=== PATIENT | female | born 1965 | race Caucasian/White ===

== ENCOUNTER 2017-08-07 23:34 | Emergency (ER) | payer MEDICAID ==
[2017-08-08 00:05] LABS: BASOPHILS # (AUTO) 0.1 10^3/uL (0.0-0.1); BASOPHILS % (AUTO) 0.7 %; EOSINOPHILS # (AUTO) 0.2 10^3/uL (0.0-0.7); EOSINOPHILS % (AUTO) 1.8 %; HGB - HEMOGLOBIN 12.4 g/dL (12.0-16.0); LYMPHOCYTES # (AUTO) 2.6 10^3/uL (1.5-3.5); LYMPHOCYTES % (AUTO) 31.4 %; MEAN CORPUSCULAR HGB CONC 34.3 g/dL (32.0-36.0); MEAN CORPUSCULAR VOLUME 90.5 fL (81.0-99.0); MEAN PLATELET VOLUME 7.3 fL (7.9-10.8); MONOCYTES # (AUTO) 0.5 10^3/uL (0.0-1.0); MONOCYTES % (AUTO) 6.6 %; NEUTROPHILS # (AUTO) 4.9 10^3/uL (1.5-6.6); NEUTROPHILS % (AUTO) 59.5 %; PLT - PLATELET COUNT 223 10^3/uL (130-450); RED BLOOD COUNT 3.98 10^6/uL (4.20-5.40); RED CELL DISTRIBUTION WIDTH 13.7 % (12.0-15.0); WHITE BLOOD COUNT 8.2 x10^3/uL (4.8-10.8)
[2017-08-08 00:20] LABS: ALBUMIN 3.7 g/dL (3.2-5.5); ALBUMIN/GLOBULIN RATIO 1.3 (1.0-2.2); BILIRUBIN,TOTAL 0.5 mg/dL (0.2-1.0); CALCIUM 7.9 mg/dL (8.5-10.3); CREATININE 0.8 mg/dL (0.4-1.0); TOTAL PROTEIN 6.5 g/dL (6.7-8.2)
--- NOTE | 2017-08-08 00:48 | ED Physician Documentation ---
PD HPI CHEST PAIN - Stated complaint Stated Complaint: CHEST PX - Chief complaint Chief Complaint: Cardiac - History obtained from History obtained from: Patient - History of Present Illness Timing - onset: Enter time (18:00), Today Timing - onset during: Rest (while at home watching TV) Timing - duration: Hours (5) Timing - details: Constant Pain level now: 3 Quality: Pain, Other ("heavy", "squeezing" (per patient)) Location: Other (no radiation) Improved by: Nothing Worsened by: Other (no exacerbating factors) Associated symptoms: Nausea. No: Shortness of air, Diaphoresis, Vomiting Similar symptoms before: Has not had sx before Recently seen: Not recently seen Review of Systems Constitutional: reports: Reviewed and negative Cardiac: reports: Chest pain / pressure. denies: Palpitations Respiratory: reports: Reviewed and negative GI: reports: Nausea. denies: Abdominal Pain, Vomiting PD PAST MEDICAL HISTORY - Past Medical History Past Medical History: Yes Respiratory: Pneumonia Neuro: None - Past Surgical History Past Surgical History: Yes - Present Medications Home Medications: Ambulatory Orders Medication Instructions Recorded Confirmed LORazepam [Lorazepam] 0.5 - 1 mg PO Q6HR PRN #14 tablet 08/08/17 - Allergies Allergies/Adverse Reactions: Allergies Allergy/AdvReac Type Severity Reaction Status Date / Time Sulfa (Sulfonamide Allergy Unknown Verified 08/08/17 00:03 Antibiotics) - Social History Does the pt smoke?: No Smoking Status: Never smoker Does the pt drink ETOH?: No Does the pt have substance abuse?: No - Immunizations Immunizations are current?: Yes - POLST Patient has POLST: No PD ED PE NORMAL - Vitals Vital signs reviewed: Yes - General General: Alert and oriented X 3, No acute distress, Well developed/nourished - Neck Neck: Supple, no meningeal sign - Cardiac Cardiac: RRR, No murmur, No gallop, No rub - Respiratory Respiratory: No respiratory distress, Clear bilaterally - Abdomen Abdomen: Soft, Non tender - Extremities Extremities: No edema Results - Vitals Vitals: Vital Signs - 24 hr 08/07/17 08/08/17 08/08/17 23:40 00:06 00:31 Temperature 36.8 C Heart Rate 74 67 72 Respiratory 18 16 16 Rate Blood Pressure 135/57 H O2 Saturation 98 97 98 05/08/2108/08/17 08/08/17 00:45 01:13 03:28 Temperature Heart Rate 76 68 Respiratory 16 16 17 Rate Blood Pressure 115/75 110/78 O2 Saturation 94 98 08/08/17 03:50 Temperature Heart Rate 67 Respiratory 16 Rate Blood Pressure O2 Saturation 99 Oxygen O2 Source Room air - EKG (time done) No standard instances Rate: Rate (enter#) (78) Rhythm: NSR [place]: Normal Intervals: Normal [place] QRS: Normal Ischemia: Normal ST segments - Labs Labs: Laboratory Tests 08/07/17 08/07/17 08/07/17 23:50 23:50 23:50 WBC 8.2 RBC 3.98 L Hgb 12.4 Hct 36.0 L MCV 90.5 MCH 31.0 MCHC 34.3 RDW 13.7 Plt Count 223 MPV 7.3 L Neut # 4.9 Lymph # 2.6 [place] # 0.5 Eos # 0.2 Baso # 0.1 Absolute Nucleated RBC 0.00 Nucleated RBC % 0.0 Sodium 137 Potassium 3.9 Chloride 106 Carbon Dioxide 24 Anion Gap 7.0 BUN 14 Creatinine 0.8 Estimated GFR (MDRD) 76 L Glucose 106 H Calcium 7.9 L Total Bilirubin 0.5 AST 23 ALT 24 Alkaline Phosphatase 41 L Troponin I < 0.04 Total Protein 6.5 L Albumin 3.7 Globulin 2.8 Albumin/Globulin Ratio 1.3 Lipase 31 - Rads (name of study) chest xray Radiology: Prelim report reviewed, See rad report PD MEDICAL DECISION MAKING - ED course Complexity details: reviewed results, re-evaluated patient, considered differential, d/w patient Departure - Departure Disposition: 01 Home, Self Care Clinical Impression: Chest pain Qualifiers: Chest pain type: unspecified Qualified Code(s): R07.9 - Chest pain, unspecified Condition: Good Instructions: ED Chest Pain Atypical Unkn Cause Follow-Up: Jose Sanches MD [Primary Care Provider] - Within 1 week Prescriptions: LORazepam [Lorazepam] 0.5 - 1 mg PO Q6HR PRN #14 tablet PRN Reason: Anxiety Discharge Date/Time: 08/08/17 03:52
--- NOTE | 2017-08-08 02:02 | XRAY Report ---
EXAM: CHEST RADIOGRAPHY EXAM DATE: 08/08/2017 01:30 AM. CLINICAL HISTORY: Chest pain. COMPARISON: 08/12/2013. TECHNIQUE: 2 views. FINDINGS: Lungs/Pleura: No focal opacities evident. No pleural effusion. No pneumothorax. Normal volumes. Mediastinum: Heart and mediastinal contours are unremarkable. Other: None. IMPRESSION: Stable negative 2-view chest radiography. [facility] Referring Provider Line: [phone] SITE ID: [id number]
[2017-08-08 03:29] VITALS: BP 110/78
== END 2017-08-08 03:52 | disposition home or self-care (01) ==
LOC: ED 23:34
DX: R07.9 Chest pain, unspecified (principal)
CPT/HCPCS: 36415; 71046; 80053; 83690; 84484; 85025; 93005; 99283; 99284

== ENCOUNTER 2017-09-01 08:00 | Outpatient (CLI) | payer MEDICAID | END 2017-09-01 23:59 | disposition home or self-care (01) | LOC: LAB.R 08:00 | PROVIDERS: ATTEND Internal Medicine | DX: K59.00 Constipation, unspecified (principal); R11.0 Nausea | CPT/HCPCS: 81599; 87177; 87209; 87329 ==

== ENCOUNTER 2020-04-18 07:00 | Outpatient (CLI) | payer MEDICAID | END 2020-04-18 23:59 | disposition home or self-care (01) | LOC: COV 07:00 | PROVIDERS: ATTEND Family Medicine | DX: R05 Cough (principal); Z20.822 Contact with and (suspected) exposure to COVID-19; R53.83 Other fatigue; R68.83 Chills (without fever); R19.7 Diarrhea, unspecified; R11.0 Nausea ==

== ENCOUNTER 2021-12-29 14:21 | Emergency (ER) | payer MEDICAID ==
--- OUTSIDE RECORDS SUMMARY | 2021-12-29 14:28 | EXTERNAL MEDICAL SUMMARY RPT | Continuity of Care Document ---
:1965 Author Organization [facility] Address [address] [place] [address] Phone Allergies and Intolerances date description facility type (no date) [facility] (unknown) Encounters No information. Functional Status No information. Immunizations No information. Medications No information. Problems No information. Procedures date description facility [id number] [facility] Results/Labs test date author facility value unit interpret ation Result panel 1 (unknown) (no (unknown) (unknown) (no value) (units (unk nown) date) unknown) (unknown) (no (unknown) (unknown) [place], [place] (units ( unknown) date) [id number] unknown) (unknown) (no (unknown) (unknown) Draft (units (unkno wn) date) unknown) (unknown) (no (unknown) (unknown) [facility] (units (unknown[facility] date[facility] unknown) (unknown) (no (unknown) (unknown) HIVES (units (unkno wn) date) unknown) (unknown) (no (unknown) (unknown) Internal (units (unkno wn) date) Medicine Office unknown) Visit (unknown) (no (unknown) (unknown) NAUSEA (units (unkno wn) date) unknown) (unknown) (no (unknown) (unknown) (no value) (units (unk nown) date) unknown) (unknown) (no (unknown) (unknown) (Severe, (units (unkno wn) date) Verified 09/12/21 unknown) 10:51) (unknown) (no (unknown) (unknown) [id number] (units (unkno wn) date) unknown) (unknown) (no (unknown) (unknown) 09/25/21 (units (unkno wn) date) unknown) (unknown) (no (unknown) (unknown) Age/Sex: 56 / F (units (unknown) date) Date of Service: unknown) (unknown) (no (unknown) (unknown) Allergies (units (unkn own) date) unknown) (unknown) (no (unknown) (unknown) Arthritis (units (unkn own) date) unknown) (unknown) (no (unknown) (unknown) Asthma (units (unkno wn) date) unknown) (unknown) (no (unknown) (unknown) Attending Dr: (units ( unknown) date) Rocco Pyle MD unknown) (unknown) (no (unknown) (unknown) Bruises easily (units (unknown) date) unknown) (unknown) (no (unknown) (unknown) Constipation (units (u nknown) date) unknown) (unknown) (no (unknown) (unknown) : 1965 (units (unknown) date) Acct:[id number] unknown) (unknown) (no (unknown) (unknown) Dept at (units (unkno wn) date) . unknown) (unknown) (no (unknown) (unknown) Documented By: (units (unknown) date) Rocco Pyle MD unknown) 10/03/21 0727 (unknown) (no (unknown) (unknown) Family History (units (unknown) date) (Reviewed unknown) 09/12/21 @ 14:01 by Milka Viramontes PA-C) (unknown) (no (unknown) (unknown) Father Heart (units (u nknown) date) disease unknown) (unknown) (no (unknown) (unknown) Fibromyalgia (units (u nknown) date) unknown) (unknown) (no (unknown) (unknown) Former smoker (units ( unknown) date) unknown) (unknown) (no (unknown) (unknown) Gastroparesis (units ( unknown) date) unknown) (unknown) (no (unknown) (unknown) Grandfather (units (un known) date) Heart disease unknown) (unknown) (no (unknown) (unknown) Grandfather (units (un known) date) Stomach cancer unknown) (unknown) (no (unknown) (unknown) Grandmother (units (un known) date) Cancer unknown) (unknown) (no (unknown) (unknown) Greater (units (unkno wn) date) trochanteric unknown) bursitis of right hip (unknown) (no (unknown) (unknown) Heart murmur (units (u nknown) date) unknown) (unknown) (no (unknown) (unknown) History of foot (units (unknown) date) surgery (08/2015) unknown) (unknown) (no (unknown) (unknown) History of (units (unk nown) date) pneumonia unknown) (unknown) (no (unknown) (unknown) History of third (units (unknown) date) molar tooth unknown) extraction (1984) (unknown) (no (unknown) (unknown) History of (units (unk nown) date) thyroidectomy unknown) (07/11/14) (unknown) (no (unknown) (unknown) Intake (units (unkno wn) date) unknown) (unknown) (no (unknown) (unknown) Intake Note: (units (u nknown) date) unknown) (unknown) (no (unknown) (unknown) Last Menstural (units (unknown) date) Cycle + Details unknown) (unknown) (no (unknown) (unknown) Loc: [facility] (units (unkno wn) date) unknown) (unknown) (no (unknown) (unknown) Low blood sugar (units (unknown) date) unknown) (unknown) (no (unknown) (unknown) 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) () (unknown) (no (unknown) (unknown) Medical History (units (unknown) date) (Reviewed unknown) 09/12/21 @ 14:01 by Milka Viramontes PA-C) (unknown) (no (unknown) (unknown) Menstrual (units (unkn own) date) migraine, not unknown) intractable, without status migrainosus (unknown) (no (unknown) (unknown) Migraines (units (unkn own) date) unknown) (unknown) (no (unknown) (unknown) Mother Stroke (units ( unknown) date) unknown) (unknown) (no (unknown) (unknown) Osteoarthritis (units (unknown) date) unknown) (unknown) (no (unknown) (unknown) Other Menstrual (units (unknown) date) Period: unknown) Postmenopausal (unknown) (no (unknown) (unknown) PFSH (units (unkno wn) date) unknown) (unknown) (no (unknown) (unknown) Patient: (units (unkno wn) date) Britton,Yolanda A unknown) MR#: [id number] (unknown) (no (unknown) (unknown) Piriformis (units (unk nown) date) syndrome unknown) (unknown) (no (unknown) (unknown) Reason For Visit (units (unknown) date) unknown) (unknown) (no (unknown) (unknown) SENSITIVE TO (units (u nknown) date) NARCOTICS Allergy unknown) (Severe, Uncoded 09/12/21 10:51) (unknown) (no (unknown) (unknown) Sacral (units (unkno wn) date) dysfunction unknown) (unknown) (no (unknown) (unknown) Signed By: (units (unk nown) date) unknown) (unknown) (no (unknown) (unknown) Smoking Status: (units (unknown) date) Former smoker unknown) (unknown) (no (unknown) (unknown) Social History (units (unknown) date) unknown) (unknown) (no (unknown) (unknown) Status post (units (un known) date) endometrial unknown) ablation (07/11/14) (unknown) (no (unknown) (unknown) Status post (units (un known) date) laparoscopy unknown) (1982) (unknown) (no (unknown) (unknown) Status post (units (un known) date) laparoscopy unknown) (2001) (unknown) (no (unknown) (unknown) Sulfa (units (unkno wn) date) (Sulfonamide unknown) Antibiotics) [SULFA (SULFONAMIDE ANTIBIOTICS)] Allergy (unknown) (no (unknown) (unknown) Surgical History (units (unknown) date) (Reviewed unknown) 09/12/21 @ 14:01 by Mikla Viramontes PA-C) (unknown) (no (unknown) (unknown) Tear of (units (unkno wn) date) acetabular labrum unknown) (unknown) (no (unknown) (unknown) This note may (units ( unknown) date) have been all or unknown) partially generated using voice recognition (unknown) (no (unknown) (unknown) Tobacco + (units (unkn own) date) Substance Use unknown) (unknown) (no (unknown) (unknown) Tobacco Status (units (unknown) date) unknown) (unknown) (no (unknown) (unknown) Visit Reasons: (units (unknown) date) hand follow unknown) up/pre DM labs follow up (unknown) (no (unknown) (unknown) alcohol intake: (units (unknown) date) current unknown) (unknown) (no (unknown) (unknown) codeine (units (unkno wn) date) [CODEINE] Allergy unknown) (Mild, Verified 09/12/21 10:51) (unknown) (no (unknown) (unknown) covid (units (unkno wn) date) unknown) (unknown) (no (unknown) (unknown) cscope (units (unkno wn) date) unknown) (unknown) (no (unknown) (unknown) f/u hand (units (unkno wn) date) unknown) (unknown) (no (unknown) (unknown) have occurred. (units (unknown) date) If there are any unknown) questions, please contact the Medical Records (unknown) (no (unknown) (unknown) household (units (unkn own) date) members: none unknown) (unknown) (no (unknown) (unknown) mammo (units (unkno wn) date) unknown) (unknown) (no (unknown) (unknown) marital status: (units (unknown) date) unknown unknown) (unknown) (no (unknown) (unknown) may occur. (units (unk nown) date) Occasional unknown) wrong-word or 'sound-alike' substitutions may have (unknown) (no (unknown) (unknown) occupational (units (u nknown) date) status: employed unknown) (unknown) (no (unknown) (unknown) occurred due to (units (unknown) date) the inherent unknown) limitations of voice recognition software. Please (unknown) (no (unknown) (unknown) pre- DM labs (units (u nknown) date) unknown) (unknown) (no (unknown) (unknown) read the note (units ( unknown) date) carefully and unknown) recognize, using context, where these substitutions (unknown) (no (unknown) (unknown) software. (units (unkn own) date) Although every unknown) effort is made to edit content, wink cutter operator errors (unknown) (no (unknown) (unknown) substance use (units ( unknown) date) type: does not unknown) use (unknown) (no (unknown) (unknown) td (units (unkno wn) date) unknown) Result panel 2 (unknown) (no (unknown) (unknown) (no value) (units (unk nown) date) unknown) (unknown) (no (unknown) (unknown) [place], [place] (units ( unknown) date) [id number] unknown) (unknown) (no (unknown) (unknown) Draft (units (unkno wn) date) unknown) (unknown) (no (unknown) (unknown) [facility] ([facility] ([facility] date[facility] unknown) (unknown) (no (unknown) (unknown) HIVES (units (unkno wn) date) unknown) (unknown) (no (unknown) (unknown) Internal (units (unkno wn) date) Medicine Office unknown) Visit (unknown) (no (unknown) (unknown) NAUSEA (units (unkno wn) date) unknown) (unknown) (no (unknown) (unknown) (no value) (units (unk nown) date) unknown) (unknown) (no (unknown) (unknown) (Severe, (units (unkno wn) date) Verified 09/12/21 unknown) 10:51) (unknown) (no (unknown) (unknown) [id number] (units (unkno wn) date) unknown) (unknown) (no (unknown) (unknown) 10/03/21 (units (unkno wn) date) unknown) (unknown) (no (unknown) (unknown) Age/Sex: 56 / F (units (unknown) date) Date of Service: unknown) (unknown) (no (unknown) (unknown) Allergies (units (unkn own) date) unknown) (unknown) (no (unknown) (unknown) Arthritis (units (unkn own) date) unknown) (unknown) (no (unknown) (unknown) Asthma (units (unkno wn) date) unknown) (unknown) (no (unknown) (unknown) Attending Dr: (units ( unknown) date) Rocco Pyle MD unknown) (unknown) (no (unknown) (unknown) Bruises easily (units (unknown) date) unknown) (unknown) (no (unknown) (unknown) Constipation (units (u nknown) date) unknown) (unknown) (no (unknown) (unknown) : 1965 (units (unknown) date) Acct:[id number] unknown) (unknown) (no (unknown) (unknown) Dept at (units (unkno wn) date) . unknown) (unknown) (no (unknown) (unknown) Documented By: (units (unknown) date) Rocco Pyle MD unknown) 10/03/21 0727 (unknown) (no (unknown) (unknown) Family History (units (unknown) date) (Reviewed unknown) 09/12/21 @ 14:01 by Milka Viramontes PA-C) (unknown) (no (unknown) (unknown) Father Heart (units (u nknown) date) disease unknown) (unknown) (no (unknown) (unknown) Fibromyalgia (units (u nknown) date) unknown) (unknown) (no (unknown) (unknown) Former smoker (units ( unknown) date) unknown) (unknown) (no (unknown) (unknown) Gastroparesis (units ( unknown) date) unknown) (unknown) (no (unknown) (unknown) Grandfather (units (un known) date) Heart disease unknown) (unknown) (no (unknown) (unknown) Grandfather (units (un known) date) Stomach cancer unknown) (unknown) (no (unknown) (unknown) Grandmother (units (un known) date) Cancer unknown) (unknown) (no (unknown) (unknown) Greater (units (unkno wn) date) trochanteric unknown) bursitis of right hip (unknown) (no (unknown) (unknown) Heart murmur (units (u nknown) date) unknown) (unknown) (no (unknown) (unknown) History of foot (units (unknown) date) surgery (08/2015) unknown) (unknown) (no (unknown) (unknown) History of (units (unk nown) date) pneumonia unknown) (unknown) (no (unknown) (unknown) History of third (units (unknown) date) molar tooth unknown) extraction (1984) (unknown) (no (unknown) (unknown) History of (units (unk nown) date) thyroidectomy unknown) (07/11/14) (unknown) (no (unknown) (unknown) Intake (units (unkno wn) date) unknown) (unknown) (no (unknown) (unknown) Intake Note: (units (u nknown) date) unknown) (unknown) (no (unknown) (unknown) Last Menstural (units (unknown) date) Cycle + Details unknown) (unknown) (no (unknown) (unknown) Loc: [facility] (units (unkno wn) date) unknown) (unknown) (no (unknown) (unknown) Low blood sugar (units (unknown) date) unknown) (unknown) (no (unknown) (unknown) 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) (unknown) (no (unknown) (unknown) Medical History (units (unknown) date) (Reviewed unknown) 09/12/21 @ 14:01 by Milka Viramontes PA-C) (unknown) (no (unknown) (unknown) Menstrual (units (unkn own) date) migraine, not unknown) intractable, without status migrainosus (unknown) (no (unknown) (unknown) Migraines (units (unkn own) date) unknown) (unknown) (no (unknown) (unknown) Mother Stroke (units ( unknown) date) unknown) (unknown) (no (unknown) (unknown) Osteoarthritis (units (unknown) date) unknown) (unknown) (no (unknown) (unknown) Other Menstrual (units (unknown) date) Period: unknown) Postmenopausal (unknown) (no (unknown) (unknown) PFSH (units (unkno wn) date) unknown) (unknown) (no (unknown) (unknown) Patient: (units (unkno wn) date) Yolanda Britton unknown) MR#: [id number] (unknown) (no (unknown) (unknown) Piriformis (units (unk nown) date) syndrome unknown) (unknown) (no (unknown) (unknown) Reason For Visit (units (unknown) date) unknown) (unknown) (no (unknown) (unknown) SENSITIVE TO (units (u nknown) date) NARCOTICS Allergy unknown) (Severe, Uncoded 09/12/21 10:51) (unknown) (no (unknown) (unknown) Sacral (units (unkno wn) date) dysfunction unknown) (unknown) (no (unknown) (unknown) Signed By: (units (unk nown) date) unknown) (unknown) (no (unknown) (unknown) Smoking Status: (units (unknown) date) Former smoker unknown) (unknown) (no (unknown) (unknown) Social History (units (unknown) date) unknown) (unknown) (no (unknown) (unknown) Status post (units (un known) date) endometrial unknown) ablation (07/11/14) (unknown) (no (unknown) (unknown) Status post (units (un known) date) laparoscopy unknown) (1982) (unknown) (no (unknown) (unknown) Status post (units (un known) date) laparoscopy unknown) (2001) (unknown) (no (unknown) (unknown) Sulfa (units (unkno wn) date) (Sulfonamide unknown) Antibiotics) [SULFA (SULFONAMIDE ANTIBIOTICS)] Allergy (unknown) (no (unknown) (unknown) Surgical History (units (unknown) date) (Reviewed unknown) 09/12/21 @ 14:01 by Milka Viramontes PA-C) (unknown) (no (unknown) (unknown) Tear of (units (unkno wn) date) acetabular labrum unknown) (unknown) (no (unknown) (unknown) This note may (units ( unknown) date) have been all or unknown) partially generated using voice recognition (unknown) (no (unknown) (unknown) Tobacco + (units (unkn own) date) Substance Use unknown) (unknown) (no (unknown) (unknown) Tobacco Status (units (unknown) date) unknown) (unknown) (no (unknown) (unknown) Visit Reasons: (units (unknown) date) hand follow unknown) up/pre DM labs follow up (unknown) (no (unknown) (unknown) alcohol intake: (units (unknown) date) current unknown) (unknown) (no (unknown) (unknown) codeine (units (unkno wn) date) [CODEINE] Allergy unknown) (Mild, Verified 09/12/21 10:51) (unknown) (no (unknown) (unknown) covid (units (unkno wn) date) unknown) (unknown) (no (unknown) (unknown) cscope - she (units (u nknown) date) sees Gi unknown) (unknown) (no (unknown) (unknown) f/u hand- (units (unkn own) date) physical therapy unknown) did not help still having cramping (unknown) (no (unknown) (unknown) have occurred. (units (unknown) date) If there are any unknown) questions, please contact the Medical Records (unknown) (no (unknown) (unknown) household (units (unkn own) date) members: none unknown) (unknown) (no (unknown) (unknown) mammo - (units (unkno wn) date) unknown) (unknown) (no (unknown) (unknown) marital status: (units (unknown) date) unknown unknown) (unknown) (no (unknown) (unknown) may occur. (units (unk nown) date) Occasional unknown) wrong-word or 'sound-alike' substitutions may have (unknown) (no (unknown) (unknown) occupational (units (u nknown) date) status: employed unknown) (unknown) (no (unknown) (unknown) occurred due to (units (unknown) date) the inherent unknown) limitations of voice recognition software. Please (unknown) (no (unknown) (unknown) pre- DM labs (units (u nknown) date) unknown) (unknown) (no (unknown) (unknown) read the note (units ( unknown) date) carefully and unknown) recognize, using context, where these substitutions (unknown) (no (unknown) (unknown) rt foot on top (units (unknown) date) it hurts not sure unknown) if its broken but no known injury (unknown) (no (unknown) (unknown) software. (units (unkn own) date) Although every unknown) effort is made to edit content, wink cutter operator errors (unknown) (no (unknown) (unknown) substance use (units ( unknown) date) type: does not unknown) use (unknown) (no (unknown) (unknown) td (units (unkno wn) date) unknown) Result panel 3 (unknown) (no (unknown) (unknown) (no value) (units (unk nown) date) unknown) (unknown) (no (unknown) (unknown) (no value) (units (unk nown) date) unknown) (unknown) (no (unknown) (unknown) 10/03/21 (units (unkno wn) date) unknown) (unknown) (no (unknown) (unknown) 11:39 (units (unkno wn) date) unknown) (unknown) (no (unknown) (unknown) [employer] (units ( unknown) date) [id number] unknown) (unknown) (no (unknown) (unknown) Draft (units (unkno wn) date) unknown) (unknown) (no (unknown) (unknown) [facility] (units (unknown) date[facility] unknown) (unknown) (no (unknown) (unknown) HIVES (units (unkno wn) date) unknown) (unknown) (no (unknown) (unknown) Internal Medicine (units (unknown) date) Office Visit unknown) (unknown) (no (unknown) (unknown) NAUSEA (units (unkno wn) date) unknown) (unknown) (no (unknown) (unknown) (no value) (units (unk nown) date) unknown) (unknown) (no (unknown) (unknown) (Severe, Verified (units (unknown) date) 10/03/21 11:38) unknown) (unknown) (no (unknown) (unknown) [id number] (units (unkno wn) date) unknown) (unknown) (no (unknown) (unknown) 10/03/21 (units (unkno wn) date) unknown) (unknown) (no (unknown) (unknown) 10/03/21] (units (unkn own) date) unknown) (unknown) (no (unknown) (unknown) 11/17/17 [History (units (unknown) date) Confirmed unknown) 10/03/21] (unknown) (no (unknown) (unknown) 11/27/20 [History (units (unknown) date) Confirmed unknown) 10/03/21] (unknown) (no (unknown) (unknown) 12/06/20 [Rx (units (u nknown) date) Confirmed unknown) 10/03/21] (unknown) (no (unknown) (unknown) Age/Sex: 56 / F (units (unknown) date) Date of Service: unknown) (unknown) (no (unknown) (unknown) Allergies (units (unkn own) date) unknown) (unknown) (no (unknown) (unknown) Arthritis (units (unkn own) date) unknown) (unknown) (no (unknown) (unknown) Asthma (units (unkno wn) date) unknown) (unknown) (no (unknown) (unknown) Attending Dr: (units ( unknown) date) Rocco Pyle MD unknown) (unknown) (no (unknown) (unknown) BMI 35.6 (units (unkno wn) date) unknown) (unknown) (no (unknown) (unknown) BP 122/80 (units (unkn own) date) unknown) (unknown) (no (unknown) (unknown) Blood Pressure (units (unknown) date) Location Lt unknown) brachial (unknown) (no (unknown) (unknown) Bruises easily (units (unknown) date) unknown) (unknown) (no (unknown) (unknown) Confirmed (units (unkn own) date) 10/03/21] unknown) (unknown) (no (unknown) (unknown) Constipation (units (u nknown) date) unknown) (unknown) (no (unknown) (unknown) : 1965 (units (unknown) date) Acct:[id number] unknown) (unknown) (no (unknown) (unknown) Dept at (units (unkno wn) date) . unknown) (unknown) (no (unknown) (unknown) Documented By: (units (unknown) date) Rocco Pyle MD unknown) 10/03/21 0727 (unknown) (no (unknown) (unknown) Family History (units (unknown) date) (Reviewed 09/12/21 unknown) @ 14:01 by Milka Viramontes PA-C) (unknown) (no (unknown) (unknown) Father Heart (units (u nknown) date) disease unknown) (unknown) (no (unknown) (unknown) Fibromyalgia (units (u nknown) date) unknown) (unknown) (no (unknown) (unknown) Former smoker (units ( unknown) date) unknown) (unknown) (no (unknown) (unknown) Gastroparesis (units ( unknown) date) unknown) (unknown) (no (unknown) (unknown) Grandfather Heart (units (unknown) date) disease unknown) (unknown) (no (unknown) (unknown) Grandfather (units (un known) date) Stomach cancer unknown) (unknown) (no (unknown) (unknown) Grandmother (units (un known) date) Cancer unknown) (unknown) (no (unknown) (unknown) Greater (units (unkno wn) date) trochanteric unknown) bursitis of right hip (unknown) (no (unknown) (unknown) Health Management (units (unknown) date) unknown) (unknown) (no (unknown) (unknown) Health Management (units (unknown) date) reviewed with unknown) patient: Yes (unknown) (no (unknown) (unknown) Heart murmur (units (u nknown) date) unknown) (unknown) (no (unknown) (unknown) Height 5 ft 6.5 (units (unknown) date) in unknown) (unknown) (no (unknown) (unknown) History of foot (units (unknown) date) surgery (08/2015) unknown) (unknown) (no (unknown) (unknown) History of (units (unk nown) date) pneumonia unknown) (unknown) (no (unknown) (unknown) History of third (units (unknown) date) molar tooth unknown) extraction (1984) (unknown) (no (unknown) (unknown) History of (units (unk nown) date) thyroidectomy unknown) (07/11/14) (unknown) (no (unknown) (unknown) Intake (units (unkno wn) date) unknown) (unknown) (no (unknown) (unknown) Intake Note: (units (u nknown) date) unknown) (unknown) (no (unknown) (unknown) Last Menstural (units (unknown) date) Cycle + Details unknown) (unknown) (no (unknown) (unknown) Loc: [facility] (units (unkno wn) date) unknown) (unknown) (no (unknown) (unknown) Low blood sugar (units (unknown) date) unknown) (unknown) (no (unknown) (unknown) 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) () (unknown) (no (unknown) (unknown) Medical History (units (unknown) date) (Reviewed 09/12/21 unknown) @ 14:01 by Milka Viramontes PA-C) (unknown) (no (unknown) (unknown) Medications (units (un known) date) unknown) (unknown) (no (unknown) (unknown) Menstrual (units (unkn own) date) migraine, not unknown) intractable, without status migrainosus (unknown) (no (unknown) (unknown) Migraines (units (unkn own) date) unknown) (unknown) (no (unknown) (unknown) Mother Stroke (units ( unknown) date) unknown) (unknown) (no (unknown) (unknown) Osteoarthritis (units (unknown) date) unknown) (unknown) (no (unknown) (unknown) Other Menstrual (units (unknown) date) Period: unknown) Postmenopausal (unknown) (no (unknown) (unknown) Oxygen Delivery (units (unknown) date) Method room air unknown) (unknown) (no (unknown) (unknown) PFSH (units (unkno wn) date) unknown) (unknown) (no (unknown) (unknown) PRN 08/24/19 (units (u nknown) date) [History Confirmed unknown) 10/03/21] (unknown) (no (unknown) (unknown) Patient: (units (unkno wn) date) Yolanda Britton unknown) MR#: [id number] (unknown) (no (unknown) (unknown) Piriformis (units (unk nown) date) syndrome unknown) (unknown) (no (unknown) (unknown) Position Sitting (units (unknown) date) unknown) (unknown) (no (unknown) (unknown) Pulse 91 H (units (unk nown) date) unknown) (unknown) (no (unknown) (unknown) Pulse Oximetry (units (unknown) date) (%) 99 unknown) (unknown) (no (unknown) (unknown) Pulse Source (units (u nknown) date) Monitor unknown) (unknown) (no (unknown) (unknown) Reason For Visit (units (unknown) date) unknown) (unknown) (no (unknown) (unknown) SENSITIVE TO (units (u nknown) date) NARCOTICS Allergy unknown) (Severe, Uncoded 10/03/21 11:38) (unknown) (no (unknown) (unknown) SUBCUT QMONTH (units ( unknown) date) 06/13/21 [History unknown) Confirmed 10/03/21] (unknown) (no (unknown) (unknown) Sacral (units (unkno wn) date) dysfunction unknown) (unknown) (no (unknown) (unknown) Signed By: (units (unk nown) date) unknown) (unknown) (no (unknown) (unknown) Smoking Status: (units (unknown) date) Former smoker unknown) (unknown) (no (unknown) (unknown) Social History (units (unknown) date) unknown) (unknown) (no (unknown) (unknown) Status post (units (un known) date) endometrial unknown) ablation (07/11/14) (unknown) (no (unknown) (unknown) Status post (units (un known) date) laparoscopy (1982) unknown) (unknown) (no (unknown) (unknown) Status post (units (un known) date) laparoscopy (2001) unknown) (unknown) (no (unknown) (unknown) Sulfa (units (unkno wn) date) (Sulfonamide unknown) Antibiotics) [SULFA (SULFONAMIDE ANTIBIOTICS)] Allergy (unknown) (no (unknown) (unknown) Surgical History (units (unknown) date) (Reviewed 09/12/21 unknown) @ 14:01 by Milka Viramontes PA-C) (unknown) (no (unknown) (unknown) Tear of (units (unkno wn) date) acetabular labrum unknown) (unknown) (no (unknown) (unknown) This note may (units ( unknown) date) have been all or unknown) partially generated using voice recognition (unknown) (no (unknown) (unknown) Tobacco + (units (unkn own) date) Substance Use unknown) (unknown) (no (unknown) (unknown) Tobacco Status (units (unknown) date) unknown) (unknown) (no (unknown) (unknown) Visit Reasons: (units (unknown) date) hand follow up/pre unknown) DM labs follow up (unknown) (no (unknown) (unknown) Vitals (units (unkno wn) date) unknown) (unknown) (no (unknown) (unknown) Weight 224 lb 9 (units (unknown) date) oz unknown) (unknown) (no (unknown) (unknown) alcohol intake: (units (unknown) date) current unknown) (unknown) (no (unknown) (unknown) cholecalciferol (units (unknown) date) (vitamin D3) 25 unknown) mcg (1,000 unit) capsule 1,000 unit PO DAILY (unknown) (no (unknown) (unknown) codeine [CODEINE] (units (unknown) date) Allergy (Mild, unknown) Verified 10/03/21 11:38) (unknown) (no (unknown) (unknown) covid- done (units (un known) date) unknown) (unknown) (no (unknown) (unknown) cscope - she sees (units (unknown) date) [facility], was the first one (unknown) (no (unknown) (unknown) diphenhydramine (units (unknown) date) 25 unknown) mg-acetaminophen 500 mg tablet (Tylenol PM Extra Strength) 1 (unknown) (no (unknown) (unknown) diphenhydramine-a (units (unknown) date) cetaminophen unknown) [Tylenol PM] PO BEDTIME 03/09/19 [History (unknown) (no (unknown) (unknown) doxylamine (units (unk nown) date) succinate 25 mg unknown) tablet (Unisom (doxylamine)) 25 mg PO BEDTIME PRN (unknown) (no (unknown) (unknown) eye support PO (units (unknown) date) 11/27/20 [History unknown) Confirmed 10/03/21] (unknown) (no (unknown) (unknown) f/u hand- (units (unkn own) date) physical therapy unknown) did not help still having cramping (unknown) (no (unknown) (unknown) fluconazole 150 (units (unknown) date) mg tablet 150 mg unknown) PO Q3D 2 doses #2 tabs 09/18/21 [Rx Confirmed (unknown) (no (unknown) (unknown) galcanezumab-gnlm (units (unknown) date) 120 mg/mL unknown) subcutaneous pen injector (Emgality Pen) 120 mg (unknown) (no (unknown) (unknown) have occurred. If (units (unknown) date) there are any unknown) questions, please contact the Medical Records (unknown) (no (unknown) (unknown) household (units (unkn own) date) members: none unknown) (unknown) (no (unknown) (unknown) lactobacillus (units ( unknown) date) combination no.8 unknown) [Adult Probiotic] PO DAILY 05/10/19 [History (unknown) (no (unknown) (unknown) levonorgestrel-eth (units (unknown) date) inyl estradiol 0.1 unknown) mg-20 mcg tablet (Aviane) 1 tab PO DAILY #4 (unknown) (no (unknown) (unknown) levothyroxine 100 (units (unknown) date) mcg tablet 100 mcg unknown) PO DAILY 03/06/21 [History Confirmed (unknown) (no (unknown) (unknown) mammo -done in (units (unknown) date) fall unknown) (unknown) (no (unknown) (unknown) marital status: (units (unknown) date) unknown unknown) (unknown) (no (unknown) (unknown) may occur. (units (unk nown) date) Occasional unknown) wrong-word or 'sound-alike' substitutions may have (unknown) (no (unknown) (unknown) mecobalamin (units (un known) date) (vitamin B12) unknown) 1,000 mcg disintegrating tablet,sublingual 1,000 mcg (unknown) (no (unknown) (unknown) melatonin 10 mg (units (unknown) date) capsule 5 mg PO unknown) BEDTIME Sleep 08/24/19 [History Confirmed (unknown) (no (unknown) (unknown) occupational (units (u nknown) date) status: employed unknown) (unknown) (no (unknown) (unknown) occurred due to (units (unknown) date) the inherent unknown) limitations of voice recognition software. Please (unknown) (no (unknown) (unknown) packets 05/31/21 (units (unknown) date) [Rx Confirmed unknown) 10/03/21] (unknown) (no (unknown) (unknown) pantoprazole 20 (units (unknown) date) mg tablet,delayed unknown) release 20 mg PO DAILY 05/10/19 [History (unknown) (no (unknown) (unknown) polyethylene (units (u nknown) date) glycol 3350 17 unknown) gram oral powder packet (Miralax) 17 gram PO DAILY (unknown) (no (unknown) (unknown) pre- DM labs (units (u nknown) date) unknown) (unknown) (no (unknown) (unknown) prednisone 10 mg (units (unknown) date) tablet 5 mg PO unknown) DAILY 03/06/21 [History Confirmed 10/03/21] (unknown) (no (unknown) (unknown) read the note (units ( unknown) date) carefully and unknown) recognize, using context, where these substitutions (unknown) (no (unknown) (unknown) rizatriptan 10 mg (units (unknown) date) tablet (Maxalt) 10 unknown) mg PO Q2H PRN Migraine Headache #9 tabs (unknown) (no (unknown) (unknown) rt foot on top it (units (unknown) date) hurts not sure if unknown) its broken but no known injury (unknown) (no (unknown) (unknown) software. (units (unkn own) date) Although every unknown) effort is made to edit content, wink cutter operator errors (unknown) (no (unknown) (unknown) sublingual DAILY (units (unknown) date) 05/10/19 [History unknown) Confirmed 10/03/21] (unknown) (no (unknown) (unknown) substance use (units ( unknown) date) type: does not use unknown) (unknown) (no (unknown) (unknown) tab PO BEDTIME (units (unknown) date) PRN Sleep 11/17/17 unknown) [History Confirmed 10/03/21] (unknown) (no (unknown) (unknown) td- ? (units (unkno wn) date) unknown) Result panel 4 (unknown) (no (unknown) (unknown) (no value) (units (unk nown) date) unknown) (unknown) (no (unknown) (unknown) [address] [place] [address] (units (unknown) date) unknown) (unknown) (no (unknown) (unknown) [place], [place] (units ( unknown) date) [id number] unknown) (unknown) (no (unknown) (unknown) [facility] (units (unknown) date) unknown) (unknown) (no (unknown) (unknown) Signed (units (unkno wn) date) unknown) (unknown) (no (unknown) (unknown) XRay Report (units (un known) date) unknown) (unknown) (no (unknown) (unknown) (no value) (units (unk nown) date) unknown) (unknown) (no (unknown) (unknown) 10/03/21 (units (unkno wn) date) unknown) (unknown) (no (unknown) (unknown) Approved by: (units (u nknown) date) Barrie Reyes, spencer Varela on 10/03/2021 at 14:30 (unknown) (no (unknown) (unknown) Bones: No (units (unkn own) date) fractures or unknown) dislocations. No suspicious bony lesions. There is a (unknown) (no (unknown) (unknown) COMPARISON: (units (un known) date) [facility], unknown) CR, XR FOOT LT MIN 3V, 01/27/2020, 15:30. (unknown) (no (unknown) (unknown) Dictated by: (units (u nknown) date) spencer Tafoya M.D. on 10/03/2021 at 14:28 (unknown) (no (unknown) (unknown) FINDINGS: (units (unkn own) date) unknown) (unknown) (no (unknown) (unknown) IMPRESSION: No (units (unknown) date) acute abnormality unknown) of the left foot. (unknown) (no (unknown) (unknown) INDICATIONS: Left (units (unknown) date) foot pain unknown) (unknown) (no (unknown) (unknown) Soft tissues: No (units (unknown) date) tibiotalar joint unknown) effusion. Achilles tendon appears normal. (unknown) (no (unknown) (unknown) TECHNIQUE: 3 (units (u nknown) date) views of the foot unknown) were acquired. (unknown) (no (unknown) (unknown) calcaneal spur. (units (unknown) date) Minimal unknown) degenerative changes of the interphalangeal joints. (unknown) (no (unknown) (unknown) or evidence of (units (unknown) date) inflammatory unknown) arthropathy. (unknown) (no (unknown) (unknown) [id number] (units (unkn own) date) unknown) (unknown) (no (unknown) (unknown) Accession Number: (units (unknown) date) [id number] unknown) (unknown) (no (unknown) (unknown) Age/Sex: 56 / F (units (unknown) date) Date of Service: unknown) (unknown) (no (unknown) (unknown) : 1965 (units (unknown) date) Acct:[id number] unknown) (unknown) (no (unknown) (unknown) Loc: RAD (units (unkno wn) date) unknown) (unknown) (no (unknown) (unknown) No erosions (units (un known) date) unknown) (unknown) (no (unknown) (unknown) Ordering (units (unkno wn) date) Provider: unknown) Rocco Pyle MD (unknown) (no (unknown) (unknown) PROCEDURE: XR (units ( unknown) date) FOOT LT MIN 3V unknown) (unknown) (no (unknown) (unknown) Patient: (units (unkno wn) date) Yolanda Britton unknown) MR#: [id number] (unknown) (no (unknown) (unknown) Procedure: XR (units ( unknown) date) foot LT min 3V unknown) (unknown) (no (unknown) (unknown) dorsal (units (unkno wn) date) unknown) Result panel 5 (unknown) (no (unknown) (unknown) (no value) (units (unk nown) date) unknown) (unknown) (no (unknown) (unknown) Status: Acute (units ( unknown) date) unknown) (unknown) (no (unknown) (unknown) (no value) (units (unk nown) date) unknown) (unknown) (no (unknown) (unknown) ADDENDUM (units (u nknown) date) unknown) (unknown) (no (unknown) (unknown) 10/03/21 (units (unkno wn) date) unknown) (unknown) (no (unknown) (unknown) 10/06/21 0903 (units ( unknown) date) unknown) (unknown) (no (unknown) (unknown) 10/06/21 0904 (units ( unknown) date) unknown) (unknown) (no (unknown) (unknown) 11:39 (units (unkno wn) date) unknown) (unknown) (no (unknown) (unknown) [facility] (units ( unknown) date) [id number] unknown) (unknown) (no (unknown) (unknown) [facility] ([facility] unknown) (unknown) (no (unknown) (unknown) HIVES (units (unkno wn) date) unknown) (unknown) (no (unknown) (unknown) Internal Medicine (units (unknown) date) Office Visit unknown) (unknown) (no (unknown) (unknown) NAUSEA (units (unkno wn) date) unknown) (unknown) (no (unknown) (unknown) Signed with (units (un known) date) Addenda unknown) (unknown) (no (unknown) (unknown) (no value) (units (unk nown) date) unknown) (unknown) (no (unknown) (unknown) At the very (units (un known) date) least, I require unknown) rheumatology to say in writing that they have (unknown) (no (unknown) (unknown) (1) 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, multiple sites: (unknown) (no (unknown) (unknown) (2) Steroid (units (un known) date) dependent: unknown) (unknown) (no (unknown) (unknown) (3) Fibromyalgia: (units (unknown) date) unknown) (unknown) (no (unknown) (unknown) (4) Right foot (units (unknown) date) pain: unknown) (unknown) (no (unknown) (unknown) (5) Obesity (BMI (units (unknown) date) 35.0-39.9 without unknown) comorbidity): (unknown) (no (unknown) (unknown) (Severe, Verified (units (unknown) date) 10/03/21 11:38) unknown) (unknown) (no (unknown) (unknown) (rheumatoid (units (un known) date) arthritis without unknown) rheumatoid factor). Ongoing treatment with (unknown) (no (unknown) (unknown) [id number] (units (unkno wn) date) unknown) (unknown) (no (unknown) (unknown) 10/03/21 (units (unkno wn) date) unknown) (unknown) (no (unknown) (unknown) 10/03/21] (units (unkn own) date) unknown) (unknown) (no (unknown) (unknown) 11/17/17 [History (units (unknown) date) Confirmed unknown) 10/03/21] (unknown) (no (unknown) (unknown) 11/27/20 [History (units (unknown) date) Confirmed unknown) 10/03/21] (unknown) (no (unknown) (unknown) 12/06/20 [Rx (units (u nknown) date) Confirmed unknown) 10/03/21] (unknown) (no (unknown) (unknown) 2020 and last (units ( unknown) date) fasting glucose unknown) was 96 mg/dL earlier this month. Does not take (unknown) (no (unknown) (unknown) Addendum (units (unkno wn) date) Documented By: unknown) Rocco Pyle MD (unknown) (no (unknown) (unknown) Addendum Signed (units (unknown) date) By: unknown) <Electronically signed by Rocco Pyle MD> (unknown) (no (unknown) (unknown) Affect: normal (units (unknown) date) affect unknown) (unknown) (no (unknown) (unknown) Age/Sex: 56 / F (units (unknown) date) Date of Service: unknown) (unknown) (no (unknown) (unknown) All systems (units (un known) date) reviewed + are unknown) unremarkable except as noted in HPI and below (unknown) (no (unknown) (unknown) Allergies (units (unkn own) date) unknown) (unknown) (no (unknown) (unknown) Appearance: (units (un known) date) grossly normal unknown) (unknown) (no (unknown) (unknown) Arthritis (units (unkn own) date) unknown) (unknown) (no (unknown) (unknown) Assessment + Plan (units (unknown) date) unknown) (unknown) (no (unknown) (unknown) Asthma (units (unkno wn) date) unknown) (unknown) (no (unknown) (unknown) Attending Dr: (units ( unknown) date) Rocco Pyle MD unknown) (unknown) (no (unknown) (unknown) Attitude: (units (unkn own) date) cooperative unknown) (unknown) (no (unknown) (unknown) BMI 35.6 (units (unkno wn) date) unknown) (unknown) (no (unknown) (unknown) BP 122/80 (units (unkn own) date) unknown) (unknown) (no (unknown) (unknown) Blood Pressure (units (unknown) date) Location Lt unknown) brachial (unknown) (no (unknown) (unknown) Bruises easily (units (unknown) date) unknown) (unknown) (no (unknown) (unknown) Chief Complaint (units (unknown) date) unknown) (unknown) (no (unknown) (unknown) Chief Complaint: (units (unknown) date) Multiple concerns unknown) (unknown) (no (unknown) (unknown) Concern for DM: (units (unknown) date) Chronic steroid unknown) use, but no diagnosis. Last A1c was 5.6% in (unknown) (no (unknown) (unknown) Confirmed (units (unkn own) date) 10/03/21] unknown) (unknown) (no (unknown) (unknown) Const (units (unkno wn) date) unknown) (unknown) (no (unknown) (unknown) Constipation (units (u nknown) date) unknown) (unknown) (no (unknown) (unknown) DMARDs because of (units (unknown) date) gastroparesis. unknown) Occupational therapy was not helpful. (unknown) (no (unknown) (unknown) : 1965 (units (unknown) date) Acct:[id number] unknown) (unknown) (no (unknown) (unknown) Dept at (units (unkno wn) date) . unknown) (unknown) (no (unknown) (unknown) Details: (units (unkno wn) date) unknown) (unknown) (no (unknown) (unknown) Discussed (units (unkn own) date) conservative unknown) management of right foot pain including careful (unknown) (no (unknown) (unknown) Documented By: (units (unknown) date) Rocco Pyle MD unknown) 10/03/21 0727 (unknown) (no (unknown) (unknown) Effort + (units (unkno wn) date) Inspection: normal unknown) respiratory effort, able to speak in complete (unknown) (no (unknown) (unknown) Exam (units (unkno wn) date) unknown) (unknown) (no (unknown) (unknown) Family History (units (unknown) date) (Reviewed 09/12/21 unknown) @ 14:01 by Milka Viramontes PA-C) (unknown) (no (unknown) (unknown) Father Heart (units (u nknown) date) disease unknown) (unknown) (no (unknown) (unknown) Fibromyalgia (units (u nknown) date) unknown) (unknown) (no (unknown) (unknown) Former smoker (units ( unknown) date) unknown) (unknown) (no (unknown) (unknown) Gastroparesis (units ( unknown) date) unknown) (unknown) (no (unknown) (unknown) General: (units (unkno wn) date) cooperative, unknown) healthy appearing, comfortable and no acute distress (unknown) (no (unknown) (unknown) Grandfather Heart (units (unknown) date) disease unknown) (unknown) (no (unknown) (unknown) Grandfather (units (un known) date) Stomach cancer unknown) (unknown) (no (unknown) (unknown) Grandmother (units (un known) date) Cancer unknown) (unknown) (no (unknown) (unknown) Greater (units (unkno wn) date) trochanteric unknown) bursitis of right hip (unknown) (no (unknown) (unknown) HPI (units (unkno wn) date) unknown) (unknown) (no (unknown) (unknown) Hand cramping (units ( unknown) date) appears to be an unknown) unfortunate combination of seronegative (unknown) (no (unknown) (unknown) Hand cramping: (units (unknown) date) Ongoing problem of unknown) more than a year. Has seen physical therapy (unknown) (no (unknown) (unknown) Health Management (units (unknown) date) unknown) (unknown) (no (unknown) (unknown) Health Management (units (unknown) date) reviewed with unknown) patient: Yes (unknown) (no (unknown) (unknown) Healthcare (units (unk nown) date) maintenance topics unknown) reviewed and the chart updated as necessary. (unknown) (no (unknown) (unknown) Heart murmur (units (u nknown) date) unknown) (unknown) (no (unknown) (unknown) Height 5 ft 6.5 (units (unknown) date) in unknown) (unknown) (no (unknown) (unknown) History of foot (units (unknown) date) surgery (08/2015) unknown) (unknown) (no (unknown) (unknown) History of (units (unk nown) date) pneumonia unknown) (unknown) (no (unknown) (unknown) History of third (units (unknown) date) molar tooth unknown) extraction (1984) (unknown) (no (unknown) (unknown) History of (units (unk nown) date) thyroidectomy unknown) (07/11/14) (unknown) (no (unknown) (unknown) Intake (units (unkno wn) date) unknown) (unknown) (no (unknown) (unknown) Intake Note: (units (u nknown) date) unknown) (unknown) (no (unknown) (unknown) Judgment: (units (unkn own) date) judgment good unknown) (unknown) (no (unknown) (unknown) Last Menstural (units (unknown) date) Cycle + Details unknown) (unknown) (no (unknown) (unknown) Loc: [facility] (units (unkno wn) date) unknown) (unknown) (no (unknown) (unknown) Low blood sugar (units (unknown) date) unknown) (unknown) (no (unknown) (unknown) 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) () (unknown) (no (unknown) (unknown) Medical History (units (unknown) date) (Reviewed 09/12/21 unknown) @ 14:01 by Milka Viramontes PA-C) (unknown) (no (unknown) (unknown) Medications (units (un known) date) unknown) (unknown) (no (unknown) (unknown) Menstrual (units (unkn own) date) migraine, not unknown) intractable, without status migrainosus (unknown) (no (unknown) (unknown) Mental Status: (units (unknown) date) mental status unknown) grossly normal (unknown) (no (unknown) (unknown) Migraines (units (unkn own) date) unknown) (unknown) (no (unknown) (unknown) Mood: congruent (units (unknown) date) mood unknown) (unknown) (no (unknown) (unknown) Mother Stroke (units ( unknown) date) unknown) (unknown) (no (unknown) (unknown) Ms. Britton is here (units (unknown) date) to follow-up on unknown) several unrelated issues. We talked about the (unknown) (no (unknown) (unknown) No history of (units (u nknown) date) similar symptoms. unknown) No overlying skin changes. Denies paresthesia, (unknown) (no (unknown) (unknown) Nutritional (units (un known) date) Appearance: unknown) overweight (unknown) (no (unknown) (unknown) Orientation: (units (u nknown) date) oriented x3 unknown) (unknown) (no (unknown) (unknown) Osteoarthritis (units (unknown) date) unknown) (unknown) (no (unknown) (unknown) Other Menstrual (units (unknown) date) Period: unknown) Postmenopausal (unknown) (no (unknown) (unknown) Oxygen Delivery (units (unknown) date) Method room air unknown) (unknown) (no (unknown) (unknown) PFSH (units (unkno wn) date) unknown) (unknown) (no (unknown) (unknown) PRN 08/24/19 (units (u nknown) date) [History Confirmed unknown) 10/03/21] (unknown) (no (unknown) (unknown) Patient: (units (unkno wn) date) Yolanda Britton unknown) MR#: [id number] (unknown) (no (unknown) (unknown) Piriformis (units (unk nown) date) syndrome unknown) (unknown) (no (unknown) (unknown) Plan (units (unkno wn) date) unknown) (unknown) (no (unknown) (unknown) Position Sitting (units (unknown) date) unknown) (unknown) (no (unknown) (unknown) Psych (units (unkno wn) date) unknown) (unknown) (no (unknown) (unknown) Pulse 91 H (units (unk nown) date) unknown) (unknown) (no (unknown) (unknown) Pulse Oximetry (units (unknown) date) (%) 99 unknown) (unknown) (no (unknown) (unknown) Pulse Source (units (u nknown) date) Monitor unknown) (unknown) (no (unknown) (unknown) ROS (units (unkno wn) date) unknown) (unknown) (no (unknown) (unknown) Reason For Visit (units (unknown) date) unknown) (unknown) (no (unknown) (unknown) Resp (units (unkno wn) date) unknown) (unknown) (no (unknown) (unknown) Reviewed recent (units (unknown) date) labs with the unknown) patient. Fasting glucose values are reassuring (unknown) (no (unknown) (unknown) Right foot pain: (units (unknown) date) Ongoing for unknown) several months. No clear inciting event, injury, (unknown) (no (unknown) (unknown) SENSITIVE TO (units (u nknown) date) NARCOTICS Allergy unknown) (Severe, Uncoded 10/03/21 11:38) (unknown) (no (unknown) (unknown) SUBCUT QMONTH (units ( unknown) date) 06/13/21 [History unknown) Confirmed 10/03/21] (unknown) (no (unknown) (unknown) Sacral (units (unkno wn) date) dysfunction unknown) (unknown) (no (unknown) (unknown) Signed By: (units (unk nown) date) <Electronically unknown) signed by Rocco Pyle MD> (unknown) (no (unknown) (unknown) Smoking Status: (units (unknown) date) Former smoker unknown) (unknown) (no (unknown) (unknown) Social History (units (unknown) date) unknown) (unknown) (no (unknown) (unknown) Speech and (units (unk nown) date) Movement: speech unknown) and movement normal (unknown) (no (unknown) (unknown) Status post (units (un known) date) endometrial unknown) ablation (07/11/14) (unknown) (no (unknown) (unknown) Status post (units (un known) date) laparoscopy (1982) unknown) (unknown) (no (unknown) (unknown) Status post (units (un known) date) laparoscopy (2001) unknown) (unknown) (no (unknown) (unknown) Sulfa (units (unkno wn) date) (Sulfonamide unknown) Antibiotics) [SULFA (SULFONAMIDE ANTIBIOTICS)] Allergy (unknown) (no (unknown) (unknown) Surgical History (units (unknown) date) (Reviewed 09/12/21 unknown) @ 14:01 by Milka Viramontes PA-C) (unknown) (no (unknown) (unknown) Tear of (units (unkno wn) date) acetabular labrum unknown) (unknown) (no (unknown) (unknown) This note may (units ( unknown) date) have been all or unknown) partially generated using voice recognition (unknown) (no (unknown) (unknown) Thought Content: (units (unknown) date) normal unknown) (unknown) (no (unknown) (unknown) Thought Process: (units (unknown) date) normal unknown) (unknown) (no (unknown) (unknown) Tobacco + (units (unkn own) date) Substance Use unknown) (unknown) (no (unknown) (unknown) Tobacco Status (units (unknown) date) unknown) (unknown) (no (unknown) (unknown) Visit Reasons: (units (unknown) date) hand follow up/pre unknown) DM labs follow up (unknown) (no (unknown) (unknown) Vitals (units (unkno wn) date) unknown) (unknown) (no (unknown) (unknown) Weight 224 lb 9 (units (unknown) date) oz unknown) (unknown) (no (unknown) (unknown) alcohol intake: (units (unknown) date) current unknown) (unknown) (no (unknown) (unknown) and rheumatology (units (unknown) date) on this matter. unknown) Diagnosed with an inflammatory polyarthritis (unknown) (no (unknown) (unknown) appropriate. (units (u nknown) date) unknown) (unknown) (no (unknown) (unknown) cholecalciferol (units (unknown) date) (vitamin D3) 25 unknown) mcg (1,000 unit) capsule 1,000 unit PO DAILY (unknown) (no (unknown) (unknown) codeine [CODEINE] (units (unknown) date) Allergy (Mild, unknown) Verified 10/03/21 11:38) (unknown) (no (unknown) (unknown) covid- done (units (un known) date) unknown) (unknown) (no (unknown) (unknown) cscope - she sees (units (unknown) date) [facility] group, was the first one (unknown) (no (unknown) (unknown) diphenhydramine (units (unknown) date) 25 unknown) mg-acetaminophen 500 mg tablet (Tylenol PM Extra Strength) 1 (unknown) (no (unknown) (unknown) diphenhydramine-a (units (unknown) date) cetaminophen unknown) [Tylenol PM] PO BEDTIME 03/09/19 [History (unknown) (no (unknown) (unknown) doxylamine (units (unk nown) date) succinate 25 mg unknown) tablet (Unisom (doxylamine)) 25 mg PO BEDTIME PRN (unknown) (no (unknown) (unknown) evaluation of (units (u nknown) date) footwear. Consider unknown) referral to Podiatry for symptoms which do not (unknown) (no (unknown) (unknown) eye support PO (units (unknown) date) 11/27/20 [History unknown) Confirmed 10/03/21] (unknown) (no (unknown) (unknown) f/u hand- (units (unkn own) date) physical therapy unknown) did not help still having cramping (unknown) (no (unknown) (unknown) factors including (units (unknown) date) obesity and unknown) chronic steroid use. Routine monitoring is (unknown) (no (unknown) (unknown) fluconazole 150 (units (unknown) date) mg tablet 150 mg unknown) PO Q3D 2 doses #2 tabs 09/18/21 [Rx Confirmed (unknown) (no (unknown) (unknown) following topics: (units (unknown) date) unknown) (unknown) (no (unknown) (unknown) footdrop, (units (unkn own) date) peripheral unknown) cyanosis, and open wounds. (unknown) (no (unknown) (unknown) galcanezumab-gnlm (units (unknown) date) 120 mg/mL unknown) subcutaneous pen injector (Emgality Pen) 120 mg (unknown) (no (unknown) (unknown) have occurred. If (units (unknown) date) there are any unknown) questions, please contact the Medical Records (unknown) (no (unknown) (unknown) household (units (unkn own) date) members: none unknown) (unknown) (no (unknown) (unknown) lactobacillus (units ( unknown) date) combination no.8 unknown) [Adult Probiotic] PO DAILY 05/10/19 [History (unknown) (no (unknown) (unknown) levonorgestrel-eth (units (unknown) date) inyl estradiol 0.1 unknown) mg-20 mcg tablet (Aviane) 1 tab PO DAILY #4 (unknown) (no (unknown) (unknown) levothyroxine 100 (units (unknown) date) mcg tablet 100 mcg unknown) PO DAILY 03/06/21 [History Confirmed (unknown) (no (unknown) (unknown) mammo -done in (units (unknown) date) fall unknown) (unknown) (no (unknown) (unknown) marital status: (units (unknown) date) unknown unknown) (unknown) (no (unknown) (unknown) may occur. (units (unk nown) date) Occasional unknown) wrong-word or 'sound-alike' substitutions may have (unknown) (no (unknown) (unknown) mecobalamin (units (un known) date) (vitamin B12) unknown) 1,000 mcg disintegrating tablet,sublingual 1,000 mcg (unknown) (no (unknown) (unknown) melatonin 10 mg (units (unknown) date) capsule 5 mg PO unknown) BEDTIME Sleep 08/24/19 [History Confirmed (unknown) (no (unknown) (unknown) nothing further (units (unknown) date) to offer the unknown) patient before I refer her to Neurology. (unknown) (no (unknown) (unknown) occupational (units (u nknown) date) status: employed unknown) (unknown) (no (unknown) (unknown) occurred due to (units (unknown) date) the inherent unknown) limitations of voice recognition software. Please (unknown) (no (unknown) (unknown) or over exertion. (units (unknown) date) No change in unknown) footwear (wears open sandals all of the time). (unknown) (no (unknown) (unknown) packets 05/31/21 (units (unknown) date) [Rx Confirmed unknown) 10/03/21] (unknown) (no (unknown) (unknown) pantoprazole 20 (units (unknown) date) mg tablet,delayed unknown) release 20 mg PO DAILY 05/10/19 [History (unknown) (no (unknown) (unknown) polyethylene (units (u nknown) date) glycol 3350 17 unknown) gram oral powder packet (Miralax) 17 gram PO DAILY (unknown) (no (unknown) (unknown) pre- DM labs (units (u nknown) date) unknown) (unknown) (no (unknown) (unknown) prednisone 10 mg (units (unknown) date) tablet 5 mg PO unknown) DAILY 03/06/21 [History Confirmed 10/03/21] (unknown) (no (unknown) (unknown) read the note (units ( unknown) date) carefully and unknown) recognize, using context, where these substitutions (unknown) (no (unknown) (unknown) readings at home. (units (unknown) date) Weight is up about unknown) 30 lb from 2019. No polyuria, polydipsia, (unknown) (no (unknown) (unknown) resolve. (units (unkno wn) date) unknown) (unknown) (no (unknown) (unknown) rheumatoid (units (unkn own) date) arthritis and unknown) fibromyalgia. Recommended follow-up with Rheumatology. (unknown) (no (unknown) (unknown) rizatriptan 10 mg (units (unknown) date) tablet (Maxalt) 10 unknown) mg PO Q2H PRN Migraine Headache #9 tabs (unknown) (no (unknown) (unknown) rt foot on top it (units (unknown) date) hurts not sure if unknown) its broken but no known injury (unknown) (no (unknown) (unknown) sentences and no (units (unknown) date) audible wheezes unknown) (unknown) (no (unknown) (unknown) software. (units (unkn own) date) Although every unknown) effort is made to edit content, wink cutter operator errors (unknown) (no (unknown) (unknown) steroids and anti (units (unknown) date) inflammatories is unknown) only modestly helpful. Patient declines (unknown) (no (unknown) (unknown) sublingual DAILY (units (unknown) date) 05/10/19 [History unknown) Confirmed 10/03/21] (unknown) (no (unknown) (unknown) substance use (units ( unknown) date) type: does not use unknown) (unknown) (no (unknown) (unknown) tab PO BEDTIME (units (unknown) date) PRN Sleep 11/17/17 unknown) [History Confirmed 10/03/21] (unknown) (no (unknown) (unknown) td- ? (units (unkno wn) date) unknown) (unknown) (no (unknown) (unknown) that she does not (units (unknown) date) have ongoing unknown) diabetes. However, she does have multiple risk (unknown) (no (unknown) (unknown) vision changes, (units (unknown) date) foot wounds, unknown) dizziness, diaphoresis, palpitations, or ALOC. Result panel 6 (unknown) (no (unknown) (unknown) (no value) (units (unk nown) date) unknown) (unknown) (no (unknown) (unknown) (Severe, (units (unkno wn) date) Verified 10/03/21 unknown) 11:38) (unknown) (no (unknown) (unknown) [id number] (units (unkno wn) date) unknown) (unknown) (no (unknown) (unknown) 11/27/21 (units (unkno wn) date) unknown) (unknown) (no (unknown) (unknown) Age/Sex: 56 / F (units (unknown) date) Date of Service: unknown) (unknown) (no (unknown) (unknown) Allergies (units (unkn own) date) unknown) (unknown) (no (unknown) (unknown) [place], [place] (units ( unknown) date) [id number] unknown) (unknown) (no (unknown) (unknown) Arthritis (units (unkn own) date) unknown) (unknown) (no (unknown) (unknown) Asthma (units (unkno wn) date) unknown) (unknown) (no (unknown) (unknown) Attending Dr: (units ( unknown) date) Rocco Pyle MD unknown) (unknown) (no (unknown) (unknown) Bruises easily (units (unknown) date) unknown) (unknown) (no (unknown) (unknown) Constipation (units (u nknown) date) unknown) (unknown) (no (unknown) (unknown) : 1965 (units (unknown) date) Acct:[id number] unknown) (unknown) (no (unknown) (unknown) Dept at (units (unkno wn) date) . unknown) (unknown) (no (unknown) (unknown) Documented By: (units (unknown) date) Rocco Pyle MD unknown) 12/04/21 0747 (unknown) (no (unknown) (unknown) Draft (units (unkno wn) date) unknown) (unknown) (no (unknown) (unknown) Family History (units (unknown) date) (Reviewed unknown) 09/12/21 @ 14:01 by Milka Viramontes PA-C) (unknown) (no (unknown) (unknown) Father Heart (units (u nknown) date) disease unknown) (unknown) (no (unknown) (unknown) Fibromyalgia (units (u nknown) date) unknown) (unknown) (no (unknown) (unknown) [facility] ([facility] ([facility] unknown) (unknown) (no (unknown) (unknown) Former smoker (units ( unknown) date) unknown) (unknown) (no (unknown) (unknown) Gastroparesis (units ( unknown) date) unknown) (unknown) (no (unknown) (unknown) Grandfather (units (un known) date) Heart disease unknown) (unknown) (no (unknown) (unknown) Grandfather (units (un known) date) Stomach cancer unknown) (unknown) (no (unknown) (unknown) Grandmother (units (un known) date) Cancer unknown) (unknown) (no (unknown) (unknown) Greater (units (unkno wn) date) trochanteric unknown) bursitis of right hip (unknown) (no (unknown) (unknown) HIVES (units (unkno wn) date) unknown) (unknown) (no (unknown) (unknown) Heart murmur (units (u nknown) date) unknown) (unknown) (no (unknown) (unknown) History of foot (units (unknown) date) surgery (08/2015) unknown) (unknown) (no (unknown) (unknown) History of (units (unk nown) date) pneumonia unknown) (unknown) (no (unknown) (unknown) History of third (units (unknown) date) molar tooth unknown) extraction (1984) (unknown) (no (unknown) (unknown) History of (units (unk nown) date) thyroidectomy unknown) (07/11/14) (unknown) (no (unknown) (unknown) Intake Note: (units (u nknown) date) unknown) (unknown) (no (unknown) (unknown) Intake (units (unkno wn) date) unknown) (unknown) (no (unknown) (unknown) Internal (units (unkno wn) date) Medicine Office unknown) Visit (unknown) (no (unknown) (unknown) Last Menstural (units (unknown) date) Cycle + Details unknown) (unknown) (no (unknown) (unknown) Loc: [facility] (units (unkno wn) date) unknown) (unknown) (no (unknown) (unknown) Low blood sugar (units (unknown) date) unknown) (unknown) (no (unknown) (unknown) 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) () (unknown) (no (unknown) (unknown) Medical History (units (unknown) date) (Reviewed unknown) 09/12/21 @ 14:01 by Milka Viramontes PA-C) (unknown) (no (unknown) (unknown) Menstrual (units (unkn own) date) migraine, not unknown) intractable, without status migrainosus (unknown) (no (unknown) (unknown) Migraines (units (unkn own) date) unknown) (unknown) (no (unknown) (unknown) Mother Stroke (units ( unknown) date) unknown) (unknown) (no (unknown) (unknown) NAUSEA (units (unkno wn) date) unknown) (unknown) (no (unknown) (unknown) Osteoarthritis (units (unknown) date) unknown) (unknown) (no (unknown) (unknown) Other Menstrual (units (unknown) date) Period: unknown) Postmenopausal (unknown) (no (unknown) (unknown) PFSH (units (unkno wn) date) unknown) (unknown) (no (unknown) (unknown) Patient: (units (unkno wn) date) Cassia Brittonberly Ronnell unknown) MR#: [id number] (unknown) (no (unknown) (unknown) Piriformis (units (unk nown) date) syndrome unknown) (unknown) (no (unknown) (unknown) Reason For Visit (units (unknown) date) unknown) (unknown) (no (unknown) (unknown) SENSITIVE TO (units (u nknown) date) NARCOTICS Allergy unknown) (Severe, Uncoded 10/03/21 11:38) (unknown) (no (unknown) (unknown) Sacral (units (unkno wn) date) dysfunction unknown) (unknown) (no (unknown) (unknown) Signed By: (units (unk nown) date) unknown) (unknown) (no (unknown) (unknown) Smoking Status: (units (unknown) date) Former smoker unknown) (unknown) (no (unknown) (unknown) Social History (units (unknown) date) unknown) (unknown) (no (unknown) (unknown) Status post (units (un known) date) endometrial unknown) ablation (07/11/14) (unknown) (no (unknown) (unknown) Status post (units (un known) date) laparoscopy unknown) (1982) (unknown) (no (unknown) (unknown) Status post (units (un known) date) laparoscopy unknown) (2001) (unknown) (no (unknown) (unknown) Sulfa (units (unkno wn) date) (Sulfonamide unknown) Antibiotics) [SULFA (SULFONAMIDE ANTIBIOTICS)] Allergy (unknown) (no (unknown) (unknown) Surgical History (units (unknown) date) (Reviewed unknown) 09/12/21 @ 14:01 by Milka Viramontes PA-C) (unknown) (no (unknown) (unknown) Tear of (units (unkno wn) date) acetabular labrum unknown) (unknown) (no (unknown) (unknown) This note may (units ( unknown) date) have been all or unknown) partially generated using voice recognition (unknown) (no (unknown) (unknown) Tobacco + (units (unkn own) date) Substance Use unknown) (unknown) (no (unknown) (unknown) Tobacco Status (units (unknown) date) unknown) (unknown) (no (unknown) (unknown) Visit Reasons: (units (unknown) date) another blood unknown) shot eye, and over heating 08 (unknown) (no (unknown) (unknown) alcohol intake: (units (unknown) date) current unknown) (unknown) (no (unknown) (unknown) another blood (units ( unknown) date) shot eye unknown) (unknown) (no (unknown) (unknown) codeine (units (unkno wn) date) [CODEINE] Allergy unknown) (Mild, Verified 10/03/21 11:38) (unknown) (no (unknown) (unknown) cscope (units (unkno wn) date) unknown) (unknown) (no (unknown) (unknown) have occurred. (units (unknown) date) If there are any unknown) questions, please contact the Medical Records (unknown) (no (unknown) (unknown) household (units (unkn own) date) members: none unknown) (unknown) (no (unknown) (unknown) mammo (units (unkno wn) date) unknown) (unknown) (no (unknown) (unknown) marital status: (units (unknown) date) unknown unknown) (unknown) (no (unknown) (unknown) may occur. (units (unk nown) date) Occasional unknown) wrong-word or 'sound-alike' substitutions may have (unknown) (no (unknown) (unknown) occupational (units (u nknown) date) status: employed unknown) (unknown) (no (unknown) (unknown) occurred due to (units (unknown) date) the inherent unknown) limitations of voice recognition software. Please (unknown) (no (unknown) (unknown) over heating (units (u nknown) date) unknown) (unknown) (no (unknown) (unknown) read the note (units ( unknown) date) carefully and unknown) recognize, using context, where these substitutions (unknown) (no (unknown) (unknown) ref Podiatry (units (u nknown) date) unknown) (unknown) (no (unknown) (unknown) shingles (units (unkno wn) date) unknown) (unknown) (no (unknown) (unknown) software. (units (unkn own) date) Although every unknown) effort is made to edit content, wink cutter operator errors (unknown) (no (unknown) (unknown) substance use (units ( unknown) date) type: does not unknown) use (unknown) (no (unknown) (unknown) td (units (unkno wn) date) unknown) Result panel 7 (unknown) (no (unknown) (unknown) (no value) (units (unk nown) date) unknown) (unknown) (no (unknown) (unknown) (Severe, (units (unkno wn) date) Verified 10/03/21 unknown) 11:38) (unknown) (no (unknown) (unknown) [id number] (units (unkno wn) date) unknown) (unknown) (no (unknown) (unknown) 12/04/21 (units (unkno wn) date) unknown) (unknown) (no (unknown) (unknown) Accompanied by: (units (unknown) date) Self / Same As unknown) Patient (unknown) (no (unknown) (unknown) Age/Sex: 56 / F (units (unknown) date) Date of Service: unknown) (unknown) (no (unknown) (unknown) Allergies (units (unkn own) date) unknown) (unknown) (no (unknown) (unknown) [place], [place] (units ( unknown) date) [id number] unknown) (unknown) (no (unknown) (unknown) Arthritis (units (unkn own) date) unknown) (unknown) (no (unknown) (unknown) Asthma (units (unkno wn) date) unknown) (unknown) (no (unknown) (unknown) Attending Dr: (units ( unknown) date) Rocco Pyle MD unknown) (unknown) (no (unknown) (unknown) Bruises easily (units (unknown) date) unknown) (unknown) (no (unknown) (unknown) Constipation (units (u nknown) date) unknown) (unknown) (no (unknown) (unknown) : 1965 (units (unknown) date) Acct:[id number] unknown) (unknown) (no (unknown) (unknown) Dept at (units (unkno wn) date) . unknown) (unknown) (no (unknown) (unknown) Documented By: (units (unknown) date) Rocco Pyle MD unknown) 12/04/21 0747 (unknown) (no (unknown) (unknown) Draft (units (unkno wn) date) unknown) (unknown) (no (unknown) (unknown) Family History (units (unknown) date) (Reviewed unknown) 09/12/21 @ 14:01 by Milka Viramontes PA-C) (unknown) (no (unknown) (unknown) Father Heart (units (u nknown) date) disease unknown) (unknown) (no (unknown) (unknown) Fibromyalgia (units (u nknown) date) unknown) (unknown) (no (unknown) (unknown) [facility] ([facility] ([facility] date[facility] unknown) (unknown) (no (unknown) (unknown) Former smoker (units ( unknown) date) unknown) (unknown) (no (unknown) (unknown) Gastroparesis (units ( unknown) date) unknown) (unknown) (no (unknown) (unknown) Grandfather (units (un known) date) Heart disease unknown) (unknown) (no (unknown) (unknown) Grandfather (units (un known) date) Stomach cancer unknown) (unknown) (no (unknown) (unknown) Grandmother (units (un known) date) Cancer unknown) (unknown) (no (unknown) (unknown) Greater (units (unkno wn) date) trochanteric unknown) bursitis of right hip (unknown) (no (unknown) (unknown) HIVES (units (unkno wn) date) unknown) (unknown) (no (unknown) (unknown) Heart murmur (units (u nknown) date) unknown) (unknown) (no (unknown) (unknown) History of foot (units (unknown) date) surgery (08/2015) unknown) (unknown) (no (unknown) (unknown) History of (units (unk nown) date) pneumonia unknown) (unknown) (no (unknown) (unknown) History of third (units (unknown) date) molar tooth unknown) extraction (1984) (unknown) (no (unknown) (unknown) History of (units (unk nown) date) thyroidectomy unknown) (07/11/14) (unknown) (no (unknown) (unknown) Intake Note: (units (u nknown) date) unknown) (unknown) (no (unknown) (unknown) Intake performed (units (unknown) date) by: Marleen Tamayo unknown) (unknown) (no (unknown) (unknown) Intake (units (unkno wn) date) unknown) (unknown) (no (unknown) (unknown) Intake- Clincial (units (unknown) date) Staff unknown) (unknown) (no (unknown) (unknown) Internal (units (unkno wn) date) Medicine Office unknown) Visit (unknown) (no (unknown) (unknown) Last Menstural (units (unknown) date) Cycle + Details unknown) (unknown) (no (unknown) (unknown) Loc: [facility] (units (unkno wn) date) unknown) (unknown) (no (unknown) (unknown) Low blood sugar (units (unknown) date) unknown) (unknown) (no (unknown) (unknown) 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) (unknown) (no (unknown) (unknown) Medical History (units (unknown) date) (Reviewed unknown) 09/12/21 @ 14:01 by Milka Viramontes PA-C) (unknown) (no (unknown) (unknown) Menstrual (units (unkn own) date) migraine, not unknown) intractable, without status migrainosus (unknown) (no (unknown) (unknown) Migraines (units (unkn own) date) unknown) (unknown) (no (unknown) (unknown) Mother Stroke (units ( unknown) date) unknown) (unknown) (no (unknown) (unknown) NAUSEA (units (unkno wn) date) unknown) (unknown) (no (unknown) (unknown) Osteoarthritis (units (unknown) date) unknown) (unknown) (no (unknown) (unknown) Other Menstrual (units (unknown) date) Period: unknown) Postmenopausal (unknown) (no (unknown) (unknown) PFSH (units (unkno wn) date) unknown) (unknown) (no (unknown) (unknown) Patient: (units (unkno wn) date) Yolanda Britton unknown) MR#: [id number] (unknown) (no (unknown) (unknown) Piriformis (units (unk nown) date) syndrome unknown) (unknown) (no (unknown) (unknown) Reason For Visit (units (unknown) date) unknown) (unknown) (no (unknown) (unknown) SENSITIVE TO (units (u nknown) date) NARCOTICS Allergy unknown) (Severe, Uncoded 10/03/21 11:38) (unknown) (no (unknown) (unknown) Sacral (units (unkno wn) date) dysfunction unknown) (unknown) (no (unknown) (unknown) Signed By: (units (unk nown) date) unknown) (unknown) (no (unknown) (unknown) Smoking Status: (units (unknown) date) Former smoker unknown) (unknown) (no (unknown) (unknown) Social History (units (unknown) date) unknown) (unknown) (no (unknown) (unknown) Status post (units (un known) date) endometrial unknown) ablation (07/11/14) (unknown) (no (unknown) (unknown) Status post (units (un known) date) laparoscopy unknown) (1982) (unknown) (no (unknown) (unknown) Status post (units (un known) date) laparoscopy unknown) (2001) (unknown) (no (unknown) (unknown) Sulfa (units (unkno wn) date) (Sulfonamide unknown) Antibiotics) [SULFA (SULFONAMIDE ANTIBIOTICS)] Allergy (unknown) (no (unknown) (unknown) Surgical History (units (unknown) date) (Reviewed unknown) 09/12/21 @ 14:01 by Milka Viramontes PA-C) (unknown) (no (unknown) (unknown) Tear of (units (unkno wn) date) acetabular labrum unknown) (unknown) (no (unknown) (unknown) This note may (units ( unknown) date) have been all or unknown) partially generated using voice recognition (unknown) (no (unknown) (unknown) Tobacco + (units (unkn own) date) Substance Use unknown) (unknown) (no (unknown) (unknown) Tobacco Status (units (unknown) date) unknown) (unknown) (no (unknown) (unknown) Visit Reasons: (units (unknown) date) another blood unknown) shot eye, and over heating 08 (unknown) (no (unknown) (unknown) alcohol intake: (units (unknown) date) current unknown) (unknown) (no (unknown) (unknown) another blood (units ( unknown) date) shot eye - this unknown) 5th time in 4moths now today its better and she (unknown) (no (unknown) (unknown) codeine (units (unkno wn) date) [CODEINE] Allergy unknown) (Mild, Verified 10/03/21 11:38) (unknown) (no (unknown) (unknown) cscope- she will (units (unknown) date) check with her GI unknown) dr (unknown) (no (unknown) (unknown) has an appt with (units (unknown) date) eye dr with in 2 unknown) weeks lt eye (unknown) (no (unknown) (unknown) have occurred. (units (unknown) date) If there are any unknown) questions, please contact the Medical Records (unknown) (no (unknown) (unknown) household (units (unkn own) date) members: none unknown) (unknown) (no (unknown) (unknown) mammo (units (unkno wn) date) unknown) (unknown) (no (unknown) (unknown) marital status: (units (unknown) date) unknown unknown) (unknown) (no (unknown) (unknown) may occur. (units (unk nown) date) Occasional unknown) wrong-word or 'sound-alike' substitutions may have (unknown) (no (unknown) (unknown) occupational (units (u nknown) date) status: employed unknown) (unknown) (no (unknown) (unknown) occurred due to (units (unknown) date) the inherent unknown) limitations of voice recognition software. Please (unknown) (no (unknown) (unknown) over heating- (units ( unknown) date) this is not unknown) menopause or the heat, she could have fans on her and (unknown) (no (unknown) (unknown) read the note (units ( unknown) date) carefully and unknown) recognize, using context, where these substitutions (unknown) (no (unknown) (unknown) ref Podiatry (units (u nknown) date) unknown) (unknown) (no (unknown) (unknown) she is still (units (u nknown) date) sweating mostly unknown) on face and head, face turns very red no nausea (unknown) (no (unknown) (unknown) shingles (units (unkno wn) date) unknown) (unknown) (no (unknown) (unknown) software. (units (unkn own) date) Although every unknown) effort is made to edit content, wink cutter operator errors (unknown) (no (unknown) (unknown) substance use (units ( unknown) date) type: does not unknown) use (unknown) (no (unknown) (unknown) td (units (unkno wn) date) unknown) (unknown) (no (unknown) (unknown) vomiting, or (units (u nknown) date) dizziness unknown) Result panel 8 (unknown) (no (unknown) (unknown) (no value) (units (unk nown) date) unknown) (unknown) (no (unknown) (unknown) (Severe, Verified (units (unknown) date) 12/04/21 16:07) unknown) (unknown) (no (unknown) (unknown) [id number] (units (unkno wn) date) unknown) (unknown) (no (unknown) (unknown) 11/17/17 [History (units (unknown) date) Confirmed unknown) 12/04/21] (unknown) (no (unknown) (unknown) 11/27/20 [History (units (unknown) date) Confirmed unknown) 12/04/21] (unknown) (no (unknown) (unknown) 12/04/21 (units (unkno wn) date) unknown) (unknown) (no (unknown) (unknown) 12/04/21] (units (unkn own) date) unknown) (unknown) (no (unknown) (unknown) 12/06/20 [Rx (units (u nknown) date) Confirmed unknown) 12/04/21] (unknown) (no (unknown) (unknown) 16:08 (units (unkno wn) date) unknown) (unknown) (no (unknown) (unknown) Accompanied by: (units (unknown) date) Self / Same As unknown) Patient (unknown) (no (unknown) (unknown) Age/Sex: 56 / F (units (unknown) date) Date of Service: unknown) (unknown) (no (unknown) (unknown) Allergies (units (unkn own) date) unknown) (unknown) (no (unknown) (unknown) [place] (units ( unknown) date) [id number] unknown) (unknown) (no (unknown) (unknown) Arthritis (units (unkn own) date) unknown) (unknown) (no (unknown) (unknown) Asthma (units (unkno wn) date) unknown) (unknown) (no (unknown) (unknown) Attending Dr: (units ( unknown) date) Rocco Pyle MD unknown) (unknown) (no (unknown) (unknown) BMI 35.4 (units (unkno wn) date) unknown) (unknown) (no (unknown) (unknown) BP 132/89 (units (unkn own) date) unknown) (unknown) (no (unknown) (unknown) Blood Pressure (units (unknown) date) Location Lt unknown) brachial (unknown) (no (unknown) (unknown) Bruises easily (units (unknown) date) unknown) (unknown) (no (unknown) (unknown) Confirmed (units (unkn own) date) 12/04/21] unknown) (unknown) (no (unknown) (unknown) Constipation (units (u nknown) date) unknown) (unknown) (no (unknown) (unknown) : 1965 (units (unknown) date) Acct:[id number] unknown) (unknown) (no (unknown) (unknown) Dept at (units (unkno wn) date) . unknown) (unknown) (no (unknown) (unknown) Documented By: (units (unknown) date) Rocco Pyle MD unknown) 12/04/21 0747 (unknown) (no (unknown) (unknown) Draft (units (unkno wn) date) unknown) (unknown) (no (unknown) (unknown) Family History (units (unknown) date) (Reviewed 09/12/21 unknown) @ 14:01 by Milka Viramontes PA-C) (unknown) (no (unknown) (unknown) Father Heart (units (u nknown) date) disease unknown) (unknown) (no (unknown) (unknown) Fibromyalgia (units (u nknown) date) unknown) (unknown) (no (unknown) (unknown) [facility] (units (unknown[facility] date) [facility] unknown) (unknown) (no (unknown) (unknown) Former smoker (units ( unknown) date) unknown) (unknown) (no (unknown) (unknown) Gastroparesis (units ( unknown) date) unknown) (unknown) (no (unknown) (unknown) Grandfather Heart (units (unknown) date) disease unknown) (unknown) (no (unknown) (unknown) Grandfather (units (un known) date) Stomach cancer unknown) (unknown) (no (unknown) (unknown) Grandmother (units (un known) date) Cancer unknown) (unknown) (no (unknown) (unknown) Greater (units (unkno wn) date) trochanteric unknown) bursitis of right hip (unknown) (no (unknown) (unknown) HIVES (units (unkno wn) date) unknown) (unknown) (no (unknown) (unknown) Health Management (units (unknown) date) reviewed with unknown) patient: Yes (unknown) (no (unknown) (unknown) Health Management (units (unknown) date) unknown) (unknown) (no (unknown) (unknown) Heart murmur (units (u nknown) date) unknown) (unknown) (no (unknown) (unknown) Height 5 ft 6.5 (units (unknown) date) in unknown) (unknown) (no (unknown) (unknown) History of foot (units (unknown) date) surgery (08/2015) unknown) (unknown) (no (unknown) (unknown) History of (units (unk nown) date) pneumonia unknown) (unknown) (no (unknown) (unknown) History of third (units (unknown) date) molar tooth unknown) extraction (1984) (unknown) (no (unknown) (unknown) History of (units (unk nown) date) thyroidectomy unknown) (07/11/14) (unknown) (no (unknown) (unknown) Instructions (units (u nknown) date) .Route .COMPLEX unknown) #112 tabs 11/12/21 [Rx Confirmed 12/04/21] (unknown) (no (unknown) (unknown) Intake Note: (units (u nknown) date) unknown) (unknown) (no (unknown) (unknown) Intake performed (units (unknown) date) by: Marleen Tamayo unknown) (unknown) (no (unknown) (unknown) Intake (units (unkno wn) date) unknown) (unknown) (no (unknown) (unknown) Intake- Clincial (units (unknown) date) Staff unknown) (unknown) (no (unknown) (unknown) Internal Medicine (units (unknown) date) Office Visit unknown) (unknown) (no (unknown) (unknown) Last Menstural (units (unknown) date) Cycle + Details unknown) (unknown) (no (unknown) (unknown) Loc: [facility] (units (unkno wn) date) unknown) (unknown) (no (unknown) (unknown) Low blood sugar (units (unknown) date) unknown) (unknown) (no (unknown) (unknown) 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) () (unknown) (no (unknown) (unknown) Medical History (units (unknown) date) (Reviewed 09/12/21 unknown) @ 14:01 by Milka Viramontes PA-C) (unknown) (no (unknown) (unknown) Medications (units (un known) date) unknown) (unknown) (no (unknown) (unknown) Menstrual (units (unkn own) date) migraine, not unknown) intractable, without status migrainosus (unknown) (no (unknown) (unknown) Migraines (units (unkn own) date) unknown) (unknown) (no (unknown) (unknown) Mother Stroke (units ( unknown) date) unknown) (unknown) (no (unknown) (unknown) NAUSEA (units (unkno wn) date) unknown) (unknown) (no (unknown) (unknown) Osteoarthritis (units (unknown) date) unknown) (unknown) (no (unknown) (unknown) Other Menstrual (units (unknown) date) Period: unknown) Postmenopausal (unknown) (no (unknown) (unknown) Oxygen Delivery (units (unknown) date) Method room air unknown) (unknown) (no (unknown) (unknown) PFSH (units (unkno wn) date) unknown) (unknown) (no (unknown) (unknown) PRN 08/24/19 (units (u nknown) date) [History Confirmed unknown) 12/04/21] (unknown) (no (unknown) (unknown) Patient: (units (unkno wn) date) Yolanda Britton unknown) MR#: [id number] (unknown) (no (unknown) (unknown) Piriformis (units (unk nown) date) syndrome unknown) (unknown) (no (unknown) (unknown) Position Sitting (units (unknown) date) unknown) (unknown) (no (unknown) (unknown) Pulse 87 (units (unkno wn) date) unknown) (unknown) (no (unknown) (unknown) Pulse Oximetry (units (unknown) date) (%) 97 unknown) (unknown) (no (unknown) (unknown) Pulse Source (units (u nknown) date) Monitor unknown) (unknown) (no (unknown) (unknown) Reason For Visit (units (unknown) date) unknown) (unknown) (no (unknown) (unknown) SENSITIVE TO (units (u nknown) date) NARCOTICS Allergy unknown) (Severe, Uncoded 12/04/21 16:07) (unknown) (no (unknown) (unknown) SUBCUT QMONTH (units ( unknown) date) 06/13/21 [History unknown) Confirmed 12/04/21] (unknown) (no (unknown) (unknown) Sacral (units (unkno wn) date) dysfunction unknown) (unknown) (no (unknown) (unknown) Signed By: (units (unk nown) date) unknown) (unknown) (no (unknown) (unknown) Smoking Status: (units (unknown) date) Former smoker unknown) (unknown) (no (unknown) (unknown) Social History (units (unknown) date) unknown) (unknown) (no (unknown) (unknown) Status post (units (un known) date) endometrial unknown) ablation (07/11/14) (unknown) (no (unknown) (unknown) Status post (units (un known) date) laparoscopy (1982) unknown) (unknown) (no (unknown) (unknown) Status post (units (un known) date) laparoscopy (2001) unknown) (unknown) (no (unknown) (unknown) Sulfa (units (unkno wn) date) (Sulfonamide unknown) Antibiotics) [SULFA (SULFONAMIDE ANTIBIOTICS)] Allergy (unknown) (no (unknown) (unknown) Surgical History (units (unknown) date) (Reviewed 09/12/21 unknown) @ 14:01 by Milka Viramontes PA-C) (unknown) (no (unknown) (unknown) Tear of (units (unkno wn) date) acetabular labrum unknown) (unknown) (no (unknown) (unknown) This note may (units ( unknown) date) have been all or unknown) partially generated using voice recognition (unknown) (no (unknown) (unknown) Tobacco + (units (unkn own) date) Substance Use unknown) (unknown) (no (unknown) (unknown) Tobacco Status (units (unknown) date) unknown) (unknown) (no (unknown) (unknown) Visit Reasons: (units (unknown) date) another blood shot unknown) eye, and over heating 08 (unknown) (no (unknown) (unknown) Vitals (units (unkno wn) date) unknown) (unknown) (no (unknown) (unknown) Weight 223 lb (units ( unknown) date) unknown) (unknown) (no (unknown) (unknown) alcohol intake: (units (unknown) date) current unknown) (unknown) (no (unknown) (unknown) another blood (units ( unknown) date) shot eye - this unknown) 5th time in 4moths now today its better and she (unknown) (no (unknown) (unknown) cholecalciferol (units (unknown) date) (vitamin D3) 25 unknown) mcg (1,000 unit) capsule 1,000 unit PO DAILY (unknown) (no (unknown) (unknown) codeine [CODEINE] (units (unknown) date) Allergy (Mild, unknown) Verified 12/04/21 16:07) (unknown) (no (unknown) (unknown) cscope- she will (units (unknown) date) check with her GI unknown) dr (unknown) (no (unknown) (unknown) cyclobenzaprine 10 (units (unknown) date) mg tablet 10 mg PO unknown) TID PRN muscle spasm #21 tabs 10/25/21 [Rx (unknown) (no (unknown) (unknown) diphenhydramine (units (unknown) date) 25 unknown) mg-acetaminophen 500 mg tablet (Tylenol PM Extra Strength) 1 (unknown) (no (unknown) (unknown) diphenhydramine-a (units (unknown) date) cetaminophen unknown) [Tylenol PM] PO BEDTIME 03/09/19 [History (unknown) (no (unknown) (unknown) doxylamine (units (unk nown) date) succinate 25 mg unknown) tablet (Unisom (doxylamine)) 25 mg PO BEDTIME PRN (unknown) (no (unknown) (unknown) eye support PO (units (unknown) date) 11/27/20 [History unknown) Confirmed 12/04/21] (unknown) (no (unknown) (unknown) fluconazole 150 (units (unknown) date) mg tablet 150 mg unknown) PO Q3D 2 doses #2 tabs 09/18/21 [Rx Confirmed (unknown) (no (unknown) (unknown) galcanezumab-gnlm (units (unknown) date) 120 mg/mL unknown) subcutaneous pen injector (Emgality Pen) 120 mg (unknown) (no (unknown) (unknown) has an appt with (units (unknown) date) eye dr with in 2 unknown) weeks lt eye (unknown) (no (unknown) (unknown) have occurred. If (units (unknown) date) there are any unknown) questions, please contact the Medical Records (unknown) (no (unknown) (unknown) household (units (unkn own) date) members: none unknown) (unknown) (no (unknown) (unknown) lactobacillus (units ( unknown) date) combination no.8 unknown) [Adult Probiotic] PO DAILY 05/10/19 [History (unknown) (no (unknown) (unknown) levonorgestrel-et (units (unknown) date) hinyl estradiol unknown) 0.1 mg-20 mcg tablet (Falmina (28)) See Rx (unknown) (no (unknown) (unknown) levothyroxine 100 (units (unknown) date) mcg tablet 100 mcg unknown) PO DAILY 03/06/21 [History Confirmed (unknown) (no (unknown) (unknown) mammo - will (units (u nknown) date) order unknown) (unknown) (no (unknown) (unknown) marital status: (units (unknown) date) unknown unknown) (unknown) (no (unknown) (unknown) may occur. (units (unk nown) date) Occasional unknown) wrong-word or 'sound-alike' substitutions may have (unknown) (no (unknown) (unknown) mecobalamin (units (un known) date) (vitamin B12) unknown) 1,000 mcg disintegrating tablet,sublingual 1,000 mcg (unknown) (no (unknown) (unknown) melatonin 10 mg (units (unknown) date) capsule 5 mg PO unknown) BEDTIME Sleep 08/24/19 [History Confirmed (unknown) (no (unknown) (unknown) occupational (units (u nknown) date) status: employed unknown) (unknown) (no (unknown) (unknown) occurred due to (units (unknown) date) the inherent unknown) limitations of voice recognition software. Please (unknown) (no (unknown) (unknown) over heating- (units ( unknown) date) this is not unknown) menopause or the heat, she could have fans on her and (unknown) (no (unknown) (unknown) pantoprazole 20 (units (unknown) date) mg tablet,delayed unknown) release 20 mg PO DAILY 05/10/19 [History (unknown) (no (unknown) (unknown) polyethylene (units (u nknown) date) glycol 3350 17 unknown) gram oral powder packet (Miralax) 17 gram PO DAILY (unknown) (no (unknown) (unknown) prednisone 10 mg (units (unknown) date) tablet 5 mg PO unknown) DAILY 03/06/21 [History Confirmed 12/04/21] (unknown) (no (unknown) (unknown) read the note (units ( unknown) date) carefully and unknown) recognize, using context, where these substitutions (unknown) (no (unknown) (unknown) ref Podiatry- snw (units (unknown) date) told her they dont unknown) take her insurance. will need to do new (unknown) (no (unknown) (unknown) referral to mt (units (unknown) date) leslye. unknown) (unknown) (no (unknown) (unknown) rizatriptan 10 mg (units (unknown) date) tablet (Maxalt) 10 unknown) mg PO Q2H PRN Migraine Headache #9 tabs (unknown) (no (unknown) (unknown) she is still (units (u nknown) date) sweating mostly on unknown) face and head, face turns very red no nausea (unknown) (no (unknown) (unknown) shingles- [facility] (units (unknown) date) [place] unknown) (unknown) (no (unknown) (unknown) software. (units (unkn own) date) Although every unknown) effort is made to edit content, wink cutter operator errors (unknown) (no (unknown) (unknown) sublingual DAILY (units (unknown) date) 05/10/19 [History unknown) Confirmed 12/04/21] (unknown) (no (unknown) (unknown) substance use (units ( unknown) date) type: does not use unknown) (unknown) (no (unknown) (unknown) tab PO BEDTIME (units (unknown) date) PRN Sleep 11/17/17 unknown) [History Confirmed 12/04/21] (unknown) (no (unknown) (unknown) td- at [facility] may be (units (unknown) date) utd unknown) (unknown) (no (unknown) (unknown) vomiting, or (units (u nknown) date) dizziness unknown) Result panel 9 (unknown) (no (unknown) (unknown) (no value) (units (unk nown) date) unknown) (unknown) (no (unknown) (unknown) (Severe, Verified (units (unknown) date) 12/04/21 16:07) unknown) (unknown) (no (unknown) (unknown) [id number] (units (unkno wn) date) unknown) (unknown) (no (unknown) (unknown) 11/17/17 [History (units (unknown) date) Confirmed unknown) 12/04/21] (unknown) (no (unknown) (unknown) 11/27/20 [History (units (unknown) date) Confirmed unknown) 12/04/21] (unknown) (no (unknown) (unknown) 12/04/21 (units (unkno wn) date) unknown) (unknown) (no (unknown) (unknown) 12/04/21] (units (unkn own) date) unknown) (unknown) (no (unknown) (unknown) 12/06/20 [Rx (units (u nknown) date) Confirmed unknown) 12/04/21] (unknown) (no (unknown) (unknown) 16:08 (units (unkno wn) date) unknown) (unknown) (no (unknown) (unknown) Accompanied by: (units (unknown) date) Self / Same As unknown) Patient (unknown) (no (unknown) (unknown) Age/Sex: 56 / F (units (unknown) date) Date of Service: unknown) (unknown) (no (unknown) (unknown) Allergies (units (unkn own) date) unknown) (unknown) (no (unknown) (unknown) [place], [place] (units ( unknown) date) [id number] unknown) (unknown) (no (unknown) (unknown) Arthritis (units (unkn own) date) unknown) (unknown) (no (unknown) (unknown) Assessment + Plan (units (unknown) date) unknown) (unknown) (no (unknown) (unknown) Asthma (units (unkno wn) date) unknown) (unknown) (no (unknown) (unknown) Attending Dr: (units ( unknown) date) Rocco Pyle MD unknown) (unknown) (no (unknown) (unknown) BMI 35.4 (units (unkno wn) date) unknown) (unknown) (no (unknown) (unknown) BP 132/89 (units (unkn own) date) unknown) (unknown) (no (unknown) (unknown) Blood Pressure (units (unknown) date) Location Lt unknown) brachial (unknown) (no (unknown) (unknown) Bruises easily (units (unknown) date) unknown) (unknown) (no (unknown) (unknown) Confirmed (units (unkn own) date) 12/04/21] unknown) (unknown) (no (unknown) (unknown) Constipation (units (u nknown) date) unknown) (unknown) (no (unknown) (unknown) : 1965 (units (unknown) date) Acct:[id number] unknown) (unknown) (no (unknown) (unknown) Dept at (units (unkno wn) date) . unknown) (unknown) (no (unknown) (unknown) Documented By: (units (unknown) date) Rocco Pyle MD unknown) 12/04/21 0747 (unknown) (no (unknown) (unknown) Draft (units (unkno wn) date) unknown) (unknown) (no (unknown) (unknown) Family History (units (unknown) date) (Reviewed 09/12/21 unknown) @ 14:01 by Milka Viramontes PA-C) (unknown) (no (unknown) (unknown) Father Heart (units (u nknown) date) disease unknown) (unknown) (no (unknown) (unknown) Fibromyalgia (units (u nknown) date) unknown) (unknown) (no (unknown) (unknown) [facility]) (unknown) (no (unknown) (unknown) Former smoker (units ( unknown) date) unknown) (unknown) (no (unknown) (unknown) Gastroparesis (units ( unknown) date) unknown) (unknown) (no (unknown) (unknown) Grandfather Heart (units (unknown) date) disease unknown) (unknown) (no (unknown) (unknown) Grandfather (units (un known) date) Stomach cancer unknown) (unknown) (no (unknown) (unknown) Grandmother (units (un known) date) Cancer unknown) (unknown) (no (unknown) (unknown) Greater (units (unkno wn) date) trochanteric unknown) bursitis of right hip (unknown) (no (unknown) (unknown) HIVES (units (unkno wn) date) unknown) (unknown) (no (unknown) (unknown) Health Management (units (unknown) date) reviewed with unknown) patient: Yes (unknown) (no (unknown) (unknown) Health Management (units (unknown) date) unknown) (unknown) (no (unknown) (unknown) Heart murmur (units (u nknown) date) unknown) (unknown) (no (unknown) (unknown) Height 5 ft 6.5 (units (unknown) date) in unknown) (unknown) (no (unknown) (unknown) History of foot (units (unknown) date) surgery (08/2015) unknown) (unknown) (no (unknown) (unknown) History of (units (unk nown) date) pneumonia unknown) (unknown) (no (unknown) (unknown) History of third (units (unknown) date) molar tooth unknown) extraction (1984) (unknown) (no (unknown) (unknown) History of (units (unk nown) date) thyroidectomy unknown) (07/11/14) (unknown) (no (unknown) (unknown) Instructions (units (u nknown) date) .Route .COMPLEX unknown) #112 tabs 11/12/21 [Rx Confirmed 12/04/21] (unknown) (no (unknown) (unknown) Intake Note: (units (u nknown) date) unknown) (unknown) (no (unknown) (unknown) Intake performed (units (unknown) date) by: Marleen Tamayo unknown) (unknown) (no (unknown) (unknown) Intake (units (unkno wn) date) unknown) (unknown) (no (unknown) (unknown) Intake- Clincial (units (unknown) date) Staff unknown) (unknown) (no (unknown) (unknown) Internal Medicine (units (unknown) date) Office Visit unknown) (unknown) (no (unknown) (unknown) Last Menstural (units (unknown) date) Cycle + Details unknown) (unknown) (no (unknown) (unknown) Loc: [facility] (units (unkno wn) date) unknown) (unknown) (no (unknown) (unknown) Low blood sugar (units (unknown) date) unknown) (unknown) (no (unknown) (unknown) MM screening (units (u nknown) date) mammo BI 1 Month unknown) Z12.31 - Encounter for screening mammogram for (unknown) (no (unknown) (unknown) 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) (unknown) (no (unknown) (unknown) Medical History (units (unknown) date) (Reviewed 09/12/21 unknown) @ 14:01 by Milka Viramontes PA-C) (unknown) (no (unknown) (unknown) Medications (units (un known) date) unknown) (unknown) (no (unknown) (unknown) Menstrual (units (unkn own) date) migraine, not unknown) intractable, without status migrainosus (unknown) (no (unknown) (unknown) Migraines (units (unkn own) date) unknown) (unknown) (no (unknown) (unknown) Mother Stroke (units ( unknown) date) unknown) (unknown) (no (unknown) (unknown) NAUSEA (units (unkno wn) date) unknown) (unknown) (no (unknown) (unknown) Orders (units (unkno wn) date) unknown) (unknown) (no (unknown) (unknown) Orders: (units (unkno wn) date) unknown) (unknown) (no (unknown) (unknown) Osteoarthritis (units (unknown) date) unknown) (unknown) (no (unknown) (unknown) Other Menstrual (units (unknown) date) Period: unknown) Postmenopausal (unknown) (no (unknown) (unknown) Oxygen Delivery (units (unknown) date) Method room air unknown) (unknown) (no (unknown) (unknown) PFSH (units (unkno wn) date) unknown) (unknown) (no (unknown) (unknown) PRN 08/24/19 (units (u nknown) date) [History Confirmed unknown) 12/04/21] (unknown) (no (unknown) (unknown) Patient: (units (unkno wn) date) Yolanda Britton unknown) MR#: [id number] (unknown) (no (unknown) (unknown) Piriformis (units (unk nown) date) syndrome unknown) (unknown) (no (unknown) (unknown) Position Sitting (units (unknown) date) unknown) (unknown) (no (unknown) (unknown) Pulse 87 (units (unkno wn) date) unknown) (unknown) (no (unknown) (unknown) Pulse Oximetry (units (unknown) date) (%) 97 unknown) (unknown) (no (unknown) (unknown) Pulse Source (units (u nknown) date) Monitor unknown) (unknown) (no (unknown) (unknown) Reason For Visit (units (unknown) date) unknown) (unknown) (no (unknown) (unknown) SENSITIVE TO (units (u nknown) date) NARCOTICS Allergy unknown) (Severe, Uncoded 12/04/21 16:07) (unknown) (no (unknown) (unknown) SUBCUT QMONTH (units ( unknown) date) 06/13/21 [History unknown) Confirmed 12/04/21] (unknown) (no (unknown) (unknown) Sacral (units (unkno wn) date) dysfunction unknown) (unknown) (no (unknown) (unknown) Signed By: (units (unk nown) date) unknown) (unknown) (no (unknown) (unknown) Smoking Status: (units (unknown) date) Former smoker unknown) (unknown) (no (unknown) (unknown) Social History (units (unknown) date) unknown) (unknown) (no (unknown) (unknown) Status post (units (un known) date) endometrial unknown) ablation (07/11/14) (unknown) (no (unknown) (unknown) Status post (units (un known) date) laparoscopy (1982) unknown) (unknown) (no (unknown) (unknown) Status post (units (un known) date) laparoscopy (2001) unknown) (unknown) (no (unknown) (unknown) Sulfa (units (unkno wn) date) (Sulfonamide unknown) Antibiotics) [SULFA (SULFONAMIDE ANTIBIOTICS)] Allergy (unknown) (no (unknown) (unknown) Surgical History (units (unknown) date) (Reviewed 09/12/21 unknown) @ 14:01 by Milka Viramontes PA-C) (unknown) (no (unknown) (unknown) Tear of (units (unkno wn) date) acetabular labrum unknown) (unknown) (no (unknown) (unknown) This note may (units ( unknown) date) have been all or unknown) partially generated using voice recognition (unknown) (no (unknown) (unknown) Tobacco + (units (unkn own) date) Substance Use unknown) (unknown) (no (unknown) (unknown) Tobacco Status (units (unknown) date) unknown) (unknown) (no (unknown) (unknown) Visit Reasons: (units (unknown) date) another blood shot unknown) eye, and over heating 08 (unknown) (no (unknown) (unknown) Vitals (units (unkno wn) date) unknown) (unknown) (no (unknown) (unknown) Weight 223 lb (units ( unknown) date) unknown) (unknown) (no (unknown) (unknown) alcohol intake: (units (unknown) date) current unknown) (unknown) (no (unknown) (unknown) another blood (units ( unknown) date) shot eye - this unknown) 5th time in 4moths now today its better and she (unknown) (no (unknown) (unknown) cholecalciferol (units (unknown) date) (vitamin D3) 25 unknown) mcg (1,000 unit) capsule 1,000 unit PO DAILY (unknown) (no (unknown) (unknown) codeine [CODEINE] (units (unknown) date) Allergy (Mild, unknown) Verified 12/04/21 16:07) (unknown) (no (unknown) (unknown) cscope- she will (units (unknown) date) check with her GI unknown) dr (unknown) (no (unknown) (unknown) cyclobenzaprine 10 (units (unknown) date) mg tablet 10 mg PO unknown) TID PRN muscle spasm #21 tabs 10/25/21 [Rx (unknown) (no (unknown) (unknown) diphenhydramine (units (unknown) date) 25 unknown) mg-acetaminophen 500 mg tablet (Tylenol PM Extra Strength) 1 (unknown) (no (unknown) (unknown) diphenhydramine-a (units (unknown) date) cetaminophen unknown) [Tylenol PM] PO BEDTIME 03/09/19 [History (unknown) (no (unknown) (unknown) doxylamine (units (unk nown) date) succinate 25 mg unknown) tablet (Unisom (doxylamine)) 25 mg PO BEDTIME PRN (unknown) (no (unknown) (unknown) eye support PO (units (unknown) date) 11/27/20 [History unknown) Confirmed 12/04/21] (unknown) (no (unknown) (unknown) fluconazole 150 (units (unknown) date) mg tablet 150 mg unknown) PO Q3D 2 doses #2 tabs 09/18/21 [Rx Confirmed (unknown) (no (unknown) (unknown) galcanezumab-gnlm (units (unknown) date) 120 mg/mL unknown) subcutaneous pen injector (Emgality Pen) 120 mg (unknown) (no (unknown) (unknown) has an appt with (units (unknown) date) eye dr with in 2 unknown) weeks lt eye (unknown) (no (unknown) (unknown) have occurred. If (units (unknown) date) there are any unknown) questions, please contact the Medical Records (unknown) (no (unknown) (unknown) household (units (unkn own) date) members: none unknown) (unknown) (no (unknown) (unknown) lactobacillus (units ( unknown) date) combination no.8 unknown) [Adult Probiotic] PO DAILY 05/10/19 [History (unknown) (no (unknown) (unknown) levonorgestrel-et (units (unknown) date) hinyl estradiol unknown) 0.1 mg-20 mcg tablet (Falmina (28)) See Rx (unknown) (no (unknown) (unknown) levothyroxine 100 (units (unknown) date) mcg tablet 100 mcg unknown) PO DAILY 03/06/21 [History Confirmed (unknown) (no (unknown) (unknown) malignant (units (unkn own) date) neoplasm of breast unknown) (unknown) (no (unknown) (unknown) mammo - will (units (u nknown) date) order unknown) (unknown) (no (unknown) (unknown) marital status: (units (unknown) date) unknown unknown) (unknown) (no (unknown) (unknown) may occur. (units (unk nown) date) Occasional unknown) wrong-word or 'sound-alike' substitutions may have (unknown) (no (unknown) (unknown) mecobalamin (units (un known) date) (vitamin B12) unknown) 1,000 mcg disintegrating tablet,sublingual 1,000 mcg (unknown) (no (unknown) (unknown) melatonin 10 mg (units (unknown) date) capsule 5 mg PO unknown) BEDTIME Sleep 08/24/19 [History Confirmed (unknown) (no (unknown) (unknown) occupational (units (u nknown) date) status: employed unknown) (unknown) (no (unknown) (unknown) occurred due to (units (unknown) date) the inherent unknown) limitations of voice recognition software. Please (unknown) (no (unknown) (unknown) over heating- (units ( unknown) date) this is not unknown) menopause or the heat, she could have fans on her and (unknown) (no (unknown) (unknown) pantoprazole 20 (units (unknown) date) mg tablet,delayed unknown) release 20 mg PO DAILY 05/10/19 [History (unknown) (no (unknown) (unknown) polyethylene (units (u nknown) date) glycol 3350 17 unknown) gram oral powder packet (Miralax) 17 gram PO DAILY (unknown) (no (unknown) (unknown) prednisone 10 mg (units (unknown) date) tablet 5 mg PO unknown) DAILY 03/06/21 [History Confirmed 12/04/21] (unknown) (no (unknown) (unknown) read the note (units ( unknown) date) carefully and unknown) recognize, using context, where these substitutions (unknown) (no (unknown) (unknown) ref Podiatry- snw (units (unknown) date) told her they dont unknown) take her insurance. will need to do new (unknown) (no (unknown) (unknown) referral to mt (units (unknown) date) leslye. unknown) (unknown) (no (unknown) (unknown) rizatriptan 10 mg (units (unknown) date) tablet (Maxalt) 10 unknown) mg PO Q2H PRN Migraine Headache #9 tabs (unknown) (no (unknown) (unknown) she is still (units (u nknown) date) sweating mostly on unknown) face and head, face turns very red no nausea (unknown) (no (unknown) (unknown) shingles- [facility] (units (unknown) date) [place] unknown) (unknown) (no (unknown) (unknown) software. (units (unkn own) date) Although every unknown) effort is made to edit content, wink cutter operator errors (unknown) (no (unknown) (unknown) sublingual DAILY (units (unknown) date) 05/10/19 [History unknown) Confirmed 12/04/21] (unknown) (no (unknown) (unknown) substance use (units ( unknown) date) type: does not use unknown) (unknown) (no (unknown) (unknown) tab PO BEDTIME (units (unknown) date) PRN Sleep 11/17/17 unknown) [History Confirmed 12/04/21] (unknown) (no (unknown) (unknown) td- at [facility] may be (units (unknown) date) utd unknown) (unknown) (no (unknown) (unknown) vomiting, or (units (u nknown) date) dizziness unknown) Result panel 10 (unknown) (no (unknown) (unknown) (no value) (units (unk nown) date) unknown) (unknown) (no (unknown) (unknown) (Severe, Verified (units (unknown) date) 12/04/21 16:07) unknown) (unknown) (no (unknown) (unknown) [id number] (units (unkno wn) date) unknown) (unknown) (no (unknown) (unknown) 11/17/17 [History (units (unknown) date) Confirmed unknown) 12/04/21] (unknown) (no (unknown) (unknown) 11/27/20 [History (units (unknown) date) Confirmed unknown) 12/04/21] (unknown) (no (unknown) (unknown) 12/04/21 (units (unkno wn) date) unknown) (unknown) (no (unknown) (unknown) 12/04/21] (units (unkn own) date) unknown) (unknown) (no (unknown) (unknown) 12/06/20 [Rx (units (u nknown) date) Confirmed unknown) 12/04/21] (unknown) (no (unknown) (unknown) 16:08 (units (unkno wn) date) unknown) (unknown) (no (unknown) (unknown) Accompanied by: (units (unknown) date) Self / Same As unknown) Patient (unknown) (no (unknown) (unknown) Age/Sex: 56 / F (units (unknown) date) Date of Service: unknown) (unknown) (no (unknown) (unknown) Allergies (units (unkn own) date) unknown) (unknown) (no (unknown) (unknown) [place], [place] (units ( unknown) date) [id number] unknown) (unknown) (no (unknown) (unknown) Arthritis (units (unkn own) date) unknown) (unknown) (no (unknown) (unknown) Assessment + Plan (units (unknown) date) unknown) (unknown) (no (unknown) (unknown) Asthma (units (unkno wn) date) unknown) (unknown) (no (unknown) (unknown) Attending Dr: (units ( unknown) date) Rocco Pyle MD unknown) (unknown) (no (unknown) (unknown) BMI 35.4 (units (unkno wn) date) unknown) (unknown) (no (unknown) (unknown) BP 132/89 (units (unkn own) date) unknown) (unknown) (no (unknown) (unknown) Blood Pressure (units (unknown) date) Location Lt unknown) brachial (unknown) (no (unknown) (unknown) Bruises easily (units (unknown) date) unknown) (unknown) (no (unknown) (unknown) Confirmed (units (unkn own) date) 12/04/21] unknown) (unknown) (no (unknown) (unknown) Constipation (units (u nknown) date) unknown) (unknown) (no (unknown) (unknown) : 1965 (units (unknown) date) Acct:[id number] unknown) (unknown) (no (unknown) (unknown) Dept at (units (unkno wn) date) . unknown) (unknown) (no (unknown) (unknown) Documented By: (units (unknown) date) Rocco Pyle MD unknown) 12/04/21 0747 (unknown) (no (unknown) (unknown) Draft (units (unkno wn) date) unknown) (unknown) (no (unknown) (unknown) Family History (units (unknown) date) (Reviewed 09/12/21 unknown) @ 14:01 by Milka Viramontes PA-C) (unknown) (no (unknown) (unknown) Father Heart (units (u nknown) date) disease unknown) (unknown) (no (unknown) (unknown) Fibromyalgia (units (u nknown) date) unknown) (unknown) (no (unknown) (unknown) [facility] ([facility] ([facility] unknown) (unknown) (no (unknown) (unknown) Former smoker (units ( unknown) date) unknown) (unknown) (no (unknown) (unknown) Gastroparesis (units ( unknown) date) unknown) (unknown) (no (unknown) (unknown) Grandfather Heart (units (unknown) date) disease unknown) (unknown) (no (unknown) (unknown) Grandfather (units (un known) date) Stomach cancer unknown) (unknown) (no (unknown) (unknown) Grandmother (units (un known) date) Cancer unknown) (unknown) (no (unknown) (unknown) Greater (units (unkno wn) date) trochanteric unknown) bursitis of right hip (unknown) (no (unknown) (unknown) HIVES (units (unkno wn) date) unknown) (unknown) (no (unknown) (unknown) Health Management (units (unknown) date) reviewed with unknown) patient: Yes (unknown) (no (unknown) (unknown) Health Management (units (unknown) date) unknown) (unknown) (no (unknown) (unknown) Heart murmur (units (u nknown) date) unknown) (unknown) (no (unknown) (unknown) Height 5 ft 6.5 (units (unknown) date) in unknown) (unknown) (no (unknown) (unknown) History of foot (units (unknown) date) surgery (08/2015) unknown) (unknown) (no (unknown) (unknown) History of (units (unk nown) date) pneumonia unknown) (unknown) (no (unknown) (unknown) History of third (units (unknown) date) molar tooth unknown) extraction (1984) (unknown) (no (unknown) (unknown) History of (units (unk nown) date) thyroidectomy unknown) (07/11/14) (unknown) (no (unknown) (unknown) Instructions (units (u nknown) date) .Route .COMPLEX unknown) #112 tabs 11/12/21 [Rx Confirmed 12/04/21] (unknown) (no (unknown) (unknown) Intake Note: (units (u nknown) date) unknown) (unknown) (no (unknown) (unknown) Intake performed (units (unknown) date) by: Marleen Tamayo unknown) (unknown) (no (unknown) (unknown) Intake (units (unkno wn) date) unknown) (unknown) (no (unknown) (unknown) Intake- Clincial (units (unknown) date) Staff unknown) (unknown) (no (unknown) (unknown) Internal Medicine (units (unknown) date) Office Visit unknown) (unknown) (no (unknown) (unknown) Last Menstural (units (unknown) date) Cycle + Details unknown) (unknown) (no (unknown) (unknown) Loc: [facility] (units (unkno wn) date) unknown) (unknown) (no (unknown) (unknown) Low blood sugar (units (unknown) date) unknown) (unknown) (no (unknown) (unknown) MM screening (units (u nknown) date) mammo BI 1 Month unknown) Z12.31 - Encounter for screening mammogram for (unknown) (no (unknown) (unknown) 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) (unknown) (no (unknown) (unknown) Medical History (units (unknown) date) (Reviewed 09/12/21 unknown) @ 14:01 by Milka Viramontes PA-C) (unknown) (no (unknown) (unknown) Medications (units (un known) date) unknown) (unknown) (no (unknown) (unknown) Menstrual (units (unkn own) date) migraine, not unknown) intractable, without status migrainosus (unknown) (no (unknown) (unknown) Migraines (units (unkn own) date) unknown) (unknown) (no (unknown) (unknown) Mother Stroke (units ( unknown) date) unknown) (unknown) (no (unknown) (unknown) NAUSEA (units (unkno wn) date) unknown) (unknown) (no (unknown) (unknown) Orders (units (unkno wn) date) unknown) (unknown) (no (unknown) (unknown) Orders: (units (unkno wn) date) unknown) (unknown) (no (unknown) (unknown) Osteoarthritis (units (unknown) date) unknown) (unknown) (no (unknown) (unknown) Other Menstrual (units (unknown) date) Period: unknown) Postmenopausal (unknown) (no (unknown) (unknown) Oxygen Delivery (units (unknown) date) Method room air unknown) (unknown) (no (unknown) (unknown) PFSH (units (unkno wn) date) unknown) (unknown) (no (unknown) (unknown) PRN 08/24/19 (units (u nknown) date) [History Confirmed unknown) 12/04/21] (unknown) (no (unknown) (unknown) Patient: (units (unkno wn) date) Britton,Yolanda A unknown) MR#: [id number] (unknown) (no (unknown) (unknown) Piriformis (units (unk nown) date) syndrome unknown) (unknown) (no (unknown) (unknown) Position Sitting (units (unknown) date) unknown) (unknown) (no (unknown) (unknown) Pulse 87 (units (unkno wn) date) unknown) (unknown) (no (unknown) (unknown) Pulse Oximetry (units (unknown) date) (%) 97 unknown) (unknown) (no (unknown) (unknown) Pulse Source (units (u nknown) date) Monitor unknown) (unknown) (no (unknown) (unknown) Reason For Visit (units (unknown) date) unknown) (unknown) (no (unknown) (unknown) SENSITIVE TO (units (u nknown) date) NARCOTICS Allergy unknown) (Severe, Uncoded 12/04/21 16:07) (unknown) (no (unknown) (unknown) SUBCUT QMONTH (units ( unknown) date) 06/13/21 [History unknown) Confirmed 12/04/21] (unknown) (no (unknown) (unknown) Sacral (units (unkno wn) date) dysfunction unknown) (unknown) (no (unknown) (unknown) Signed By: (units (unk nown) date) unknown) (unknown) (no (unknown) (unknown) Smoking Status: (units (unknown) date) Former smoker unknown) (unknown) (no (unknown) (unknown) Social History (units (unknown) date) unknown) (unknown) (no (unknown) (unknown) Status post (units (un known) date) endometrial unknown) ablation (07/11/14) (unknown) (no (unknown) (unknown) Status post (units (un known) date) laparoscopy (1982) unknown) (unknown) (no (unknown) (unknown) Status post (units (un known) date) laparoscopy (2001) unknown) (unknown) (no (unknown) (unknown) Sulfa (units (unkno wn) date) (Sulfonamide unknown) Antibiotics) [SULFA (SULFONAMIDE ANTIBIOTICS)] Allergy (unknown) (no (unknown) (unknown) Surgical History (units (unknown) date) (Reviewed 09/12/21 unknown) @ 14:01 by Milka Viramontes PA-C) (unknown) (no (unknown) (unknown) Tear of (units (unkno wn) date) acetabular labrum unknown) (unknown) (no (unknown) (unknown) This note may (units ( unknown) date) have been all or unknown) partially generated using voice recognition (unknown) (no (unknown) (unknown) Tobacco + (units (unkn own) date) Substance Use unknown) (unknown) (no (unknown) (unknown) Tobacco Status (units (unknown) date) unknown) (unknown) (no (unknown) (unknown) Visit Reasons: (units (unknown) date) another blood shot unknown) eye, and over heating 08 (unknown) (no (unknown) (unknown) Vitals (units (unkno wn) date) unknown) (unknown) (no (unknown) (unknown) Weight 223 lb (units ( unknown) date) unknown) (unknown) (no (unknown) (unknown) alcohol intake: (units (unknown) date) current unknown) (unknown) (no (unknown) (unknown) another blood (units ( unknown) date) shot eye - this unknown) 5th time in 4moths now today its better and she (unknown) (no (unknown) (unknown) cholecalciferol (units (unknown) date) (vitamin D3) 25 unknown) mcg (1,000 unit) capsule 1,000 unit PO DAILY (unknown) (no (unknown) (unknown) codeine [CODEINE] (units (unknown) date) Allergy (Mild, unknown) Verified 12/04/21 16:07) (unknown) (no (unknown) (unknown) cscope- she will (units (unknown) date) check with her GI unknown) (unknown) (no (unknown) (unknown) cyclobenzaprine 10 (units (unknown) date) mg tablet 10 mg PO unknown) TID PRN muscle spasm #21 tabs 10/25/21 [Rx (unknown) (no (unknown) (unknown) diphenhydramine (units (unknown) date) 25 unknown) mg-acetaminophen 500 mg tablet (Tylenol PM Extra Strength) 1 (unknown) (no (unknown) (unknown) diphenhydramine-a (units (unknown) date) cetaminophen unknown) [Tylenol PM] PO BEDTIME 03/09/19 [History (unknown) (no (unknown) (unknown) doxylamine (units (unk nown) date) succinate 25 mg unknown) tablet (Unisom (doxylamine)) 25 mg PO BEDTIME PRN (unknown) (no (unknown) (unknown) eye support PO (units (unknown) date) 11/27/20 [History unknown) Confirmed 12/04/21] (unknown) (no (unknown) (unknown) fluconazole 150 (units (unknown) date) mg tablet 150 mg unknown) PO Q3D 2 doses #2 tabs 09/18/21 [Rx Confirmed (unknown) (no (unknown) (unknown) galcanezumab-gnlm (units (unknown) date) 120 mg/mL unknown) subcutaneous pen injector (Emgality Pen) 120 mg (unknown) (no (unknown) (unknown) has an appt with (units (unknown) date) eye dr with in 2 unknown) weeks lt eye (unknown) (no (unknown) (unknown) have occurred. If (units (unknown) date) there are any unknown) questions, please contact the Medical Records (unknown) (no (unknown) (unknown) household (units (unkn own) date) members: none unknown) (unknown) (no (unknown) (unknown) lactobacillus (units ( unknown) date) combination no.8 unknown) [Adult Probiotic] PO DAILY 05/10/19 [History (unknown) (no (unknown) (unknown) levonorgestrel-et (units (unknown) date) hinyl estradiol unknown) 0.1 mg-20 mcg tablet (Falmina (28)) See Rx (unknown) (no (unknown) (unknown) levothyroxine 100 (units (unknown) date) mcg tablet 100 mcg unknown) PO DAILY 03/06/21 [History Confirmed (unknown) (no (unknown) (unknown) malignant (units (unkn own) date) neoplasm of breast unknown) (unknown) (no (unknown) (unknown) mammo - will (units (u nknown) date) order unknown) (unknown) (no (unknown) (unknown) marital status: (units (unknown) date) unknown unknown) (unknown) (no (unknown) (unknown) may occur. (units (unk nown) date) Occasional unknown) wrong-word or 'sound-alike' substitutions may have (unknown) (no (unknown) (unknown) mecobalamin (units (un known) date) (vitamin B12) unknown) 1,000 mcg disintegrating tablet,sublingual 1,000 mcg (unknown) (no (unknown) (unknown) melatonin 10 mg (units (unknown) date) capsule 5 mg PO unknown) BEDTIME Sleep 08/24/19 [History Confirmed (unknown) (no (unknown) (unknown) occupational (units (u nknown) date) status: employed unknown) (unknown) (no (unknown) (unknown) occurred due to (units (unknown) date) the inherent unknown) limitations of voice recognition software. Please (unknown) (no (unknown) (unknown) over heating- (units ( unknown) date) this is not unknown) menopause or the heat, she could have fans on her and (unknown) (no (unknown) (unknown) pantoprazole 20 (units (unknown) date) mg tablet,delayed unknown) release 20 mg PO DAILY 05/10/19 [History (unknown) (no (unknown) (unknown) polyethylene (units (u nknown) date) glycol 3350 17 unknown) gram oral powder packet (Miralax) 17 gram PO DAILY (unknown) (no (unknown) (unknown) prednisone 10 mg (units (unknown) date) tablet 5 mg PO unknown) DAILY 03/06/21 [History Confirmed 12/04/21] (unknown) (no (unknown) (unknown) read the note (units ( unknown) date) carefully and unknown) recognize, using context, where these substitutions (unknown) (no (unknown) (unknown) ref Podiatry- snw (units (unknown) date) told her they dont unknown) take her insurance. will need to do new (unknown) (no (unknown) (unknown) referral to mt (units (unknown) date) leslye. unknown) (unknown) (no (unknown) (unknown) rizatriptan 10 mg (units (unknown) date) tablet (Maxalt) 10 unknown) mg PO Q2H PRN Migraine Headache #9 tabs (unknown) (no (unknown) (unknown) she is still (units (u nknown) date) sweating mostly on unknown) face and head, face turns very red no nausea (unknown) (no (unknown) (unknown) [facility]- [facility] (units (unknown) date) [facility] unknown) (unknown) (no (unknown) (unknown) software. (units (unkn own) date) Although every unknown) effort is made to edit content, wink cutter operator errors (unknown) (no (unknown) (unknown) sublingual DAILY (units (unknown) date) 05/10/19 [History unknown) Confirmed 12/04/21] (unknown) (no (unknown) (unknown) substance use (units ( unknown) date) type: does not use unknown) (unknown) (no (unknown) (unknown) tab PO BEDTIME (units (unknown) date) PRN Sleep 11/17/17 unknown) [History Confirmed 12/04/21] (unknown) (no (unknown) (unknown) td- at [facility] may be (units (unknown) date) utd unknown) (unknown) (no (unknown) (unknown) vomiting, or (units (u nknown) date) dizziness unknown) Result panel 11 (unknown) (no (unknown) (unknown) (no value) (units (unk nown) date) unknown) (unknown) (no (unknown) (unknown) (Severe, Verified (units (unknown) date) 12/04/21 16:07) unknown) (unknown) (no (unknown) (unknown) [id number] (units (unkno wn) date) unknown) (unknown) (no (unknown) (unknown) 11/17/17 [History (units (unknown) date) Confirmed unknown) 12/04/21] (unknown) (no (unknown) (unknown) 11/27/20 [History (units (unknown) date) Confirmed unknown) 12/04/21] (unknown) (no (unknown) (unknown) 12/04/21 (units (unkno wn) date) unknown) (unknown) (no (unknown) (unknown) 12/04/21] (units (unkn own) date) unknown) (unknown) (no (unknown) (unknown) 12/06/20 [Rx (units (u nknown) date) Confirmed unknown) 12/04/21] (unknown) (no (unknown) (unknown) 16:08 (units (unkno wn) date) unknown) (unknown) (no (unknown) (unknown) Accompanied by: (units (unknown) date) Self / Same As unknown) Patient (unknown) (no (unknown) (unknown) Age/Sex: 56 / F (units (unknown) date) Date of Service: unknown) (unknown) (no (unknown) (unknown) Allergies (units (unkn own) date) unknown) (unknown) (no (unknown) (unknown) [place], [place] (units ( unknown) date) [id number] unknown) (unknown) (no (unknown) (unknown) Arthritis (units (unkn own) date) unknown) (unknown) (no (unknown) (unknown) Assessment + Plan (units (unknown) date) unknown) (unknown) (no (unknown) (unknown) Asthma (units (unkno wn) date) unknown) (unknown) (no (unknown) (unknown) Attending Dr: (units ( unknown) date) Rocco Pyle MD unknown) (unknown) (no (unknown) (unknown) BMI 35.4 (units (unkno wn) date) unknown) (unknown) (no (unknown) (unknown) BP 132/89 (units (unkn own) date) unknown) (unknown) (no (unknown) (unknown) Blood Pressure (units (unknown) date) Location Lt unknown) brachial (unknown) (no (unknown) (unknown) Bruises easily (units (unknown) date) unknown) (unknown) (no (unknown) (unknown) Came on in spring (units (unknown) date) due to increawes unknown) in activity. Now reliably reproducale with (unknown) (no (unknown) (unknown) Confirmed (units (unkn own) date) 12/04/21] unknown) (unknown) (no (unknown) (unknown) Constipation (units (u nknown) date) unknown) (unknown) (no (unknown) (unknown) : 1965 (units (unknown) date) Acct:[id number] unknown) (unknown) (no (unknown) (unknown) Dept at (units (unkno wn) date) . unknown) (unknown) (no (unknown) (unknown) Details: (units (unkno wn) date) unknown) (unknown) (no (unknown) (unknown) Documented By: (units (unknown) date) Rocco Pyle MD unknown) 12/04/21 0747 (unknown) (no (unknown) (unknown) Draft (units (unkno wn) date) unknown) (unknown) (no (unknown) (unknown) Family History (units (unknown) date) (Reviewed 09/12/21 unknown) @ 14:01 by Milka Viramontes PA-C) (unknown) (no (unknown) (unknown) Father Heart (units (u nknown) date) disease unknown) (unknown) (no (unknown) (unknown) Fibromyalgia (units (u nknown) date) unknown) (unknown) (no (unknown) (unknown) [facility] ([facility] ([facility] date[facility] unknown) (unknown) (no (unknown) (unknown) Former smoker (units ( unknown) date) unknown) (unknown) (no (unknown) (unknown) Gastroparesis (units ( unknown) date) unknown) (unknown) (no (unknown) (unknown) Grandfather Heart (units (unknown) date) disease unknown) (unknown) (no (unknown) (unknown) Grandfather (units (un known) date) Stomach cancer unknown) (unknown) (no (unknown) (unknown) Grandmother (units (un known) date) Cancer unknown) (unknown) (no (unknown) (unknown) Greater (units (unkno wn) date) trochanteric unknown) bursitis of right hip (unknown) (no (unknown) (unknown) HIVES (units (unkno wn) date) unknown) (unknown) (no (unknown) (unknown) HPI (units (unkno wn) date) unknown) (unknown) (no (unknown) (unknown) Health Management (units (unknown) date) reviewed with unknown) patient: Yes (unknown) (no (unknown) (unknown) Health Management (units (unknown) date) unknown) (unknown) (no (unknown) (unknown) Heart murmur (units (u nknown) date) unknown) (unknown) (no (unknown) (unknown) Height 5 ft 6.5 (units (unknown) date) in unknown) (unknown) (no (unknown) (unknown) History of foot (units (unknown) date) surgery (08/2015) unknown) (unknown) (no (unknown) (unknown) History of (units (unk nown) date) pneumonia unknown) (unknown) (no (unknown) (unknown) History of third (units (unknown) date) molar tooth unknown) extraction (1984) (unknown) (no (unknown) (unknown) History of (units (unk nown) date) thyroidectomy unknown) (07/11/14) (unknown) (no (unknown) (unknown) Instructions (units (u nknown) date) .Route .COMPLEX unknown) #112 tabs 11/12/21 [Rx Confirmed 12/04/21] (unknown) (no (unknown) (unknown) Intake Note: (units (u nknown) date) unknown) (unknown) (no (unknown) (unknown) Intake performed (units (unknown) date) by: Marleen Tamayo unknown) (unknown) (no (unknown) (unknown) Intake (units (unkno wn) date) unknown) (unknown) (no (unknown) (unknown) Intake- Clincial (units (unknown) date) Staff unknown) (unknown) (no (unknown) (unknown) Internal Medicine (units (unknown) date) Office Visit unknown) (unknown) (no (unknown) (unknown) Last Menstural (units (unknown) date) Cycle + Details unknown) (unknown) (no (unknown) (unknown) Loc: [facility] (units (unkno wn) date) unknown) (unknown) (no (unknown) (unknown) Low blood sugar (units (unknown) date) unknown) (unknown) (no (unknown) (unknown) MM screening (units (u nknown) date) mammo BI 1 Month unknown) Z12.31 - Encounter for screening mammogram for (unknown) (no (unknown) (unknown) 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) (unknown) (no (unknown) (unknown) Medical History (units (unknown) date) (Reviewed 09/12/21 unknown) @ 14:01 by Milka Viramontes PA-C) (unknown) (no (unknown) (unknown) Medications (units (un known) date) unknown) (unknown) (no (unknown) (unknown) Menstrual (units (unkn own) date) migraine, not unknown) intractable, without status migrainosus (unknown) (no (unknown) (unknown) Migraines (units (unkn own) date) unknown) (unknown) (no (unknown) (unknown) Mother Stroke (units ( unknown) date) unknown) (unknown) (no (unknown) (unknown) NAUSEA (units (unkno wn) date) unknown) (unknown) (no (unknown) (unknown) Orders (units (unkno wn) date) unknown) (unknown) (no (unknown) (unknown) Orders: (units (unkno wn) date) unknown) (unknown) (no (unknown) (unknown) Osteoarthritis (units (unknown) date) unknown) (unknown) (no (unknown) (unknown) Other Menstrual (units (unknown) date) Period: unknown) Postmenopausal (unknown) (no (unknown) (unknown) Oxygen Delivery (units (unknown) date) Method room air unknown) (unknown) (no (unknown) (unknown) PFSH (units (unkno wn) date) unknown) (unknown) (no (unknown) (unknown) PRN 08/24/19 (units (u nknown) date) [History Confirmed unknown) 12/04/21] (unknown) (no (unknown) (unknown) Patient: (units (unkno wn) date) Yolanda Britton unknown) MR#: [id number] (unknown) (no (unknown) (unknown) Piriformis (units (unk nown) date) syndrome unknown) (unknown) (no (unknown) (unknown) Position Sitting (units (unknown) date) unknown) (unknown) (no (unknown) (unknown) Pulse 87 (units (unkno wn) date) unknown) (unknown) (no (unknown) (unknown) Pulse Oximetry (units (unknown) date) (%) 97 unknown) (unknown) (no (unknown) (unknown) Pulse Source (units (u nknown) date) Monitor unknown) (unknown) (no (unknown) (unknown) Reason For Visit (units (unknown) date) unknown) (unknown) (no (unknown) (unknown) SENSITIVE TO (units (u nknown) date) NARCOTICS Allergy unknown) (Severe, Uncoded 12/04/21 16:07) (unknown) (no (unknown) (unknown) SUBCUT QMONTH (units ( unknown) date) 06/13/21 [History unknown) Confirmed 12/04/21] (unknown) (no (unknown) (unknown) Sacral (units (unkno wn) date) dysfunction unknown) (unknown) (no (unknown) (unknown) Signed By: (units (unk nown) date) unknown) (unknown) (no (unknown) (unknown) Smoking Status: (units (unknown) date) Former smoker unknown) (unknown) (no (unknown) (unknown) Social History (units (unknown) date) unknown) (unknown) (no (unknown) (unknown) Status post (units (un known) date) endometrial unknown) ablation (07/11/14) (unknown) (no (unknown) (unknown) Status post (units (un known) date) laparoscopy (1982) unknown) (unknown) (no (unknown) (unknown) Status post (units (un known) date) laparoscopy (2001) unknown) (unknown) (no (unknown) (unknown) Sulfa (units (unkno wn) date) (Sulfonamide unknown) Antibiotics) [SULFA (SULFONAMIDE ANTIBIOTICS)] Allergy (unknown) (no (unknown) (unknown) Surgical History (units (unknown) date) (Reviewed 09/12/21 unknown) @ 14:01 by Milka Viramontes PA-C) (unknown) (no (unknown) (unknown) Tear of (units (unkno wn) date) acetabular labrum unknown) (unknown) (no (unknown) (unknown) This note may (units ( unknown) date) have been all or unknown) partially generated using voice recognition (unknown) (no (unknown) (unknown) Tobacco + (units (unkn own) date) Substance Use unknown) (unknown) (no (unknown) (unknown) Tobacco Status (units (unknown) date) unknown) (unknown) (no (unknown) (unknown) Visit Reasons: (units (unknown) date) another blood shot unknown) eye, and over heating 08 (unknown) (no (unknown) (unknown) Vitals (units (unkno wn) date) unknown) (unknown) (no (unknown) (unknown) Weight 223 lb (units ( unknown) date) unknown) (unknown) (no (unknown) (unknown) alcohol intake: (units (unknown) date) current unknown) (unknown) (no (unknown) (unknown) another blood (units ( unknown) date) shot eye - this unknown) 5th time in 4moths now today its better and she (unknown) (no (unknown) (unknown) cholecalciferol (units (unknown) date) (vitamin D3) 25 unknown) mcg (1,000 unit) capsule 1,000 unit PO DAILY (unknown) (no (unknown) (unknown) codeine [CODEINE] (units (unknown) date) Allergy (Mild, unknown) Verified 12/04/21 16:07) (unknown) (no (unknown) (unknown) cscope- she will (units (unknown) date) check with her GI unknown) dr (unknown) (no (unknown) (unknown) cyclobenzaprine 10 (units (unknown) date) mg tablet 10 mg PO unknown) TID PRN muscle spasm #21 tabs 10/25/21 [Rx (unknown) (no (unknown) (unknown) diphenhydramine (units (unknown) date) 25 unknown) mg-acetaminophen 500 mg tablet (Tylenol PM Extra Strength) 1 (unknown) (no (unknown) (unknown) diphenhydramine-a (units (unknown) date) cetaminophen unknown) [Tylenol PM] PO BEDTIME 03/09/19 [History (unknown) (no (unknown) (unknown) doxylamine (units (unk nown) date) succinate 25 mg unknown) tablet (Unisom (doxylamine)) 25 mg PO BEDTIME PRN (unknown) (no (unknown) (unknown) eye support PO (units (unknown) date) 11/27/20 [History unknown) Confirmed 12/04/21] (unknown) (no (unknown) (unknown) fluconazole 150 (units (unknown) date) mg tablet 150 mg unknown) PO Q3D 2 doses #2 tabs 09/18/21 [Rx Confirmed (unknown) (no (unknown) (unknown) galcanezumab-gnlm (units (unknown) date) 120 mg/mL unknown) subcutaneous pen injector (Emgality Pen) 120 mg (unknown) (no (unknown) (unknown) has an appt with (units (unknown) date) eye dr with in 2 unknown) weeks lt eye (unknown) (no (unknown) (unknown) have occurred. If (units (unknown) date) there are any unknown) questions, please contact the Medical Records (unknown) (no (unknown) (unknown) household (units (unkn own) date) members: none unknown) (unknown) (no (unknown) (unknown) lactobacillus (units ( unknown) date) combination no.8 unknown) [Adult Probiotic] PO DAILY 05/10/19 [History (unknown) (no (unknown) (unknown) levonorgestrel-et (units (unknown) date) hinyl estradiol unknown) 0.1 mg-20 mcg tablet (Falmina (28)) See Rx (unknown) (no (unknown) (unknown) levothyroxine 100 (units (unknown) date) mcg tablet 100 mcg unknown) PO DAILY 03/06/21 [History Confirmed (unknown) (no (unknown) (unknown) malignant (units (unkn own) date) neoplasm of breast unknown) (unknown) (no (unknown) (unknown) mammo - will (units (u nknown) date) order unknown) (unknown) (no (unknown) (unknown) marital status: (units (unknown) date) unknown unknown) (unknown) (no (unknown) (unknown) may occur. (units (unk nown) date) Occasional unknown) wrong-word or 'sound-alike' substitutions may have (unknown) (no (unknown) (unknown) mecobalamin (units (un known) date) (vitamin B12) unknown) 1,000 mcg disintegrating tablet,sublingual 1,000 mcg (unknown) (no (unknown) (unknown) melatonin 10 mg (units (unknown) date) capsule 5 mg PO unknown) BEDTIME Sleep 08/24/19 [History Confirmed (unknown) (no (unknown) (unknown) occupational (units (u nknown) date) status: employed unknown) (unknown) (no (unknown) (unknown) occurred due to (units (unknown) date) the inherent unknown) limitations of voice recognition software. Please (unknown) (no (unknown) (unknown) over heating- (units ( unknown) date) this is not unknown) menopause or the heat, she could have fans on her and (unknown) (no (unknown) (unknown) pantoprazole 20 (units (unknown) date) mg tablet,delayed unknown) release 20 mg PO DAILY 05/10/19 [History (unknown) (no (unknown) (unknown) polyethylene (units (u nknown) date) glycol 3350 17 unknown) gram oral powder packet (Miralax) 17 gram PO DAILY (unknown) (no (unknown) (unknown) prednisone 10 mg (units (unknown) date) tablet 5 mg PO unknown) DAILY 03/06/21 [History Confirmed 12/04/21] (unknown) (no (unknown) (unknown) read the note (units ( unknown) date) carefully and unknown) recognize, using context, where these substitutions (unknown) (no (unknown) (unknown) ref Podiatry- snw (units (unknown) date) told her they dont unknown) take her insurance. will need to do new (unknown) (no (unknown) (unknown) referral to [facility] (units (unknown) date) leslye. unknown) (unknown) (no (unknown) (unknown) relatively minor (units (unknown) date) exertion. No unknown) (unknown) (no (unknown) (unknown) rizatriptan 10 mg (units (unknown) date) tablet (Maxalt) 10 unknown) mg PO Q2H PRN Migraine Headache #9 tabs (unknown) (no (unknown) (unknown) she is still (units (u nknown) date) sweating mostly on unknown) face and head, face turns very red no nausea (unknown) (no (unknown) (unknown) shingles- [facility] (units (unknown) date) [place] unknown) (unknown) (no (unknown) (unknown) software. (units (unkn own) date) Although every unknown) effort is made to edit content, wink cutter operator errors (unknown) (no (unknown) (unknown) sublingual DAILY (units (unknown) date) 05/10/19 [History unknown) Confirmed 12/04/21] (unknown) (no (unknown) (unknown) substance use (units ( unknown) date) type: does not use unknown) (unknown) (no (unknown) (unknown) tab PO BEDTIME (units (unknown) date) PRN Sleep 11/17/17 unknown) [History Confirmed 12/04/21] (unknown) (no (unknown) (unknown) td- at [facility] may be (units (unknown) date) utd unknown) (unknown) (no (unknown) (unknown) vomiting, or (units (u nknown) date) dizziness unknown) Result panel 12 (unknown) (no (unknown) (unknown) (no value) (units (unk nown) date) unknown) (unknown) (no (unknown) (unknown) (Severe, Verified (units (unknown) date) 12/04/21 16:07) unknown) (unknown) (no (unknown) (unknown) [id number] (units (unkno wn) date) unknown) (unknown) (no (unknown) (unknown) 11/17/17 [History (units (unknown) date) Confirmed unknown) 12/04/21] (unknown) (no (unknown) (unknown) 11/27/20 [History (units (unknown) date) Confirmed unknown) 12/04/21] (unknown) (no (unknown) (unknown) 12/04/21 (units (unkno wn) date) unknown) (unknown) (no (unknown) (unknown) 12/04/21] (units (unkn own) date) unknown) (unknown) (no (unknown) (unknown) 12/06/20 [Rx (units (u nknown) date) Confirmed unknown) 12/04/21] (unknown) (no (unknown) (unknown) 16:08 (units (unkno wn) date) unknown) (unknown) (no (unknown) (unknown) Accompanied by: (units (unknown) date) Self / Same As unknown) Patient (unknown) (no (unknown) (unknown) Age/Sex: 56 / F (units (unknown) date) Date of Service: unknown) (unknown) (no (unknown) (unknown) Allergies (units (unkn own) date) unknown) (unknown) (no (unknown) (unknown) [place], [place] (units ( unknown) date) [id number] unknown) (unknown) (no (unknown) (unknown) Arthritis (units (unkn own) date) unknown) (unknown) (no (unknown) (unknown) Assessment + Plan (units (unknown) date) unknown) (unknown) (no (unknown) (unknown) Asthma (units (unkno wn) date) unknown) (unknown) (no (unknown) (unknown) Attending Dr: (units ( unknown) date) Rocco Pyle MD unknown) (unknown) (no (unknown) (unknown) BMI 35.4 (units (unkno wn) date) unknown) (unknown) (no (unknown) (unknown) BP 132/89 (units (unkn own) date) unknown) (unknown) (no (unknown) (unknown) Blood Pressure (units (unknown) date) Location Lt unknown) brachial (unknown) (no (unknown) (unknown) Bruises easily (units (unknown) date) unknown) (unknown) (no (unknown) (unknown) Came on in spring (units (unknown) date) due to increawes unknown) in activity. Now reliably reproducale with (unknown) (no (unknown) (unknown) Confirmed (units (unkn own) date) 12/04/21] unknown) (unknown) (no (unknown) (unknown) Constipation (units (u nknown) date) unknown) (unknown) (no (unknown) (unknown) : 1965 (units (unknown) date) Acct:[id number] unknown) (unknown) (no (unknown) (unknown) Dept at (units (unkno wn) date) . unknown) (unknown) (no (unknown) (unknown) Details: (units (unkno wn) date) unknown) (unknown) (no (unknown) (unknown) Documented By: (units (unknown) date) Rocco Pyle MD unknown) 12/04/21 0747 (unknown) (no (unknown) (unknown) Dr. Coyne Rheum at (units (unknown) date) [facility] clinic as unknown) [facility]. (unknown) (no (unknown) (unknown) Draft (units (unkno wn) date) unknown) (unknown) (no (unknown) (unknown) Family History (units (unknown) date) (Reviewed 09/12/21 unknown) @ 14:01 by Milka Viramontes PA-C) (unknown) (no (unknown) (unknown) Father Heart (units (u nknown) date) disease unknown) (unknown) (no (unknown) (unknown) Fibromyalgia (units (u nknown) date) unknown) (unknown) (no (unknown) (unknown) [facility] ([facility] ([facility]) (unknown) (no (unknown) (unknown) Former smoker (units ( unknown) date) unknown) (unknown) (no (unknown) (unknown) Gastroparesis (units ( unknown) date) unknown) (unknown) (no (unknown) (unknown) Grandfather Heart (units (unknown) date) disease unknown) (unknown) (no (unknown) (unknown) Grandfather (units (un known) date) Stomach cancer unknown) (unknown) (no (unknown) (unknown) Grandmother (units (un known) date) Cancer unknown) (unknown) (no (unknown) (unknown) Greater (units (unkno wn) date) trochanteric unknown) bursitis of right hip (unknown) (no (unknown) (unknown) HIVES (units (unkno wn) date) unknown) (unknown) (no (unknown) (unknown) HPI (units (unkno wn) date) unknown) (unknown) (no (unknown) (unknown) Health Management (units (unknown) date) reviewed with unknown) patient: Yes (unknown) (no (unknown) (unknown) Health Management (units (unknown) date) unknown) (unknown) (no (unknown) (unknown) Heart murmur (units (u nknown) date) unknown) (unknown) (no (unknown) (unknown) Height 5 ft 6.5 (units (unknown) date) in unknown) (unknown) (no (unknown) (unknown) History of foot (units (unknown) date) surgery (08/2015) unknown) (unknown) (no (unknown) (unknown) History of (units (unk nown) date) pneumonia unknown) (unknown) (no (unknown) (unknown) History of third (units (unknown) date) molar tooth unknown) extraction (1984) (unknown) (no (unknown) (unknown) History of (units (unk nown) date) thyroidectomy unknown) (07/11/14) (unknown) (no (unknown) (unknown) Instructions (units (u nknown) date) .Route .COMPLEX unknown) #112 tabs 11/12/21 [Rx Confirmed 12/04/21] (unknown) (no (unknown) (unknown) Intake Note: (units (u nknown) date) unknown) (unknown) (no (unknown) (unknown) Intake performed (units (unknown) date) by: Marleen Tamayo unknown) (unknown) (no (unknown) (unknown) Intake (units (unkno wn) date) unknown) (unknown) (no (unknown) (unknown) Intake- Clincial (units (unknown) date) Staff unknown) (unknown) (no (unknown) (unknown) Internal Medicine (units (unknown) date) Office Visit unknown) (unknown) (no (unknown) (unknown) Last Menstural (units (unknown) date) Cycle + Details unknown) (unknown) (no (unknown) (unknown) Loc: [facility] (units (unkno wn) date) unknown) (unknown) (no (unknown) (unknown) Low blood sugar (units (unknown) date) unknown) (unknown) (no (unknown) (unknown) MM screening (units (u nknown) date) mammo BI 1 Month unknown) Z12.31 - Encounter for screening mammogram for (unknown) (no (unknown) (unknown) 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) () (unknown) (no (unknown) (unknown) Medical History (units (unknown) date) (Reviewed 09/12/21 unknown) @ 14:01 by Milka Viramontes PA-C) (unknown) (no (unknown) (unknown) Medications (units (un known) date) unknown) (unknown) (no (unknown) (unknown) Menstrual (units (unkn own) date) migraine, not unknown) intractable, without status migrainosus (unknown) (no (unknown) (unknown) Migraines (units (unkn own) date) unknown) (unknown) (no (unknown) (unknown) Mother Stroke (units ( unknown) date) unknown) (unknown) (no (unknown) (unknown) NAUSEA (units (unkno wn) date) unknown) (unknown) (no (unknown) (unknown) Orders (units (unkno wn) date) unknown) (unknown) (no (unknown) (unknown) Orders: (units (unkno wn) date) unknown) (unknown) (no (unknown) (unknown) Osteoarthritis (units (unknown) date) unknown) (unknown) (no (unknown) (unknown) Other Menstrual (units (unknown) date) Period: unknown) Postmenopausal (unknown) (no (unknown) (unknown) Oxygen Delivery (units (unknown) date) Method room air unknown) (unknown) (no (unknown) (unknown) PFSH (units (unkno wn) date) unknown) (unknown) (no (unknown) (unknown) PRN 08/24/19 (units (u nknown) date) [History Confirmed unknown) 12/04/21] (unknown) (no (unknown) (unknown) Patient: (units (unkno wn) date) Yolanda Britton unknown) MR#: [id number] (unknown) (no (unknown) (unknown) Piriformis (units (unk nown) date) syndrome unknown) (unknown) (no (unknown) (unknown) Position Sitting (units (unknown) date) unknown) (unknown) (no (unknown) (unknown) Pulse 87 (units (unkno wn) date) unknown) (unknown) (no (unknown) (unknown) Pulse Oximetry (units (unknown) date) (%) 97 unknown) (unknown) (no (unknown) (unknown) Pulse Source (units (u nknown) date) Monitor unknown) (unknown) (no (unknown) (unknown) Reason For Visit (units (unknown) date) unknown) (unknown) (no (unknown) (unknown) SENSITIVE TO (units (u nknown) date) NARCOTICS Allergy unknown) (Severe, Uncoded 12/04/21 16:07) (unknown) (no (unknown) (unknown) SUBCUT QMONTH (units ( unknown) date) 06/13/21 [History unknown) Confirmed 12/04/21] (unknown) (no (unknown) (unknown) Sacral (units (unkno wn) date) dysfunction unknown) (unknown) (no (unknown) (unknown) Signed By: (units (unk nown) date) unknown) (unknown) (no (unknown) (unknown) Smoking Status: (units (unknown) date) Former smoker unknown) (unknown) (no (unknown) (unknown) Social History (units (unknown) date) unknown) (unknown) (no (unknown) (unknown) Started Emgality (units (unknown) date) abotu a year ago. unknown) More or less associated with sx. (unknown) (no (unknown) (unknown) Status post (units (un known) date) endometrial unknown) ablation (07/11/14) (unknown) (no (unknown) (unknown) Status post (units (un known) date) laparoscopy (1982) unknown) (unknown) (no (unknown) (unknown) Status post (units (un known) date) laparoscopy (2001) unknown) (unknown) (no (unknown) (unknown) Sulfa (units (unkno wn) date) (Sulfonamide unknown) Antibiotics) [SULFA (SULFONAMIDE ANTIBIOTICS)] Allergy (unknown) (no (unknown) (unknown) Surgical History (units (unknown) date) (Reviewed 09/12/21 unknown) @ 14:01 by Milka Viramontes PA-C) (unknown) (no (unknown) (unknown) Tear of (units (unkno wn) date) acetabular labrum unknown) (unknown) (no (unknown) (unknown) This note may (units ( unknown) date) have been all or unknown) partially generated using voice recognition (unknown) (no (unknown) (unknown) Tobacco + (units (unkn own) date) Substance Use unknown) (unknown) (no (unknown) (unknown) Tobacco Status (units (unknown) date) unknown) (unknown) (no (unknown) (unknown) Visit Reasons: (units (unknown) date) another blood shot unknown) eye, and over heating 08 (unknown) (no (unknown) (unknown) Vitals (units (unkno wn) date) unknown) (unknown) (no (unknown) (unknown) Weight 223 lb (units ( unknown) date) unknown) (unknown) (no (unknown) (unknown) alcohol intake: (units (unknown) date) current unknown) (unknown) (no (unknown) (unknown) another blood (units ( unknown) date) shot eye - this unknown) 5th time in 4moths now today its better and she (unknown) (no (unknown) (unknown) cholecalciferol (units (unknown) date) (vitamin D3) 25 unknown) mcg (1,000 unit) capsule 1,000 unit PO DAILY (unknown) (no (unknown) (unknown) codeine [CODEINE] (units (unknown) date) Allergy (Mild, unknown) Verified 12/04/21 16:07) (unknown) (no (unknown) (unknown) cscope- she will (units (unknown) date) check with her GI unknown) dr (unknown) (no (unknown) (unknown) cyclobenzaprine 10 (units (unknown) date) mg tablet 10 mg PO unknown) TID PRN muscle spasm #21 tabs 10/25/21 [Rx (unknown) (no (unknown) (unknown) diphenhydramine (units (unknown) date) 25 unknown) mg-acetaminophen 500 mg tablet (Tylenol PM Extra Strength) 1 (unknown) (no (unknown) (unknown) diphenhydramine-a (units (unknown) date) cetaminophen unknown) [Tylenol PM] PO BEDTIME 03/09/19 [History (unknown) (no (unknown) (unknown) doxylamine (units (unk nown) date) succinate 25 mg unknown) tablet (Unisom (doxylamine)) 25 mg PO BEDTIME PRN (unknown) (no (unknown) (unknown) eye support PO (units (unknown) date) 11/27/20 [History unknown) Confirmed 12/04/21] (unknown) (no (unknown) (unknown) fluconazole 150 (units (unknown) date) mg tablet 150 mg unknown) PO Q3D 2 doses #2 tabs 09/18/21 [Rx Confirmed (unknown) (no (unknown) (unknown) galcanezumab-gnlm (units (unknown) date) 120 mg/mL unknown) subcutaneous pen injector (Emgality Pen) 120 mg (unknown) (no (unknown) (unknown) has an appt with (units (unknown) date) eye dr with in 2 unknown) weeks lt eye (unknown) (no (unknown) (unknown) have occurred. If (units (unknown) date) there are any unknown) questions, please contact the Medical Records (unknown) (no (unknown) (unknown) household (units (unkn own) date) members: none unknown) (unknown) (no (unknown) (unknown) lactobacillus (units ( unknown) date) combination no.8 unknown) [Adult Probiotic] PO DAILY 05/10/19 [History (unknown) (no (unknown) (unknown) levonorgestrel-et (units (unknown) date) hinyl estradiol unknown) 0.1 mg-20 mcg tablet (Falmina (28)) See Rx (unknown) (no (unknown) (unknown) levothyroxine 100 (units (unknown) date) mcg tablet 100 mcg unknown) PO DAILY 03/06/21 [History Confirmed (unknown) (no (unknown) (unknown) malignant (units (unkn own) date) neoplasm of breast unknown) (unknown) (no (unknown) (unknown) mammo - will (units (u nknown) date) order unknown) (unknown) (no (unknown) (unknown) marital status: (units (unknown) date) unknown unknown) (unknown) (no (unknown) (unknown) may occur. (units (unk nown) date) Occasional unknown) wrong-word or 'sound-alike' substitutions may have (unknown) (no (unknown) (unknown) mecobalamin (units (un known) date) (vitamin B12) unknown) 1,000 mcg disintegrating tablet,sublingual 1,000 mcg (unknown) (no (unknown) (unknown) melatonin 10 mg (units (unknown) date) capsule 5 mg PO unknown) BEDTIME Sleep 08/24/19 [History Confirmed (unknown) (no (unknown) (unknown) occupational (units (u nknown) date) status: employed unknown) (unknown) (no (unknown) (unknown) occurred due to (units (unknown) date) the inherent unknown) limitations of voice recognition software. Please (unknown) (no (unknown) (unknown) over heating- (units ( unknown) date) this is not unknown) menopause or the heat, she could have fans on her and (unknown) (no (unknown) (unknown) pantoprazole 20 (units (unknown) date) mg tablet,delayed unknown) release 20 mg PO DAILY 05/10/19 [History (unknown) (no (unknown) (unknown) polyethylene (units (u nknown) date) glycol 3350 17 unknown) gram oral powder packet (Miralax) 17 gram PO DAILY (unknown) (no (unknown) (unknown) prednisone 10 mg (units (unknown) date) tablet 5 mg PO unknown) DAILY 03/06/21 [History Confirmed 12/04/21] (unknown) (no (unknown) (unknown) read the note (units ( unknown) date) carefully and unknown) recognize, using context, where these substitutions (unknown) (no (unknown) (unknown) ref Podiatry- snw (units (unknown) date) told her they dont unknown) take her insurance. will need to do new (unknown) (no (unknown) (unknown) referral to mt (units (unknown) date) leslye. unknown) (unknown) (no (unknown) (unknown) relatively minor (units (unknown) date) exertion. No unknown) (unknown) (no (unknown) (unknown) rizatriptan 10 mg (units (unknown) date) tablet (Maxalt) 10 unknown) mg PO Q2H PRN Migraine Headache #9 tabs (unknown) (no (unknown) (unknown) she is still (units (u nknown) date) sweating mostly on unknown) face and head, face turns very red no nausea (unknown) (no (unknown) (unknown) shingles- [facility] (units (unknown) date) [place] unknown) (unknown) (no (unknown) (unknown) software. (units (unkn own) date) Although every unknown) effort is made to edit content, wink cutter operator errors (unknown) (no (unknown) (unknown) sublingual DAILY (units (unknown) date) 05/10/19 [History unknown) Confirmed 12/04/21] (unknown) (no (unknown) (unknown) substance use (units ( unknown) date) type: does not use unknown) (unknown) (no (unknown) (unknown) tab PO BEDTIME (units (unknown) date) PRN Sleep 11/17/17 unknown) [History Confirmed 12/04/21] (unknown) (no (unknown) (unknown) td- at [facility] may be (units (unknown) date) utd unknown) (unknown) (no (unknown) (unknown) vomiting, or (units (u nknown) date) dizziness unknown) Result panel 13 (unknown) (no (unknown) (unknown) (no value) (units (unk nown) date) unknown) (unknown) (no (unknown) (unknown) (Severe, Verified (units (unknown) date) 12/04/21 16:07) unknown) (unknown) (no (unknown) (unknown) [id number] (units (unkno wn) date) unknown) (unknown) (no (unknown) (unknown) 11/17/17 [History (units (unknown) date) Confirmed unknown) 12/04/21] (unknown) (no (unknown) (unknown) 11/27/20 [History (units (unknown) date) Confirmed unknown) 12/04/21] (unknown) (no (unknown) (unknown) 12/04/21 (units (unkno wn) date) unknown) (unknown) (no (unknown) (unknown) 12/04/21] (units (unkn own) date) unknown) (unknown) (no (unknown) (unknown) 12/06/20 [Rx (units (u nknown) date) Confirmed unknown) 12/04/21] (unknown) (no (unknown) (unknown) 16:08 (units (unkno wn) date) unknown) (unknown) (no (unknown) (unknown) Accompanied by: (units (unknown) date) Self / Same As unknown) Patient (unknown) (no (unknown) (unknown) Age/Sex: 56 / F (units (unknown) date) Date of Service: unknown) (unknown) (no (unknown) (unknown) Allergies (units (unkn own) date) unknown) (unknown) (no (unknown) (unknown) [place], [place] (units ( unknown) date) [id number] unknown) (unknown) (no (unknown) (unknown) Arthritis (units (unkn own) date) unknown) (unknown) (no (unknown) (unknown) Assessment + Plan (units (unknown) date) unknown) (unknown) (no (unknown) (unknown) Asthma (units (unkno wn) date) unknown) (unknown) (no (unknown) (unknown) Attending Dr: (units ( unknown) date) Rocco Pyle MD unknown) (unknown) (no (unknown) (unknown) BMI 35.4 (units (unkno wn) date) unknown) (unknown) (no (unknown) (unknown) BP 132/89 (units (unkn own) date) unknown) (unknown) (no (unknown) (unknown) Blood Pressure (units (unknown) date) Location Lt unknown) brachial (unknown) (no (unknown) (unknown) Bruises easily (units (unknown) date) unknown) (unknown) (no (unknown) (unknown) Confirmed (units (unkn own) date) 12/04/21] unknown) (unknown) (no (unknown) (unknown) Constipation (units (u nknown) date) unknown) (unknown) (no (unknown) (unknown) : 1965 (units (unknown) date) Acct:[id number] unknown) (unknown) (no (unknown) (unknown) Dept at (units (unkno wn) date) . unknown) (unknown) (no (unknown) (unknown) Discontinued (units (u nknown) date) Reason: Patient no unknown) longer taking 150 mg PO Q3D 2 tabs 0RF (unknown) (no (unknown) (unknown) Discontinued (units (u nknown) date) unknown) (unknown) (no (unknown) (unknown) Documented By: (units (unknown) date) Rocco Pyle MD unknown) 12/04/21 0747 (unknown) (no (unknown) (unknown) Draft (units (unkno wn) date) unknown) (unknown) (no (unknown) (unknown) Family History (units (unknown) date) (Reviewed 09/12/21 unknown) @ 14:01 by Milka Viramontes PA-C) (unknown) (no (unknown) (unknown) Father Heart (units (u nknown) date) disease unknown) (unknown) (no (unknown) (unknown) Fibromyalgia (units (u nknown) date) unknown) (unknown) (no (unknown) (unknown) [facility] (units (unknown) date) Associates unknown) (unknown) (no (unknown) (unknown) Former smoker (units ( unknown) date) unknown) (unknown) (no (unknown) (unknown) Gastroparesis (units ( unknown) date) unknown) (unknown) (no (unknown) (unknown) Grandfather Heart (units (unknown) date) disease unknown) (unknown) (no (unknown) (unknown) Grandfather (units (un known) date) Stomach cancer unknown) (unknown) (no (unknown) (unknown) Grandmother (units (un known) date) Cancer unknown) (unknown) (no (unknown) (unknown) Greater (units (unkno wn) date) trochanteric unknown) bursitis of right hip (unknown) (no (unknown) (unknown) HIVES (units (unkno wn) date) unknown) (unknown) (no (unknown) (unknown) Health Management (units (unknown) date) reviewed with unknown) patient: Yes (unknown) (no (unknown) (unknown) Health Management (units (unknown) date) unknown) (unknown) (no (unknown) (unknown) Heart murmur (units (u nknown) date) unknown) (unknown) (no (unknown) (unknown) Height 5 ft 6.5 (units (unknown) date) in unknown) (unknown) (no (unknown) (unknown) History of foot (units (unknown) date) surgery (08/2015) unknown) (unknown) (no (unknown) (unknown) History of (units (unk nown) date) pneumonia unknown) (unknown) (no (unknown) (unknown) History of third (units (unknown) date) molar tooth unknown) extraction (1984) (unknown) (no (unknown) (unknown) History of (units (unk nown) date) thyroidectomy unknown) (07/11/14) (unknown) (no (unknown) (unknown) Instructions (units (u nknown) date) .Route .COMPLEX unknown) #112 tabs 11/12/21 [Rx Confirmed 12/04/21] (unknown) (no (unknown) (unknown) Intake Note: (units (u nknown) date) unknown) (unknown) (no (unknown) (unknown) Intake performed (units (unknown) date) by: Marleen Tamayo unknown) (unknown) (no (unknown) (unknown) Intake (units (unkno wn) date) unknown) (unknown) (no (unknown) (unknown) Intake- Clincial (units (unknown) date) Staff unknown) (unknown) (no (unknown) (unknown) Internal Medicine (units (unknown) date) Office Visit unknown) (unknown) (no (unknown) (unknown) Last Menstural (units (unknown) date) Cycle + Details unknown) (unknown) (no (unknown) (unknown) Loc: [facility] (units (unkno wn) date) unknown) (unknown) (no (unknown) (unknown) Low blood sugar (units (unknown) date) unknown) (unknown) (no (unknown) (unknown) MM screening (units (u nknown) date) mammo BI 1 Month unknown) Z12.31 - Encounter for screening mammogram for (unknown) (no (unknown) (unknown) 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) (unknown) (no (unknown) (unknown) Medical History (units (unknown) date) (Reviewed 09/12/21 unknown) @ 14:01 by Milka Viramontes PA-C) (unknown) (no (unknown) (unknown) Medications (units (un known) date) unknown) (unknown) (no (unknown) (unknown) Medications: (units (u nknown) date) unknown) (unknown) (no (unknown) (unknown) Menstrual (units (unkn own) date) migraine, not unknown) intractable, without status migrainosus (unknown) (no (unknown) (unknown) Migraines (units (unkn own) date) unknown) (unknown) (no (unknown) (unknown) Mother Stroke (units ( unknown) date) unknown) (unknown) (no (unknown) (unknown) NAUSEA (units (unkno wn) date) unknown) (unknown) (no (unknown) (unknown) Orders (units (unkno wn) date) unknown) (unknown) (no (unknown) (unknown) Orders: (units (unkno wn) date) unknown) (unknown) (no (unknown) (unknown) Osteoarthritis (units (unknown) date) unknown) (unknown) (no (unknown) (unknown) Other Menstrual (units (unknown) date) Period: unknown) Postmenopausal (unknown) (no (unknown) (unknown) Oxygen Delivery (units (unknown) date) Method room air unknown) (unknown) (no (unknown) (unknown) PFSH (units (unkno wn) date) unknown) (unknown) (no (unknown) (unknown) PRN 08/24/19 (units (u nknown) date) [History Confirmed unknown) 12/04/21] (unknown) (no (unknown) (unknown) Patient: (units (unkno wn) date) Yolanda Britton unknown) MR#: [id number] (unknown) (no (unknown) (unknown) Piriformis (units (unk nown) date) syndrome unknown) (unknown) (no (unknown) (unknown) Position Sitting (units (unknown) date) unknown) (unknown) (no (unknown) (unknown) Pulse 87 (units (unkno wn) date) unknown) (unknown) (no (unknown) (unknown) Pulse Oximetry (units (unknown) date) (%) 97 unknown) (unknown) (no (unknown) (unknown) Pulse Source (units (u nknown) date) Monitor unknown) (unknown) (no (unknown) (unknown) Reason For Visit (units (unknown) date) unknown) (unknown) (no (unknown) (unknown) SENSITIVE TO (units (u nknown) date) NARCOTICS Allergy unknown) (Severe, Uncoded 12/04/21 16:07) (unknown) (no (unknown) (unknown) SUBCUT QMONTH (units ( unknown) date) 06/13/21 [History unknown) Confirmed 12/04/21] (unknown) (no (unknown) (unknown) Sacral (units (unkno wn) date) dysfunction unknown) (unknown) (no (unknown) (unknown) Signed By: (units (unk nown) date) unknown) (unknown) (no (unknown) (unknown) Smoking Status: (units (unknown) date) Former smoker unknown) (unknown) (no (unknown) (unknown) Social History (units (unknown) date) unknown) (unknown) (no (unknown) (unknown) Status post (units (un known) date) endometrial unknown) ablation (07/11/14) (unknown) (no (unknown) (unknown) Status post (units (un known) date) laparoscopy (1982) unknown) (unknown) (no (unknown) (unknown) Status post (units (un known) date) laparoscopy (2001) unknown) (unknown) (no (unknown) (unknown) Sulfa (units (unkno wn) date) (Sulfonamide unknown) Antibiotics) [SULFA (SULFONAMIDE ANTIBIOTICS)] Allergy (unknown) (no (unknown) (unknown) Surgical History (units (unknown) date) (Reviewed 09/12/21 unknown) @ 14:01 by Milka Viramontes PA-C) (unknown) (no (unknown) (unknown) Tear of (units (unkno wn) date) acetabular labrum unknown) (unknown) (no (unknown) (unknown) This note may (units ( unknown) date) have been all or unknown) partially generated using voice recognition (unknown) (no (unknown) (unknown) Tobacco + (units (unkn own) date) Substance Use unknown) (unknown) (no (unknown) (unknown) Tobacco Status (units (unknown) date) unknown) (unknown) (no (unknown) (unknown) Visit Reasons: (units (unknown) date) another blood shot unknown) eye, and over heating 08 (unknown) (no (unknown) (unknown) Vitals (units (unkno wn) date) unknown) (unknown) (no (unknown) (unknown) Weight 223 lb (units ( unknown) date) unknown) (unknown) (no (unknown) (unknown) alcohol intake: (units (unknown) date) current unknown) (unknown) (no (unknown) (unknown) another blood (units ( unknown) date) shot eye - this unknown) 5th time in 4moths now today its better and she (unknown) (no (unknown) (unknown) cholecalciferol (units (unknown) date) (vitamin D3) 25 unknown) mcg (1,000 unit) capsule 1,000 unit PO DAILY (unknown) (no (unknown) (unknown) codeine [CODEINE] (units (unknown) date) Allergy (Mild, unknown) Verified 12/04/21 16:07) (unknown) (no (unknown) (unknown) cscope- she will (units (unknown) date) check with her GI unknown) (unknown) (no (unknown) (unknown) cyclobenzaprine 10 (units (unknown) date) mg tablet 10 mg PO unknown) TID PRN muscle spasm #21 tabs 10/25/21 [Rx (unknown) (no (unknown) (unknown) diphenhydramine (units (unknown) date) 25 unknown) mg-acetaminophen 500 mg tablet (Tylenol PM Extra Strength) 1 (unknown) (no (unknown) (unknown) diphenhydramine-a (units (unknown) date) cetaminophen unknown) [Tylenol PM] PO BEDTIME 03/09/19 [History (unknown) (no (unknown) (unknown) doxylamine (units (unk nown) date) succinate 25 mg unknown) tablet (Unisom (doxylamine)) 25 mg PO BEDTIME PRN (unknown) (no (unknown) (unknown) eye support PO (units (unknown) date) 11/27/20 [History unknown) Confirmed 12/04/21] (unknown) (no (unknown) (unknown) fluconazole (units (un known) date) unknown) (unknown) (no (unknown) (unknown) galcanezumab-gnlm (units (unknown) date) 120 mg/mL unknown) subcutaneous pen injector (Emgality Pen) 120 mg (unknown) (no (unknown) (unknown) has an appt with (units (unknown) date) eye dr with in 2 unknown) weeks lt eye (unknown) (no (unknown) (unknown) have occurred. If (units (unknown) date) there are any unknown) questions, please contact the Medical Records (unknown) (no (unknown) (unknown) household (units (unkn own) date) members: none unknown) (unknown) (no (unknown) (unknown) lactobacillus (units ( unknown) date) combination no.8 unknown) [Adult Probiotic] PO DAILY 05/10/19 [History (unknown) (no (unknown) (unknown) levonorgestrel-et (units (unknown) date) hinyl estradiol unknown) 0.1 mg-20 mcg tablet (Falmina (28)) See Rx (unknown) (no (unknown) (unknown) levothyroxine 100 (units (unknown) date) mcg tablet 100 mcg unknown) PO DAILY 03/06/21 [History Confirmed (unknown) (no (unknown) (unknown) malignant (units (unkn own) date) neoplasm of breast unknown) (unknown) (no (unknown) (unknown) mammo - will (units (u nknown) date) order unknown) (unknown) (no (unknown) (unknown) marital status: (units (unknown) date) unknown unknown) (unknown) (no (unknown) (unknown) may occur. (units (unk nown) date) Occasional unknown) wrong-word or 'sound-alike' substitutions may have (unknown) (no (unknown) (unknown) mecobalamin (units (un known) date) (vitamin B12) unknown) 1,000 mcg disintegrating tablet,sublingual 1,000 mcg (unknown) (no (unknown) (unknown) melatonin 10 mg (units (unknown) date) capsule 5 mg PO unknown) BEDTIME Sleep 08/24/19 [History Confirmed (unknown) (no (unknown) (unknown) occupational (units (u nknown) date) status: employed unknown) (unknown) (no (unknown) (unknown) occurred due to (units (unknown) date) the inherent unknown) limitations of voice recognition software. Please (unknown) (no (unknown) (unknown) over heating- (units ( unknown) date) this is not unknown) menopause or the heat, she could have fans on her and (unknown) (no (unknown) (unknown) pantoprazole 20 (units (unknown) date) mg tablet,delayed unknown) release 20 mg PO DAILY 05/10/19 [History (unknown) (no (unknown) (unknown) polyethylene (units (u nknown) date) glycol 3350 17 unknown) gram oral powder packet (Miralax) 17 gram PO DAILY (unknown) (no (unknown) (unknown) prednisone 10 mg (units (unknown) date) tablet 5 mg PO unknown) DAILY 03/06/21 [History Confirmed 12/04/21] (unknown) (no (unknown) (unknown) read the note (units ( unknown) date) carefully and unknown) recognize, using context, where these substitutions (unknown) (no (unknown) (unknown) ref Podiatry- snw (units (unknown) date) told her they dont unknown) take her insurance. will need to do new (unknown) (no (unknown) (unknown) referral to mt (units (unknown) date) leslye. unknown) (unknown) (no (unknown) (unknown) rizatriptan 10 mg (units (unknown) date) tablet (Maxalt) 10 unknown) mg PO Q2H PRN Migraine Headache #9 tabs (unknown) (no (unknown) (unknown) she is still (units (u nknown) date) sweating mostly on unknown) face and head, face turns very red no nausea (unknown) (no (unknown) (unknown) shingles- [facility] (units (unknown) date) [place] unknown) (unknown) (no (unknown) (unknown) software. (units (unkn own) date) Although every unknown) effort is made to edit content, wink cutter operator errors (unknown) (no (unknown) (unknown) sublingual DAILY (units (unknown) date) 05/10/19 [History unknown) Confirmed 12/04/21] (unknown) (no (unknown) (unknown) substance use (units ( unknown) date) type: does not use unknown) (unknown) (no (unknown) (unknown) tab PO BEDTIME (units (unknown) date) PRN Sleep 11/17/17 unknown) [History Confirmed 12/04/21] (unknown) (no (unknown) (unknown) td- at [facility] may be (units (unknown) date) utd unknown) (unknown) (no (unknown) (unknown) vomiting, or (units (u nknown) date) dizziness unknown) Result panel 14 (unknown) (no (unknown) (unknown) (no value) (units (unk nown) date) unknown) (unknown) (no (unknown) (unknown) (Severe, Verified (units (unknown) date) 12/04/21 16:07) unknown) (unknown) (no (unknown) (unknown) [id number] (units (unkno wn) date) unknown) (unknown) (no (unknown) (unknown) 11/17/17 [History (units (unknown) date) Confirmed unknown) 12/04/21] (unknown) (no (unknown) (unknown) 11/27/20 [History (units (unknown) date) Confirmed unknown) 12/04/21] (unknown) (no (unknown) (unknown) 12/04/21 (units (unkno wn) date) unknown) (unknown) (no (unknown) (unknown) 12/04/21] (units (unkn own) date) unknown) (unknown) (no (unknown) (unknown) 12/06/20 [Rx (units (u nknown) date) Confirmed unknown) 12/04/21] (unknown) (no (unknown) (unknown) 16:08 (units (unkno wn) date) unknown) (unknown) (no (unknown) (unknown) Accompanied by: (units (unknown) date) Self / Same As unknown) Patient (unknown) (no (unknown) (unknown) Affect: normal (units (unknown) date) affect unknown) (unknown) (no (unknown) (unknown) Age/Sex: 56 / F (units (unknown) date) Date of Service: unknown) (unknown) (no (unknown) (unknown) All systems (units (un known) date) reviewed + are unknown) unremarkable except as noted in HPI and below (unknown) (no (unknown) (unknown) Allergies (units (unkn own) date) unknown) (unknown) (no (unknown) (unknown) [place], [place] (units ( unknown) date) [id number] unknown) (unknown) (no (unknown) (unknown) Appearance: (units (un known) date) grossly normal unknown) (unknown) (no (unknown) (unknown) Arthritis (units (unkn own) date) unknown) (unknown) (no (unknown) (unknown) Assessment + Plan (units (unknown) date) unknown) (unknown) (no (unknown) (unknown) Asthma (units (unkno wn) date) unknown) (unknown) (no (unknown) (unknown) Attending Dr: (units ( unknown) date) Rocco Pyle MD unknown) (unknown) (no (unknown) (unknown) Attitude: (units (unkn own) date) cooperative unknown) (unknown) (no (unknown) (unknown) BMI 35.4 (units (unkno wn) date) unknown) (unknown) (no (unknown) (unknown) BP 132/89 (units (unkn own) date) unknown) (unknown) (no (unknown) (unknown) Blood Pressure (units (unknown) date) Location Lt unknown) brachial (unknown) (no (unknown) (unknown) Bruises easily (units (unknown) date) unknown) (unknown) (no (unknown) (unknown) Chief Complaint (units (unknown) date) unknown) (unknown) (no (unknown) (unknown) Chief Complaint: (units (unknown) date) Multiple concerns unknown) (unknown) (no (unknown) (unknown) Confirmed (units (unkn own) date) 12/04/21] unknown) (unknown) (no (unknown) (unknown) Conjunctival (units (u nknown) date) hemorrhage: unknown) Experienced a blood shot eye on the left side with no (unknown) (no (unknown) (unknown) Const (units (unkno wn) date) unknown) (unknown) (no (unknown) (unknown) Constipation (units (u nknown) date) unknown) (unknown) (no (unknown) (unknown) : 1965 (units (unknown) date) Acct:[id number] unknown) (unknown) (no (unknown) (unknown) Denies chest (units (u nknown) date) pain, chills, unknown) altered mental status, wheezing, stridor, residual (unknown) (no (unknown) (unknown) Dept at (units (unkno wn) date) . unknown) (unknown) (no (unknown) (unknown) Details: (units (unkno wn) date) unknown) (unknown) (no (unknown) (unknown) Discontinued (units (u nknown) date) Reason: Patient no unknown) longer taking 150 mg PO Q3D 2 tabs 0RF (unknown) (no (unknown) (unknown) Discontinued (units (u nknown) date) unknown) (unknown) (no (unknown) (unknown) Documented By: (units (unknown) date) Rocco Pyle MD unknown) 12/04/21 0747 (unknown) (no (unknown) (unknown) Draft (units (unkno wn) date) unknown) (unknown) (no (unknown) (unknown) Effort + (units (unkno wn) date) Inspection: normal unknown) respiratory effort, able to speak in complete (unknown) (no (unknown) (unknown) Exam (units (unkno wn) date) unknown) (unknown) (no (unknown) (unknown) Family History (units (unknown) date) (Reviewed 09/12/21 unknown) @ 14:01 by Milka Viramontes PA-C) (unknown) (no (unknown) (unknown) Father Heart (units (u nknown) date) disease unknown) (unknown) (no (unknown) (unknown) Fibromyalgia (units (u nknown) date) unknown) (unknown) (no (unknown) (unknown) [facility] (units (unknown) date[facility] unknown) (unknown) (no (unknown) (unknown) Former smoker (units ( unknown) date) unknown) (unknown) (no (unknown) (unknown) Gastroparesis (units ( unknown) date) unknown) (unknown) (no (unknown) (unknown) General: (units (unkno wn) date) cooperative, unknown) healthy appearing, comfortable and no acute distress (unknown) (no (unknown) (unknown) Grandfather Heart (units (unknown) date) disease unknown) (unknown) (no (unknown) (unknown) Grandfather (units (un known) date) Stomach cancer unknown) (unknown) (no (unknown) (unknown) Grandmother (units (un known) date) Cancer unknown) (unknown) (no (unknown) (unknown) Greater (units (unkno wn) date) trochanteric unknown) bursitis of right hip (unknown) (no (unknown) (unknown) HIVES (units (unkno wn) date) unknown) (unknown) (no (unknown) (unknown) HPI (units (unkno wn) date) unknown) (unknown) (no (unknown) (unknown) Health Management (units (unknown) date) reviewed with unknown) patient: Yes (unknown) (no (unknown) (unknown) Health Management (units (unknown) date) unknown) (unknown) (no (unknown) (unknown) Heart murmur (units (u nknown) date) unknown) (unknown) (no (unknown) (unknown) Height 5 ft 6.5 (units (unknown) date) in unknown) (unknown) (no (unknown) (unknown) History of foot (units (unknown) date) surgery (08/2015) unknown) (unknown) (no (unknown) (unknown) History of (units (unk nown) date) pneumonia unknown) (unknown) (no (unknown) (unknown) History of third (units (unknown) date) molar tooth unknown) extraction (1984) (unknown) (no (unknown) (unknown) History of (units (unk nown) date) thyroidectomy unknown) (07/11/14) (unknown) (no (unknown) (unknown) Instructions (units (u nknown) date) .Route .COMPLEX unknown) #112 tabs 11/12/21 [Rx Confirmed 12/04/21] (unknown) (no (unknown) (unknown) Intake Note: (units (u nknown) date) unknown) (unknown) (no (unknown) (unknown) Intake performed (units (unknown) date) by: Marleen Tamayo unknown) (unknown) (no (unknown) (unknown) Intake (units (unkno wn) date) unknown) (unknown) (no (unknown) (unknown) Intake- Clincial (units (unknown) date) Staff unknown) (unknown) (no (unknown) (unknown) Internal Medicine (units (unknown) date) Office Visit unknown) (unknown) (no (unknown) (unknown) Judgment: (units (unkn own) date) judgment good unknown) (unknown) (no (unknown) (unknown) Last Menstural (units (unknown) date) Cycle + Details unknown) (unknown) (no (unknown) (unknown) Loc: [facility] (units (unkno wn) date) unknown) (unknown) (no (unknown) (unknown) Low blood sugar (units (unknown) date) unknown) (unknown) (no (unknown) (unknown) MM screening (units (u nknown) date) mammo BI 1 Month unknown) Z12.31 - Encounter for screening mammogram for (unknown) (no (unknown) (unknown) 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) () (unknown) (no (unknown) (unknown) Medical History (units (unknown) date) (Reviewed 09/12/21 unknown) @ 14:01 by Milka Viramontes PA-C) (unknown) (no (unknown) (unknown) Medications (units (un known) date) unknown) (unknown) (no (unknown) (unknown) Medications: (units (u nknown) date) unknown) (unknown) (no (unknown) (unknown) Menstrual (units (unkn own) date) migraine, not unknown) intractable, without status migrainosus (unknown) (no (unknown) (unknown) Mental Status: (units (unknown) date) mental status unknown) grossly normal (unknown) (no (unknown) (unknown) Migraines (units (unkn own) date) unknown) (unknown) (no (unknown) (unknown) Mood: congruent (units (unknown) date) mood unknown) (unknown) (no (unknown) (unknown) Mother Stroke (units ( unknown) date) unknown) (unknown) (no (unknown) (unknown) Ms. Britton is here (units (unknown) date) to discuss to unknown) unrelated problems. We talked about the (unknown) (no (unknown) (unknown) NAUSEA (units (unkno wn) date) unknown) (unknown) (no (unknown) (unknown) Nutritional (units (un known) date) Appearance: unknown) overweight (unknown) (no (unknown) (unknown) Orders (units (unkno wn) date) unknown) (unknown) (no (unknown) (unknown) Orders: (units (unkno wn) date) unknown) (unknown) (no (unknown) (unknown) Orientation: (units (u nknown) date) oriented x3 unknown) (unknown) (no (unknown) (unknown) Osteoarthritis (units (unknown) date) unknown) (unknown) (no (unknown) (unknown) Other Menstrual (units (unknown) date) Period: unknown) Postmenopausal (unknown) (no (unknown) (unknown) Overheating: (units (u nknown) date) Describes a series unknown) of episodes of seeming to overheat with minimal (unknown) (no (unknown) (unknown) Oxygen Delivery (units (unknown) date) Method room air unknown) (unknown) (no (unknown) (unknown) PFSH (units (unkno wn) date) unknown) (unknown) (no (unknown) (unknown) PRN 08/24/19 (units (u nknown) date) [History Confirmed unknown) 12/04/21] (unknown) (no (unknown) (unknown) Patient: (units (unkno wn) date) Yolanda Britton unknown) MR#: [id number] (unknown) (no (unknown) (unknown) Piriformis (units (unk nown) date) syndrome unknown) (unknown) (no (unknown) (unknown) Position Sitting (units (unknown) date) unknown) (unknown) (no (unknown) (unknown) Psych (units (unkno wn) date) unknown) (unknown) (no (unknown) (unknown) Pulse 87 (units (unkno wn) date) unknown) (unknown) (no (unknown) (unknown) Pulse Oximetry (units (unknown) date) (%) 97 unknown) (unknown) (no (unknown) (unknown) Pulse Source (units (u nknown) date) Monitor unknown) (unknown) (no (unknown) (unknown) ROS (units (unkno wn) date) unknown) (unknown) (no (unknown) (unknown) Reason For Visit (units (unknown) date) unknown) (unknown) (no (unknown) (unknown) Records are not (units (unknown) date) easily available unknown) and she does not have details. Each episode is (unknown) (no (unknown) (unknown) Resp (units (unkno wn) date) unknown) (unknown) (no (unknown) (unknown) SENSITIVE TO (units (u nknown) date) NARCOTICS Allergy unknown) (Severe, Uncoded 12/04/21 16:07) (unknown) (no (unknown) (unknown) SUBCUT QMONTH (units ( unknown) date) 06/13/21 [History unknown) Confirmed 12/04/21] (unknown) (no (unknown) (unknown) Sacral (units (unkno wn) date) dysfunction unknown) (unknown) (no (unknown) (unknown) She has not (units (un known) date) measured her unknown) temperature in the middle of 1 of these episodes. (unknown) (no (unknown) (unknown) Signed By: (units (unk nown) date) unknown) (unknown) (no (unknown) (unknown) Smoking Status: (units (unknown) date) Former smoker unknown) (unknown) (no (unknown) (unknown) Social History (units (unknown) date) unknown) (unknown) (no (unknown) (unknown) Speech and (units (unk nown) date) Movement: speech unknown) and movement normal (unknown) (no (unknown) (unknown) Status post (units (un known) date) endometrial unknown) ablation (07/11/14) (unknown) (no (unknown) (unknown) Status post (units (un known) date) laparoscopy (1982) unknown) (unknown) (no (unknown) (unknown) Status post (units (un known) date) laparoscopy (2001) unknown) (unknown) (no (unknown) (unknown) Sulfa (units (unkno wn) date) (Sulfonamide unknown) Antibiotics) [SULFA (SULFONAMIDE ANTIBIOTICS)] Allergy (unknown) (no (unknown) (unknown) Surgical History (units (unknown) date) (Reviewed 09/12/21 unknown) @ 14:01 by Milka Viramontes PA-C) (unknown) (no (unknown) (unknown) Tear of (units (unkno wn) date) acetabular labrum unknown) (unknown) (no (unknown) (unknown) This note may (units ( unknown) date) have been all or unknown) partially generated using voice recognition (unknown) (no (unknown) (unknown) Thought Content: (units (unknown) date) normal unknown) (unknown) (no (unknown) (unknown) Thought Process: (units (unknown) date) normal unknown) (unknown) (no (unknown) (unknown) Tobacco + (units (unkn own) date) Substance Use unknown) (unknown) (no (unknown) (unknown) Tobacco Status (units (unknown) date) unknown) (unknown) (no (unknown) (unknown) Visit Reasons: (units (unknown) date) another blood shot unknown) eye, and over heating 08 (unknown) (no (unknown) (unknown) Vitals (units (unkno wn) date) unknown) (unknown) (no (unknown) (unknown) Weight 223 lb (units ( unknown) date) unknown) (unknown) (no (unknown) (unknown) alcohol intake: (units (unknown) date) current unknown) (unknown) (no (unknown) (unknown) another blood (units ( unknown) date) shot eye - this unknown) 5th time in 4moths now today its better and she (unknown) (no (unknown) (unknown) characterized by (units (unknown) date) flushing of the unknown) face/neck/chest, profuse sweating, and fatigue. (unknown) (no (unknown) (unknown) cholecalciferol (units (unknown) date) (vitamin D3) 25 unknown) mcg (1,000 unit) capsule 1,000 unit PO DAILY (unknown) (no (unknown) (unknown) clear inciting (units (unknown) date) event, injury, or unknown) new exposure. This has happened about 5 times (unknown) (no (unknown) (unknown) codeine [CODEINE] (units (unknown) date) Allergy (Mild, unknown) Verified 12/04/21 16:07) (unknown) (no (unknown) (unknown) couple of weeks. (units (unknown) date) No vision changes unknown) or pain. Patient is currently on long-term (unknown) (no (unknown) (unknown) cscope- she will (units (unknown) date) check with her GI unknown) (unknown) (no (unknown) (unknown) cyclobenzaprine 10 (units (unknown) date) mg tablet 10 mg PO unknown) TID PRN muscle spasm #21 tabs 10/25/21 [Rx (unknown) (no (unknown) (unknown) describes an (units (u nknown) date) episode that unknown) looked like this following anesthesia in 2014. (unknown) (no (unknown) (unknown) diphenhydramine (units (unknown) date) 25 unknown) mg-acetaminophen 500 mg tablet (Tylenol PM Extra Strength) 1 (unknown) (no (unknown) (unknown) diphenhydramine-a (units (unknown) date) cetaminophen unknown) [Tylenol PM] PO BEDTIME 03/09/19 [History (unknown) (no (unknown) (unknown) doxylamine (units (unk nown) date) succinate 25 mg unknown) tablet (Unisom (doxylamine)) 25 mg PO BEDTIME PRN (unknown) (no (unknown) (unknown) exertion. This (units (unknown) date) started in spring unknown) with no clear inciting event. Potentially (unknown) (no (unknown) (unknown) eye support PO (units (unknown) date) 11/27/20 [History unknown) Confirmed 12/04/21] (unknown) (no (unknown) (unknown) fluconazole (units (un known) date) unknown) (unknown) (no (unknown) (unknown) following topics: (units (unknown) date) unknown) (unknown) (no (unknown) (unknown) from vasomotor (units (unknown) date) symptoms of unknown) menopause and that she is currently on hormone (unknown) (no (unknown) (unknown) galcanezumab-gnlm (units (unknown) date) 120 mg/mL unknown) subcutaneous pen injector (Emgality Pen) 120 mg (unknown) (no (unknown) (unknown) has an appt with (units (unknown) date) eye dr with in 2 unknown) weeks lt eye (unknown) (no (unknown) (unknown) have occurred. If (units (unknown) date) there are any unknown) questions, please contact the Medical Records (unknown) (no (unknown) (unknown) household (units (unkn own) date) members: none unknown) (unknown) (no (unknown) (unknown) in the last 4 (units ( unknown) date) months or so. 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 (units (unk nown) date) Occasional unknown) wrong-word or 'sound-alike' substitutions may have (unknown) (no (unknown) (unknown) mecobalamin (units (un known) date) (vitamin B12) unknown) 1,000 mcg disintegrating tablet,sublingual 1,000 mcg (unknown) (no (unknown) (unknown) melatonin 10 mg (units (unknown) date) capsule 5 mg PO unknown) BEDTIME Sleep 08/24/19 [History Confirmed (unknown) (no (unknown) (unknown) occupational (units (u nknown) date) status: employed unknown) (unknown) (no (unknown) (unknown) occurred due to (units (unknown) date) the inherent unknown) limitations of voice recognition software. Please (unknown) (no (unknown) (unknown) over heating- (units ( unknown) date) this is not unknown) menopause or the heat, she could have fans on her and (unknown) (no (unknown) (unknown) pantoprazole 20 (units (unknown) date) mg tablet,delayed unknown) release 20 mg PO DAILY 05/10/19 [History (unknown) (no (unknown) (unknown) polyethylene (units (u nknown) date) glycol 3350 17 unknown) gram oral powder packet (Miralax) 17 gram PO DAILY (unknown) (no (unknown) (unknown) prednisone 10 mg (units (unknown) date) tablet 5 mg PO unknown) DAILY 03/06/21 [History Confirmed 12/04/21] (unknown) (no (unknown) (unknown) prednisone (units (unk nown) date) therapy. unknown) (unknown) (no (unknown) (unknown) read the note (units ( unknown) date) carefully and unknown) recognize, using context, where these substitutions (unknown) (no (unknown) (unknown) ref Podiatry- snw (units (unknown) date) told her they dont unknown) take her insurance. will need to do new (unknown) (no (unknown) (unknown) referral to mt (units (unknown) date) leslye. unknown) (unknown) (no (unknown) (unknown) relevant history (units (unknown) date) includes having unknown) started Emg[facility] about 1 year ago. She also (unknown) (no (unknown) (unknown) replacement (units (un known) date) therapy that has unknown) been consistent throughout this period of time. (unknown) (no (unknown) (unknown) rizatriptan 10 mg (units (unknown) date) tablet (Maxalt) 10 unknown) mg PO Q2H PRN Migraine Headache #9 tabs (unknown) (no (unknown) (unknown) sentences and no (units (unknown) date) audible wheezes unknown) (unknown) (no (unknown) (unknown) she is still (units (u nknown) date) sweating mostly on unknown) face and head, face turns very red no nausea (unknown) (no (unknown) (unknown) shingles- [facility] (units (unknown) date) [place] unknown) (unknown) (no (unknown) (unknown) software. (units (unkn own) date) Although every unknown) effort is made to edit content, wink cutter operator errors (unknown) (no (unknown) (unknown) sublingual DAILY (units (unknown) date) 05/10/19 [History unknown) Confirmed 12/04/21] (unknown) (no (unknown) (unknown) substance use (units ( unknown) date) type: does not use unknown) (unknown) (no (unknown) (unknown) symptoms after (units (unknown) date) the episode unknown) resolved. She says that these symptoms are distinct (unknown) (no (unknown) (unknown) tab PO BEDTIME (units (unknown) date) PRN Sleep 11/17/17 unknown) [History Confirmed 12/04/21] (unknown) (no (unknown) (unknown) td- at [facility] may be (units (unknown) date) utd unknown) (unknown) (no (unknown) (unknown) vomiting, or (units (u nknown) date) dizziness unknown) Result panel 15 (unknown) (no (unknown) (unknown) (no value) (units (unk nown) date) unknown) (unknown) (no (unknown) (unknown) (1) Sweating: (units ( unknown) date) unknown) (unknown) (no (unknown) (unknown) (2) Conjunctival (units (unknown) date) hemorrhage of left unknown) eye: (unknown) (no (unknown) (unknown) (Severe, Verified (units (unknown) date) 12/04/21 16:07) unknown) (unknown) (no (unknown) (unknown) [id number] (units (unkno wn) date) unknown) (unknown) (no (unknown) (unknown) 11/17/17 [History (units (unknown) date) Confirmed unknown) 12/04/21] (unknown) (no (unknown) (unknown) 11/27/20 [History (units (unknown) date) Confirmed unknown) 12/04/21] (unknown) (no (unknown) (unknown) 12/04/21 (units (unkno wn) date) unknown) (unknown) (no (unknown) (unknown) 12/04/21] (units (unkn own) date) unknown) (unknown) (no (unknown) (unknown) 12/06/20 [Rx (units (u nknown) date) Confirmed unknown) 12/04/21] (unknown) (no (unknown) (unknown) 12/09/21 1142 (units ( unknown) date) unknown) (unknown) (no (unknown) (unknown) 16:08 (units (unkno wn) date) unknown) (unknown) (no (unknown) (unknown) 2014. I have (units (u nknown) date) asked my staff to unknown) find the associated operative or anesthesia note (unknown) (no (unknown) (unknown) Accompanied by: (units (unknown) date) Self / Same As unknown) Patient (unknown) (no (unknown) (unknown) Affect: normal (units (unknown) date) affect unknown) (unknown) (no (unknown) (unknown) Age/Sex: 56 / F (units (unknown) date) Date of Service: unknown) (unknown) (no (unknown) (unknown) All systems (units (un known) date) reviewed + are unknown) unremarkable except as noted in HPI and below (unknown) (no (unknown) (unknown) Allergies (units (unkn own) date) unknown) (unknown) (no (unknown) (unknown) [place], [place] (units ( unknown) date) [id number] unknown) (unknown) (no (unknown) (unknown) Appearance: (units (un known) date) grossly normal unknown) (unknown) (no (unknown) (unknown) Arthritis (units (unkn own) date) unknown) (unknown) (no (unknown) (unknown) Assessment + Plan (units (unknown) date) unknown) (unknown) (no (unknown) (unknown) Asthma (units (unkno wn) date) unknown) (unknown) (no (unknown) (unknown) Attending Dr: (units ( unknown) date) Rocco Pyle MD unknown) (unknown) (no (unknown) (unknown) Attitude: (units (unkn own) date) cooperative unknown) (unknown) (no (unknown) (unknown) BMI 35.4 (units (unkno wn) date) unknown) (unknown) (no (unknown) (unknown) BP 132/89 (units (unkn own) date) unknown) (unknown) (no (unknown) (unknown) Blood Pressure (units (unknown) date) Location Lt unknown) brachial (unknown) (no (unknown) (unknown) Bruises easily (units (unknown) date) unknown) (unknown) (no (unknown) (unknown) Chief Complaint (units (unknown) date) unknown) (unknown) (no (unknown) (unknown) Chief Complaint: (units (unknown) date) Multiple concerns unknown) (unknown) (no (unknown) (unknown) Confirmed (units (unkn own) date) 12/04/21] unknown) (unknown) (no (unknown) (unknown) Conjunctival (units (un known) date) hemorrhage is unknown) almost certainly a result of the prednisone and seems (unknown) (no (unknown) (unknown) Conjunctival (units (u nknown) date) hemorrhage: unknown) Experienced a blood shot eye on the left side with no (unknown) (no (unknown) (unknown) Const (units (unkno wn) date) unknown) (unknown) (no (unknown) (unknown) Constipation (units (u nknown) date) unknown) (unknown) (no (unknown) (unknown) : 1965 (units (unknown) date) Acct:[id number] unknown) (unknown) (no (unknown) (unknown) Denies chest (units (u nknown) date) pain, chills, unknown) altered mental status, wheezing, stridor, residual (unknown) (no (unknown) (unknown) Dept at (units (unkno wn) date) . unknown) (unknown) (no (unknown) (unknown) Details: (units (unkno wn) date) unknown) (unknown) (no (unknown) (unknown) Discontinued (units (u nknown) date) Reason: Patient no unknown) longer taking 150 mg PO Q3D 2 tabs 0RF (unknown) (no (unknown) (unknown) Discontinued (units (u nknown) date) unknown) (unknown) (no (unknown) (unknown) Documented By: (units (unknown) date) Rocco Pyle MD unknown) 12/04/21 0747 (unknown) (no (unknown) (unknown) Effort + (units (unkno wn) date) Inspection: normal unknown) respiratory effort, able to speak in complete (unknown) (no (unknown) (unknown) Exam (units (unkno wn) date) unknown) (unknown) (no (unknown) (unknown) Family History (units (unknown) date) (Reviewed 09/12/21 unknown) @ 14:01 by Milka Viramontes PA-C) (unknown) (no (unknown) (unknown) Father Heart (units (u nknown) date) disease unknown) (unknown) (no (unknown) (unknown) Fibromyalgia (units (u nknown) date) unknown) (unknown) (no (unknown) (unknown) [facility]) (unknown) (no (unknown) (unknown) Former smoker (units ( unknown) date) unknown) (unknown) (no (unknown) (unknown) Gastroparesis (units ( unknown) date) unknown) (unknown) (no (unknown) (unknown) General: (units (unkno wn) date) cooperative, unknown) healthy appearing, comfortable and no acute distress (unknown) (no (unknown) (unknown) Grandfather Heart (units (unknown) date) disease unknown) (unknown) (no (unknown) (unknown) Grandfather (units (un known) date) Stomach cancer unknown) (unknown) (no (unknown) (unknown) Grandmother (units (un known) date) Cancer unknown) (unknown) (no (unknown) (unknown) Greater (units (unkno wn) date) trochanteric unknown) bursitis of right hip (unknown) (no (unknown) (unknown) HIVES (units (unkno wn) date) unknown) (unknown) (no (unknown) (unknown) HPI (units (unkno wn) date) unknown) (unknown) (no (unknown) (unknown) Health Management (units (unknown) date) reviewed with unknown) patient: Yes (unknown) (no (unknown) (unknown) Health Management (units (unknown) date) unknown) (unknown) (no (unknown) (unknown) Heart murmur (units (u nknown) date) unknown) (unknown) (no (unknown) (unknown) Height 5 ft 6.5 (units (unknown) date) in unknown) (unknown) (no (unknown) (unknown) History of foot (units (unknown) date) surgery (08/2015) unknown) (unknown) (no (unknown) (unknown) History of (units (unk nown) date) pneumonia unknown) (unknown) (no (unknown) (unknown) History of third (units (unknown) date) molar tooth unknown) extraction (1984) (unknown) (no (unknown) (unknown) History of (units (unk nown) date) thyroidectomy unknown) (07/11/14) (unknown) (no (unknown) (unknown) Instructions (units (u nknown) date) .Route .COMPLEX unknown) #112 tabs 11/12/21 [Rx Confirmed 12/04/21] (unknown) (no (unknown) (unknown) Intake Note: (units (u nknown) date) unknown) (unknown) (no (unknown) (unknown) Intake performed (units (unknown) date) by: Marleen Tamayo unknown) (unknown) (no (unknown) (unknown) Intake (units (unkno wn) date) unknown) (unknown) (no (unknown) (unknown) Intake- Clincial (units (unknown) date) Staff unknown) (unknown) (no (unknown) (unknown) Internal Medicine (units (unknown) date) Office Visit unknown) (unknown) (no (unknown) (unknown) Judgment: (units (unkn own) date) judgment good unknown) (unknown) (no (unknown) (unknown) Last Menstural (units (unknown) date) Cycle + Details unknown) (unknown) (no (unknown) (unknown) Loc: [facility] (units (unkno wn) date) unknown) (unknown) (no (unknown) (unknown) Low blood sugar (units (unknown) date) unknown) (unknown) (no (unknown) (unknown) MM screening (units (u nknown) date) mammo BI 1 Month unknown) Z12.31 - Encounter for screening mammogram for (unknown) (no (unknown) (unknown) 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) (unknown) (no (unknown) (unknown) Medical History (units (unknown) date) (Reviewed 09/12/21 unknown) @ 14:01 by Milka Viramontes PA-C) (unknown) (no (unknown) (unknown) Medications (units (un known) date) unknown) (unknown) (no (unknown) (unknown) Medications: (units (u nknown) date) unknown) (unknown) (no (unknown) (unknown) Menstrual (units (unkn own) date) migraine, not unknown) intractable, without status migrainosus (unknown) (no (unknown) (unknown) Mental Status: (units (unknown) date) mental status unknown) grossly normal (unknown) (no (unknown) (unknown) Migraines (units (unkn own) date) unknown) (unknown) (no (unknown) (unknown) Mood: congruent (units (unknown) date) mood unknown) (unknown) (no (unknown) (unknown) Mother Stroke (units ( unknown) date) unknown) (unknown) (no (unknown) (unknown) Ms. Britton is here (units (unknown) date) to discuss to unknown) unrelated problems. We talked about the (unknown) (no (unknown) (unknown) NAUSEA (units (unkno wn) date) unknown) (unknown) (no (unknown) (unknown) Nutritional (units (un known) date) Appearance: unknown) overweight (unknown) (no (unknown) (unknown) Orders (units (unkno wn) date) unknown) (unknown) (no (unknown) (unknown) Orders: (units (unkno wn) date) unknown) (unknown) (no (unknown) (unknown) Orientation: (units (u nknown) date) oriented x3 unknown) (unknown) (no (unknown) (unknown) Osteoarthritis (units (unknown) date) unknown) (unknown) (no (unknown) (unknown) Other Menstrual (units (unknown) date) Period: unknown) Postmenopausal (unknown) (no (unknown) (unknown) Overheating: (units (u nknown) date) Describes a series unknown) of episodes of seeming to overheat with minimal (unknown) (no (unknown) (unknown) Oxygen Delivery (units (unknown) date) Method room air unknown) (unknown) (no (unknown) (unknown) PFSH (units (unkno wn) date) unknown) (unknown) (no (unknown) (unknown) PRN 08/24/19 (units (u nknown) date) [History Confirmed unknown) 12/04/21] (unknown) (no (unknown) (unknown) Patient: (units (unkno wn) date) TobiYolanda unknown) MR#: [id number] (unknown) (no (unknown) (unknown) Piriformis (units (unk nown) date) syndrome unknown) (unknown) (no (unknown) (unknown) Plan (units (unkno wn) date) unknown) (unknown) (no (unknown) (unknown) Position Sitting (units (unknown) date) unknown) (unknown) (no (unknown) (unknown) Psych (units (unkno wn) date) unknown) (unknown) (no (unknown) (unknown) Pulse 87 (units (unkno wn) date) unknown) (unknown) (no (unknown) (unknown) Pulse Oximetry (units (unknown) date) (%) 97 unknown) (unknown) (no (unknown) (unknown) Pulse Source (units (u nknown) date) Monitor unknown) (unknown) (no (unknown) (unknown) ROS (units (unkno wn) date) unknown) (unknown) (no (unknown) (unknown) Reason For Visit (units (unknown) date) unknown) (unknown) (no (unknown) (unknown) Records are not (units (unknown) date) easily available unknown) and she does not have details. Each episode is (unknown) (no (unknown) (unknown) Resp (units (unkno wn) date) unknown) (unknown) (no (unknown) (unknown) SENSITIVE TO (units (u nknown) date) NARCOTICS Allergy unknown) (Severe, Uncoded 12/04/21 16:07) (unknown) (no (unknown) (unknown) SUBCUT QMONTH (units ( unknown) date) 06/13/21 [History unknown) Confirmed 12/04/21] (unknown) (no (unknown) (unknown) Sacral (units (unkno wn) date) dysfunction unknown) (unknown) (no (unknown) (unknown) She has not (units (un known) date) measured her unknown) temperature in the middle of 1 of these episodes. (unknown) (no (unknown) (unknown) Signed By: (units (unk nown) date) <Electronically unknown) signed by Rocco Pyle MD> (unknown) (no (unknown) (unknown) Signed (units (unkno wn) date) unknown) (unknown) (no (unknown) (unknown) Smoking Status: (units (unknown) date) Former smoker unknown) (unknown) (no (unknown) (unknown) Social History (units (unknown) date) unknown) (unknown) (no (unknown) (unknown) Speech and (units (unk nown) date) Movement: speech unknown) and movement normal (unknown) (no (unknown) (unknown) Status post (units (un known) date) endometrial unknown) ablation (07/11/14) (unknown) (no (unknown) (unknown) Status post (units (un known) date) laparoscopy (1982) unknown) (unknown) (no (unknown) (unknown) Status post (units (un known) date) laparoscopy (2001) unknown) (unknown) (no (unknown) (unknown) Status: Acute (units ( unknown) date) unknown) (unknown) (no (unknown) (unknown) Sulfa (units (unkno wn) date) (Sulfonamide unknown) Antibiotics) [SULFA (SULFONAMIDE ANTIBIOTICS)] Allergy (unknown) (no (unknown) (unknown) Surgical History (units (unknown) date) (Reviewed 09/12/21 unknown) @ 14:01 by Milka Viramontes PA-C) (unknown) (no (unknown) (unknown) Sweating, (units (unkn own) date) flushing episodes unknown) are of unclear etiology. We discussed several (unknown) (no (unknown) (unknown) Tear of (units (unkno wn) date) acetabular labrum unknown) (unknown) (no (unknown) (unknown) This note may (units ( unknown) date) have been all or unknown) partially generated using voice recognition (unknown) (no (unknown) (unknown) Thought Content: (units (unknown) date) normal unknown) (unknown) (no (unknown) (unknown) Thought Process: (units (unknown) date) normal unknown) (unknown) (no (unknown) (unknown) Thyroid status (units (unknown) date) was reassessed in unknown) February as mildly hyperthyroid. Fasting blood (unknown) (no (unknown) (unknown) Tobacco + (units (unkn own) date) Substance Use unknown) (unknown) (no (unknown) (unknown) Tobacco Status (units (unknown) date) unknown) (unknown) (no (unknown) (unknown) Visit Reasons: (units (unknown) date) another blood shot unknown) eye, and over heating 08 (unknown) (no (unknown) (unknown) Vitals (units (unkno wn) date) unknown) (unknown) (no (unknown) (unknown) Weight 223 lb (units ( unknown) date) unknown) (unknown) (no (unknown) (unknown) alcohol intake: (units (unknown) date) current unknown) (unknown) (no (unknown) (unknown) another blood (units ( unknown) date) shot eye - this unknown) 5th time in 4moths now today its better and she (unknown) (no (unknown) (unknown) characterized by (units (unknown) date) flushing of the unknown) face/neck/chest, profuse sweating, and fatigue. (unknown) (no (unknown) (unknown) cholecalciferol (units (unknown) date) (vitamin D3) 25 unknown) mcg (1,000 unit) capsule 1,000 unit PO DAILY (unknown) (no (unknown) (unknown) clear inciting (units (unknown) date) event, injury, or unknown) new exposure. This has happened about 5 times (unknown) (no (unknown) (unknown) codeine [CODEINE] (units (unknown) date) Allergy (Mild, unknown) Verified 12/04/21 16:07) (unknown) (no (unknown) (unknown) consistent (units (unk nown) date) patterns. It is unknown) probably worth another conversation with ob/gyn physician (unknown) (no (unknown) (unknown) couple of weeks. (units (unknown) date) No vision changes unknown) or pain. Patient is currently on long-term (unknown) (no (unknown) (unknown) cscope- she will (units (unknown) date) check with her GI unknown) dr (unknown) (no (unknown) (unknown) cyclobenzaprine 10 (units (unknown) date) mg tablet 10 mg PO unknown) TID PRN muscle spasm #21 tabs 10/25/21 [Rx (unknown) (no (unknown) (unknown) describes an (units (u nknown) date) episode that unknown) looked like this following anesthesia in 2014. (unknown) (no (unknown) (unknown) despite use of (units (unknown) date) prednisone. I am a unknown) little disturbed by the similarity between (unknown) (no (unknown) (unknown) detailed log of (units (unknown) date) symptoms, unknown) especially with attention to any potential triggers or (unknown) (no (unknown) (unknown) diphenhydramine (units (unknown) date) 25 unknown) mg-acetaminophen 500 mg tablet (Tylenol PM Extra Strength) 1 (unknown) (no (unknown) (unknown) diphenhydramine-a (units (unknown) date) cetaminophen unknown) [Tylenol PM] PO BEDTIME 03/09/19 [History (unknown) (no (unknown) (unknown) doxylamine (units (unk nown) date) succinate 25 mg unknown) tablet (Unisom (doxylamine)) 25 mg PO BEDTIME PRN (unknown) (no (unknown) (unknown) exertion. This (units (unknown) date) started in spring unknown) with no clear inciting event. Potentially (unknown) (no (unknown) (unknown) eye support PO (units (unknown) date) 11/27/20 [History unknown) Confirmed 12/04/21] (unknown) (no (unknown) (unknown) fluconazole (units (un known) date) unknown) (unknown) (no (unknown) (unknown) following topics: (units (unknown) date) unknown) (unknown) (no (unknown) (unknown) from vasomotor (units (unknown) date) symptoms of unknown) menopause and that she is currently on hormone (unknown) (no (unknown) (unknown) galcanezumab (units (u nknown) date) prescribing unknown) information and associated medical literature does not (unknown) (no (unknown) (unknown) galcanezumab-gnlm (units (unknown) date) 120 mg/mL unknown) subcutaneous pen injector (Emgality Pen) 120 mg (unknown) (no (unknown) (unknown) glucose has been (units (unknown) date) normal over the unknown) last several times that we have assess this, (unknown) (no (unknown) (unknown) has an appt with (units (unknown) date) eye dr with in 2 unknown) weeks lt eye (unknown) (no (unknown) (unknown) have occurred. If (units (unknown) date) there are any unknown) questions, please contact the Medical Records (unknown) (no (unknown) (unknown) her described (units ( unknown) date) symptoms and the unknown) episode following recovery from anesthesia in (unknown) (no (unknown) (unknown) household (units (unkn own) date) members: none unknown) (unknown) (no (unknown) (unknown) ignore the (units (unk nown) date) similarity between unknown) her described symptoms and classic vasomotor (unknown) (no (unknown) (unknown) in the last 4 (units ( unknown) date) months or so. 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 (units (unk nown) date) Occasional unknown) wrong-word or 'sound-alike' substitutions may have (unknown) (no (unknown) (unknown) mecobalamin (units (un known) date) (vitamin B12) unknown) 1,000 mcg disintegrating tablet,sublingual 1,000 mcg (unknown) (no (unknown) (unknown) melatonin 10 mg (units (unknown) date) capsule 5 mg PO unknown) BEDTIME Sleep 08/24/19 [History Confirmed (unknown) (no (unknown) (unknown) menopausal (units (unk nown) date) symptoms, no unknown) matter how much she denies that this is what is going (unknown) (no (unknown) (unknown) occupational (units (u nknown) date) status: employed unknown) (unknown) (no (unknown) (unknown) occurred due to (units (unknown) date) the inherent unknown) limitations of voice recognition software. Please (unknown) (no (unknown) (unknown) on. (units (unkno wn) date) unknown) (unknown) (no (unknown) (unknown) over heating- (units ( unknown) date) this is not unknown) menopause or the heat, she could have fans on her and (unknown) (no (unknown) (unknown) pantoprazole 20 (units (unknown) date) mg tablet,delayed unknown) release 20 mg PO DAILY 05/10/19 [History (unknown) (no (unknown) (unknown) polyethylene (units (u nknown) date) glycol 3350 17 unknown) gram oral powder packet (Miralax) 17 gram PO DAILY (unknown) (no (unknown) (unknown) possibilities (units ( unknown) date) including unknown) vasomotor symptoms, malignant hyperthermia, medication (unknown) (no (unknown) (unknown) prednisone 10 mg (units (unknown) date) tablet 5 mg PO unknown) DAILY 03/06/21 [History Confirmed 12/04/21] (unknown) (no (unknown) (unknown) prednisone (units (unk nown) date) therapy. unknown) (unknown) (no (unknown) (unknown) reaction, and (units ( unknown) date) anxiety. unknown) Recommended that she take her temperature during 1 of (unknown) (no (unknown) (unknown) read the note (units ( unknown) date) carefully and unknown) recognize, using context, where these substitutions (unknown) (no (unknown) (unknown) ref Podiatry- snw (units (unknown) date) told her they dont unknown) take her insurance. will need to do new (unknown) (no (unknown) (unknown) referral to mt (units (unknown) date) leslye. unknown) (unknown) (no (unknown) (unknown) regarding her (units ( unknown) date) ongoing hormone unknown) replacement therapy, because it is difficult to (unknown) (no (unknown) (unknown) related to this (units (unknown) date) procedure to see unknown) if it is relevant. Asked the patient to keep a (unknown) (no (unknown) (unknown) relevant history (units (unknown) date) includes having unknown) started Emgality about 1 year ago. She also (unknown) (no (unknown) (unknown) replacement (units (un known) date) therapy that has unknown) been consistent throughout this period of time. (unknown) (no (unknown) (unknown) rizatriptan 10 mg (units (unknown) date) tablet (Maxalt) 10 unknown) mg PO Q2H PRN Migraine Headache #9 tabs (unknown) (no (unknown) (unknown) sentences and no (units (unknown) date) audible wheezes unknown) (unknown) (no (unknown) (unknown) she is still (units (u nknown) date) sweating mostly on unknown) face and head, face turns very red no nausea (unknown) (no (unknown) (unknown) shingles- [facility] (units (unknown) date) [place] unknown) (unknown) (no (unknown) (unknown) software. (units (unkn own) date) Although every unknown) effort is made to edit content, wink cutter operator errors (unknown) (no (unknown) (unknown) sublingual DAILY (units (unknown) date) 05/10/19 [History unknown) Confirmed 12/04/21] (unknown) (no (unknown) (unknown) substance use (units ( unknown) date) type: does not use unknown) (unknown) (no (unknown) (unknown) symptoms after (units (unknown) date) the episode unknown) resolved. She says that these symptoms are distinct (unknown) (no (unknown) (unknown) symptoms. It also (units (unknown) date) does not seem to unknown) interact very much with other medications. (unknown) (no (unknown) (unknown) tab PO BEDTIME (units (unknown) date) PRN Sleep 11/17/17 unknown) [History Confirmed 12/04/21] (unknown) (no (unknown) (unknown) td- at [facility] may be (units (unknown) date) utd unknown) (unknown) (no (unknown) (unknown) these episodes to (units (unknown) date) see if she was unknown) objectively hot or not. In-depth review of (unknown) (no (unknown) (unknown) think this is a (units (unknown) date) low risk situation unknown) for the time being. (unknown) (no (unknown) (unknown) to have largely (units (unknown) date) resolved. I agree unknown) with following up with Ophthalmology, but I (unknown) (no (unknown) (unknown) turn up any (units (un known) date) indication at all unknown) that this med is capable of causing similar (unknown) (no (unknown) (unknown) vomiting, or (units (u nknown) date) dizziness unknown) Result panel 16 (unknown) (no (unknown) (unknown) (no value) (units (unk nown) date) unknown) (unknown) (no (unknown) (unknown) (1) Sweating: (units ( unknown) date) unknown) (unknown) (no (unknown) (unknown) (2) Conjunctival (units (unknown) date) hemorrhage of left unknown) eye: (unknown) (no (unknown) (unknown) (Severe, Verified (units (unknown) date) 12/04/21 16:07) unknown) (unknown) (no (unknown) (unknown) ADDENDUM (units (u nknown) date) unknown) (unknown) (no (unknown) (unknown) [id number] (units (unkno wn) date) unknown) (unknown) (no (unknown) (unknown) 11/17/17 [History (units (unknown) date) Confirmed unknown) 12/04/21] (unknown) (no (unknown) (unknown) 11/27/20 [History (units (unknown) date) Confirmed unknown) 12/04/21] (unknown) (no (unknown) (unknown) 12/04/21 (units (unkno wn) date) unknown) (unknown) (no (unknown) (unknown) 12/04/21] (units (unkn own) date) unknown) (unknown) (no (unknown) (unknown) 12/06/20 [Rx (units (u nknown) date) Confirmed unknown) 12/04/21] (unknown) (no (unknown) (unknown) 12/09/21 1142 (units ( unknown) date) unknown) (unknown) (no (unknown) (unknown) 12/12/21 1008 (units ( unknown) date) unknown) (unknown) (no (unknown) (unknown) 16:08 (units (unkno wn) date) unknown) (unknown) (no (unknown) (unknown) 2015. I have (units (u nknown) date) asked my staff to unknown) find the associated operative or anesthesia note (unknown) (no (unknown) (unknown) Accompanied by: (units (unknown) date) Self / Same As unknown) Patient (unknown) (no (unknown) (unknown) Addendum (units (unkno wn) date) Documented By: unknown) Rocco Pyle MD (unknown) (no (unknown) (unknown) Addendum Signed (units (unknown) date) By: unknown) <Electronically signed by Rocco Pyle MD> (unknown) (no (unknown) (unknown) Affect: normal (units (unknown) date) affect unknown) (unknown) (no (unknown) (unknown) Age/Sex: 56 / F (units (unknown) date) Date of Service: unknown) (unknown) (no (unknown) (unknown) All systems (units (un known) date) reviewed + are unknown) unremarkable except as noted in HPI and below (unknown) (no (unknown) (unknown) Allergies (units (unkn own) date) unknown) (unknown) (no (unknown) (unknown) [place], [place] (units ( unknown) date) [id number] unknown) (unknown) (no (unknown) (unknown) Appearance: (units (un known) date) grossly normal unknown) (unknown) (no (unknown) (unknown) Arthritis (units (unkn own) date) unknown) (unknown) (no (unknown) (unknown) Assessment + Plan (units (unknown) date) unknown) (unknown) (no (unknown) (unknown) Asthma (units (unkno wn) date) unknown) (unknown) (no (unknown) (unknown) Attending Dr: (units ( unknown) date) Rocco Pyle MD unknown) (unknown) (no (unknown) (unknown) Attitude: (units (unkn own) date) cooperative unknown) (unknown) (no (unknown) (unknown) BMI 35.4 (units (unkno wn) date) unknown) (unknown) (no (unknown) (unknown) BP 132/89 (units (unkn own) date) unknown) (unknown) (no (unknown) (unknown) Blood Pressure (units (unknown) date) Location Lt unknown) brachial (unknown) (no (unknown) (unknown) Bruises easily (units (unknown) date) unknown) (unknown) (no (unknown) (unknown) Chief Complaint (units (unknown) date) unknown) (unknown) (no (unknown) (unknown) Chief Complaint: (units (unknown) date) Multiple concerns unknown) (unknown) (no (unknown) (unknown) Confirmed (units (unkn own) date) 12/04/21] unknown) (unknown) (no (unknown) (unknown) Conjunctival (units (un known) date) hemorrhage is unknown) almost certainly a result of the prednisone and seems (unknown) (no (unknown) (unknown) Conjunctival (units (u nknown) date) hemorrhage: unknown) Experienced a blood shot eye on the left side with no (unknown) (no (unknown) (unknown) Const (units (unkno wn) date) unknown) (unknown) (no (unknown) (unknown) Constipation (units (u nknown) date) unknown) (unknown) (no (unknown) (unknown) : 1965 (units (unknown) date) Acct:[id number] unknown) (unknown) (no (unknown) (unknown) Denies chest (units (u nknown) date) pain, chills, unknown) altered mental status, wheezing, stridor, residual (unknown) (no (unknown) (unknown) Dept at (units (unkno wn) date) . unknown) (unknown) (no (unknown) (unknown) Details: (units (unkno wn) date) unknown) (unknown) (no (unknown) (unknown) Discontinued (units (u nknown) date) Reason: Patient no unknown) longer taking 150 mg PO Q3D 2 tabs 0RF (unknown) (no (unknown) (unknown) Discontinued (units (u nknown) date) unknown) (unknown) (no (unknown) (unknown) Documented By: (units (unknown) date) Rocco Pyle MD unknown) 12/04/21 0744 (unknown) (no (unknown) (unknown) Effort + (units (unkno wn) date) Inspection: normal unknown) respiratory effort, able to speak in complete (unknown) (no (unknown) (unknown) Exam (units (unkno wn) date) unknown) (unknown) (no (unknown) (unknown) Family History (units (unknown) date) (Reviewed 09/12/21 unknown) @ 14:01 by Milka Viramontes PA-C) (unknown) (no (unknown) (unknown) Father Heart (units (u nknown) date) disease unknown) (unknown) (no (unknown) (unknown) Fibromyalgia (units (u nknown) date) unknown) (unknown) (no (unknown) (unknown) [facility]) (unknown) (no (unknown) (unknown) Former smoker (units ( unknown) date) unknown) (unknown) (no (unknown) (unknown) Gastroparesis (units ( unknown) date) unknown) (unknown) (no (unknown) (unknown) General: (units (unkno wn) date) cooperative, unknown) healthy appearing, comfortable and no acute distress (unknown) (no (unknown) (unknown) Grandfather Heart (units (unknown) date) disease unknown) (unknown) (no (unknown) (unknown) Grandfather (units (un known) date) Stomach cancer unknown) (unknown) (no (unknown) (unknown) Grandmother (units (un known) date) Cancer unknown) (unknown) (no (unknown) (unknown) Greater (units (unkno wn) date) trochanteric unknown) bursitis of right hip (unknown) (no (unknown) (unknown) HIVES (units (unkno wn) date) unknown) (unknown) (no (unknown) (unknown) HPI (units (unkno wn) date) unknown) (unknown) (no (unknown) (unknown) Health Management (units (unknown) date) reviewed with unknown) patient: Yes (unknown) (no (unknown) (unknown) Health Management (units (unknown) date) unknown) (unknown) (no (unknown) (unknown) Heart murmur (units (u nknown) date) unknown) (unknown) (no (unknown) (unknown) Height 5 ft 6.5 (units (unknown) date) in unknown) (unknown) (no (unknown) (unknown) History of foot (units (unknown) date) surgery (08/2015) unknown) (unknown) (no (unknown) (unknown) History of (units (unk nown) date) pneumonia unknown) (unknown) (no (unknown) (unknown) History of third (units (unknown) date) molar tooth unknown) extraction (1984) (unknown) (no (unknown) (unknown) History of (units (unk nown) date) thyroidectomy unknown) (07/11/14) (unknown) (no (unknown) (unknown) Instructions (units (u nknown) date) .Route .COMPLEX unknown) #112 tabs 11/12/21 [Rx Confirmed 12/04/21] (unknown) (no (unknown) (unknown) Intake Note: (units (u nknown) date) unknown) (unknown) (no (unknown) (unknown) Intake performed (units (unknown) date) by: Marleen Tamayo unknown) (unknown) (no (unknown) (unknown) Intake (units (unkno wn) date) unknown) (unknown) (no (unknown) (unknown) Intake- Clincial (units (unknown) date) Staff unknown) (unknown) (no (unknown) (unknown) Internal Medicine (units (unknown) date) Office Visit unknown) (unknown) (no (unknown) (unknown) Judgment: (units (unkn own) date) judgment good unknown) (unknown) (no (unknown) (unknown) Last Menstural (units (unknown) date) Cycle + Details unknown) (unknown) (no (unknown) (unknown) Loc: [facility] (units (unkno wn) date) unknown) (unknown) (no (unknown) (unknown) Low blood sugar (units (unknown) date) unknown) (unknown) (no (unknown) (unknown) MM screening (units (u nknown) date) mammo BI 1 Month unknown) Z12.31 - Encounter for screening mammogram for (unknown) (no (unknown) (unknown) 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) (unknown) (no (unknown) (unknown) Medical History (units (unknown) date) (Reviewed 09/12/21 unknown) @ 14:01 by Milka Viramontes PA-C) (unknown) (no (unknown) (unknown) Medications (units (un known) date) unknown) (unknown) (no (unknown) (unknown) Medications: (units (u nknown) date) unknown) (unknown) (no (unknown) (unknown) Menstrual (units (unkn own) date) migraine, not unknown) intractable, without status migrainosus (unknown) (no (unknown) (unknown) Mental Status: (units (unknown) date) mental status unknown) grossly normal (unknown) (no (unknown) (unknown) Migraines (units (unkn own) date) unknown) (unknown) (no (unknown) (unknown) Mood: congruent (units (unknown) date) mood unknown) (unknown) (no (unknown) (unknown) Mother Stroke (units ( unknown) date) unknown) (unknown) (no (unknown) (unknown) Ms. Britton is here (units (unknown) date) to discuss to unknown) unrelated problems. We talked about the (unknown) (no (unknown) (unknown) NAUSEA (units (unkno wn) date) unknown) (unknown) (no (unknown) (unknown) Nutritional (units (un known) date) Appearance: unknown) overweight (unknown) (no (unknown) (unknown) Orders (units (unkno wn) date) unknown) (unknown) (no (unknown) (unknown) Orders: (units (unkno wn) date) unknown) (unknown) (no (unknown) (unknown) Orientation: (units (u nknown) date) oriented x3 unknown) (unknown) (no (unknown) (unknown) Osteoarthritis (units (unknown) date) unknown) (unknown) (no (unknown) (unknown) Other Menstrual (units (unknown) date) Period: unknown) Postmenopausal (unknown) (no (unknown) (unknown) Overheating: (units (u nknown) date) Describes a series unknown) of episodes of seeming to overheat with minimal (unknown) (no (unknown) (unknown) Oxygen Delivery (units (unknown) date) Method room air unknown) (unknown) (no (unknown) (unknown) PFSH (units (unkno wn) date) unknown) (unknown) (no (unknown) (unknown) PRN 08/24/19 (units (u nknown) date) [History Confirmed unknown) 12/04/21] (unknown) (no (unknown) (unknown) Patient: (units (unkno wn) date) Yolanda Britton unknown) MR#: [id number] (unknown) (no (unknown) (unknown) Piriformis (units (unk nown) date) syndrome unknown) (unknown) (no (unknown) (unknown) Plan (units (unkno wn) date) unknown) (unknown) (no (unknown) (unknown) Position Sitting (units (unknown) date) unknown) (unknown) (no (unknown) (unknown) Psych (units (unkno wn) date) unknown) (unknown) (no (unknown) (unknown) Pulse 87 (units (unkno wn) date) unknown) (unknown) (no (unknown) (unknown) Pulse Oximetry (units (unknown) date) (%) 97 unknown) (unknown) (no (unknown) (unknown) Pulse Source (units (u nknown) date) Monitor unknown) (unknown) (no (unknown) (unknown) ROS (units (unkno wn) date) unknown) (unknown) (no (unknown) (unknown) Reason For Visit (units (unknown) date) unknown) (unknown) (no (unknown) (unknown) Records are not (units (unknown) date) easily available unknown) and she does not have details. Each episode is (unknown) (no (unknown) (unknown) Resp (units (unkno wn) date) unknown) (unknown) (no (unknown) (unknown) Retrieved and (units ( unknown) date) reviewed the unknown) anesthesia records from her 2015 procedure. She (unknown) (no (unknown) (unknown) SENSITIVE TO (units (u nknown) date) NARCOTICS Allergy unknown) (Severe, Uncoded 12/04/21 16:07) (unknown) (no (unknown) (unknown) SUBCUT QMONTH (units ( unknown) date) 06/13/21 [History unknown) Confirmed 12/04/21] (unknown) (no (unknown) (unknown) Sacral (units (unkno wn) date) dysfunction unknown) (unknown) (no (unknown) (unknown) She has not (units (un known) date) measured her unknown) temperature in the middle of 1 of these episodes. (unknown) (no (unknown) (unknown) Signed By: (units (unk nown) date) <Electronically unknown) signed by Rocco Pyle MD> (unknown) (no (unknown) (unknown) Signed with (units (un known) date) Addenda unknown) (unknown) (no (unknown) (unknown) Smoking Status: (units (unknown) date) Former smoker unknown) (unknown) (no (unknown) (unknown) Social History (units (unknown) date) unknown) (unknown) (no (unknown) (unknown) Speech and (units (unk nown) date) Movement: speech unknown) and movement normal (unknown) (no (unknown) (unknown) Status post (units (un known) date) endometrial unknown) ablation (07/11/14) (unknown) (no (unknown) (unknown) Status post (units (un known) date) laparoscopy (1982) unknown) (unknown) (no (unknown) (unknown) Status post (units (un known) date) laparoscopy (2001) unknown) (unknown) (no (unknown) (unknown) Status: Acute (units ( unknown) date) unknown) (unknown) (no (unknown) (unknown) Sulfa (units (unkno wn) date) (Sulfonamide unknown) Antibiotics) [SULFA (SULFONAMIDE ANTIBIOTICS)] Allergy (unknown) (no (unknown) (unknown) Surgical History (units (unknown) date) (Reviewed 09/12/21 unknown) @ 14:01 by Milka Viramontes PA-C) (unknown) (no (unknown) (unknown) Sweating, (units (unkn own) date) flushing episodes unknown) are of unclear etiology. We discussed several (unknown) (no (unknown) (unknown) Tear of (units (unkno wn) date) acetabular labrum unknown) (unknown) (no (unknown) (unknown) This note may (units ( unknown) date) have been all or unknown) partially generated using voice recognition (unknown) (no (unknown) (unknown) Thought Content: (units (unknown) date) normal unknown) (unknown) (no (unknown) (unknown) Thought Process: (units (unknown) date) normal unknown) (unknown) (no (unknown) (unknown) Thyroid status (units (unknown) date) was reassessed in unknown) February as mildly hyperthyroid. Fasting blood (unknown) (no (unknown) (unknown) Tobacco + (units (unkn own) date) Substance Use unknown) (unknown) (no (unknown) (unknown) Tobacco Status (units (unknown) date) unknown) (unknown) (no (unknown) (unknown) Visit Reasons: (units (unknown) date) another blood shot unknown) eye, and over heating 08 (unknown) (no (unknown) (unknown) Vitals (units (unkno wn) date) unknown) (unknown) (no (unknown) (unknown) Weight 223 lb (units ( unknown) date) unknown) (unknown) (no (unknown) (unknown) alcohol intake: (units (unknown) date) current unknown) (unknown) (no (unknown) (unknown) and ketamine (units (u nknown) date) during her unknown) procedure. (unknown) (no (unknown) (unknown) another blood (units ( unknown) date) shot eye - this unknown) 5th time in 4moths now today its better and she (unknown) (no (unknown) (unknown) characterized by (units (unknown) date) flushing of the unknown) face/neck/chest, profuse sweating, and fatigue. (unknown) (no (unknown) (unknown) cholecalciferol (units (unknown) date) (vitamin D3) 25 unknown) mcg (1,000 unit) capsule 1,000 unit PO DAILY (unknown) (no (unknown) (unknown) clear inciting (units (unknown) date) event, injury, or unknown) new exposure. This has happened about 5 times (unknown) (no (unknown) (unknown) codeine [CODEINE] (units (unknown) date) Allergy (Mild, unknown) Verified 12/04/21 16:07) (unknown) (no (unknown) (unknown) consistent (units (unk nown) date) patterns. It is unknown) probably worth another conversation with ob/gyn physician (unknown) (no (unknown) (unknown) couple of weeks. (units (unknown) date) No vision changes unknown) or pain. Patient is currently on long-term (unknown) (no (unknown) (unknown) cscope- she will (units (unknown) date) check with her GI unknown) dr (unknown) (no (unknown) (unknown) cyclobenzaprine 10 (units (unknown) date) mg tablet 10 mg PO unknown) TID PRN muscle spasm #21 tabs 10/25/21 [Rx (unknown) (no (unknown) (unknown) describes an (units (u nknown) date) episode that unknown) looked like this following anesthesia in 2014. (unknown) (no (unknown) (unknown) despite use of (units (unknown) date) prednisone. I am a unknown) little disturbed by the similarity between (unknown) (no (unknown) (unknown) detailed log of (units (unknown) date) symptoms, unknown) especially with attention to any potential triggers or (unknown) (no (unknown) (unknown) diphenhydramine (units (unknown) date) 25 unknown) mg-acetaminophen 500 mg tablet (Tylenol PM Extra Strength) 1 (unknown) (no (unknown) (unknown) diphenhydramine-a (units (unknown) date) cetaminophen unknown) [Tylenol PM] PO BEDTIME 03/09/19 [History (unknown) (no (unknown) (unknown) doxylamine (units (unk nown) date) succinate 25 mg unknown) tablet (Unisom (doxylamine)) 25 mg PO BEDTIME PRN (unknown) (no (unknown) (unknown) exertion. This (units (unknown) date) started in spring unknown) with no clear inciting event. Potentially (unknown) (no (unknown) (unknown) eye support PO (units (unknown) date) 11/27/20 [History unknown) Confirmed 12/04/21] (unknown) (no (unknown) (unknown) fluconazole (units (un known) date) unknown) (unknown) (no (unknown) (unknown) following topics: (units (unknown) date) unknown) (unknown) (no (unknown) (unknown) from vasomotor (units (unknown) date) symptoms of unknown) menopause and that she is currently on hormone (unknown) (no (unknown) (unknown) galcanezumab (units (u nknown) date) prescribing unknown) information and associated medical literature does not (unknown) (no (unknown) (unknown) galcanezumab-gnlm (units (unknown) date) 120 mg/mL unknown) subcutaneous pen injector (Emgality Pen) 120 mg (unknown) (no (unknown) (unknown) glucose has been (units (unknown) date) normal over the unknown) last several times that we have assess this, (unknown) (no (unknown) (unknown) has an appt with (units (unknown) date) eye dr with in 2 unknown) weeks lt eye (unknown) (no (unknown) (unknown) have occurred. If (units (unknown) date) there are any unknown) questions, please contact the Medical Records (unknown) (no (unknown) (unknown) her described (units ( unknown) date) symptoms and the unknown) episode following recovery from anesthesia in (unknown) (no (unknown) (unknown) household (units (unkn own) date) members: none unknown) (unknown) (no (unknown) (unknown) ignore the (units (unk nown) date) similarity between unknown) her described symptoms and classic vasomotor (unknown) (no (unknown) (unknown) in the last 4 (units ( unknown) date) months or so. 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 (units (unk nown) date) Occasional unknown) wrong-word or 'sound-alike' substitutions may have (unknown) (no (unknown) (unknown) mecobalamin (units (un known) date) (vitamin B12) unknown) 1,000 mcg disintegrating tablet,sublingual 1,000 mcg (unknown) (no (unknown) (unknown) melatonin 10 mg (units (unknown) date) capsule 5 mg PO unknown) BEDTIME Sleep 08/24/19 [History Confirmed (unknown) (no (unknown) (unknown) menopausal (units (unk nown) date) symptoms, no unknown) matter how much she denies that this is what is going (unknown) (no (unknown) (unknown) occupational (units (u nknown) date) status: employed unknown) (unknown) (no (unknown) (unknown) occurred due to (units (unknown) date) the inherent unknown) limitations of voice recognition software. Please (unknown) (no (unknown) (unknown) on. (units (unkno wn) date) unknown) (unknown) (no (unknown) (unknown) over heating- (units ( unknown) date) this is not unknown) menopause or the heat, she could have fans on her and (unknown) (no (unknown) (unknown) pantoprazole 20 (units (unknown) date) mg tablet,delayed unknown) release 20 mg PO DAILY 05/10/19 [History (unknown) (no (unknown) (unknown) polyethylene (units (u nknown) date) glycol 3350 17 unknown) gram oral powder packet (Miralax) 17 gram PO DAILY (unknown) (no (unknown) (unknown) possibilities (units ( unknown) date) including unknown) vasomotor symptoms, malignant hyperthermia, medication (unknown) (no (unknown) (unknown) prednisone 10 mg (units (unknown) date) tablet 5 mg PO unknown) DAILY 03/06/21 [History Confirmed 12/04/21] (unknown) (no (unknown) (unknown) prednisone (units (unk nown) date) therapy. unknown) (unknown) (no (unknown) (unknown) reaction, and (units ( unknown) date) anxiety. unknown) Recommended that she take her temperature during 1 of (unknown) (no (unknown) (unknown) read the note (units ( unknown) date) carefully and unknown) recognize, using context, where these substitutions (unknown) (no (unknown) (unknown) received (units (unkno wn) date) sevoflurane, unknown) succinylcholine, rocuronium, dexamethasone, hydromorphone, (unknown) (no (unknown) (unknown) ref Podiatry- snw (units (unknown) date) told her they dont unknown) take her insurance. will need to do new (unknown) (no (unknown) (unknown) referral to [facility] (units (unknown) date) leslye. unknown) (unknown) (no (unknown) (unknown) regarding her (units ( unknown) date) ongoing hormone unknown) replacement therapy, because it is difficult to (unknown) (no (unknown) (unknown) related to this (units (unknown) date) procedure to see unknown) if it is relevant. Asked the patient to keep a (unknown) (no (unknown) (unknown) relevant history (units (unknown) date) includes having unknown) started Emgality about 1 year ago. She also (unknown) (no (unknown) (unknown) replacement (units (un known) date) therapy that has unknown) been consistent throughout this period of time. (unknown) (no (unknown) (unknown) rizatriptan 10 mg (units (unknown) date) tablet (Maxalt) 10 unknown) mg PO Q2H PRN Migraine Headache #9 tabs (unknown) (no (unknown) (unknown) sentences and no (units (unknown) date) audible wheezes unknown) (unknown) (no (unknown) (unknown) she is still (units (u nknown) date) sweating mostly on unknown) face and head, face turns very red no nausea (unknown) (no (unknown) (unknown) shing[place]- [facility] (units (unknown) date) [place] unknown) (unknown) (no (unknown) (unknown) software. (units (unkn own) date) Although every unknown) effort is made to edit content, wink cutter operator errors (unknown) (no (unknown) (unknown) sublingual DAILY (units (unknown) date) 05/10/19 [History unknown) Confirmed 12/04/21] (unknown) (no (unknown) (unknown) substance use (units ( unknown) date) type: does not use unknown) (unknown) (no (unknown) (unknown) symptoms after (units (unknown) date) the episode unknown) resolved. She says that these symptoms are distinct (unknown) (no (unknown) (unknown) symptoms. It also (units (unknown) date) does not seem to unknown) interact very much with other medications. (unknown) (no (unknown) (unknown) tab PO BEDTIME (units (unknown) date) PRN Sleep 11/17/17 unknown) [History Confirmed 12/04/21] (unknown) (no (unknown) (unknown) td- at [facility] may be (units (unknown) date) utd unknown) (unknown) (no (unknown) (unknown) these episodes to (units (unknown) date) see if she was unknown) objectively hot or not. In-depth review of (unknown) (no (unknown) (unknown) think this is a (units (unknown) date) low risk situation unknown) for the time being. (unknown) (no (unknown) (unknown) to have largely (units (unknown) date) resolved. I agree unknown) with following up with Ophthalmology, but I (unknown) (no (unknown) (unknown) turn up any (units (un known) date) indication at all unknown) that this med is capable of causing similar (unknown) (no (unknown) (unknown) vomiting, or (units (u nknown) date) dizziness unknown) Result panel 17 (unknown) (no (unknown) (unknown) (no value) (units (unk nown) date) unknown) (unknown) (no (unknown) (unknown) (Severe, (units (unkno wn) date) Verified 12/04/21 unknown) 16:07) (unknown) (no (unknown) (unknown) [id number] (units (unkno wn) date) unknown) (unknown) (no (unknown) (unknown) 12/23/21 (units (unkno wn) date) unknown) (unknown) (no (unknown) (unknown) Age/Sex: 56 / F (units (unknown) date) Date of Service: unknown) (unknown) (no (unknown) (unknown) Allergies (units (unkn own) date) unknown) (unknown) (no (unknown) (unknown) [place], [place] (units ( unknown) date) [id number] unknown) (unknown) (no (unknown) (unknown) Arthritis (units (unkn own) date) unknown) (unknown) (no (unknown) (unknown) Asthma (units (unkno wn) date) unknown) (unknown) (no (unknown) (unknown) Attending Dr: (units ( unknown) date) Natacha Resendez unknown) (unknown) (no (unknown) (unknown) Bruises easily (units (unknown) date) unknown) (unknown) (no (unknown) (unknown) Constipation (units (u nknown) date) unknown) (unknown) (no (unknown) (unknown) : 1965 (units (unknown) date) Acct:[id number] unknown) (unknown) (no (unknown) (unknown) Dept at (units (unkno wn) date) . unknown) (unknown) (no (unknown) (unknown) Documented By: (units (unknown) date) Natacha Resendez unknown) 12/23/21 1430 (unknown) (no (unknown) (unknown) Draft (units (unkno wn) date) unknown) (unknown) (no (unknown) (unknown) Family History (units (unknown) date) (Reviewed unknown) 09/12/21 @ 14:01 by Milka Viramontes PA-C) (unknown) (no (unknown) (unknown) Father Heart (units (u nknown) date) disease unknown) (unknown) (no (unknown) (unknown) Fibromyalgia (units (u nknown) date) unknown) (unknown) (no (unknown) (unknown) [facility]) (unknown) (no (unknown) (unknown) Former smoker (units ( unknown) date) unknown) (unknown) (no (unknown) (unknown) Gastroparesis (units ( unknown) date) unknown) (unknown) (no (unknown) (unknown) Grandfather (units (un known) date) Heart disease unknown) (unknown) (no (unknown) (unknown) Grandfather (units (un known) date) Stomach cancer unknown) (unknown) (no (unknown) (unknown) Grandmother (units (un known) date) Cancer unknown) (unknown) (no (unknown) (unknown) Greater (units (unkno wn) date) trochanteric unknown) bursitis of right hip (unknown) (no (unknown) (unknown) Gynecology Visit (units (unknown) date) unknown) (unknown) (no (unknown) (unknown) HIVES (units (unkno wn) date) unknown) (unknown) (no (unknown) (unknown) Heart murmur (units (u nknown) date) unknown) (unknown) (no (unknown) (unknown) History of foot (units (unknown) date) surgery (08/2015) unknown) (unknown) (no (unknown) (unknown) History of (units (unk nown) date) pneumonia unknown) (unknown) (no (unknown) (unknown) History of third (units (unknown) date) molar tooth unknown) extraction (1984) (unknown) (no (unknown) (unknown) History of (units (unk nown) date) thyroidectomy unknown) (07/11/14) (unknown) (no (unknown) (unknown) Intake Note: (units (u nknown) date) unknown) (unknown) (no (unknown) (unknown) Intake performed (units (unknown) date) by: unknown) Felicia Ramirez (unknown) (no (unknown) (unknown) Intake (units (unkno wn) date) unknown) (unknown) (no (unknown) (unknown) Intake- Clincial (units (unknown) date) Staff unknown) (unknown) (no (unknown) (unknown) Last Menstural (units (unknown) date) Cycle + Details unknown) (unknown) (no (unknown) (unknown) Loc: [facility] (units (unkno wn) date) unknown) (unknown) (no (unknown) (unknown) Low blood sugar (units (unknown) date) unknown) (unknown) (no (unknown) (unknown) 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) () (unknown) (no (unknown) (unknown) Medical History (units (unknown) date) (Reviewed unknown) 09/12/21 @ 14:01 by Milka Viramontes PA-C) (unknown) (no (unknown) (unknown) Menstrual (units (unkn own) date) migraine, not unknown) intractable, without status migrainosus (unknown) (no (unknown) (unknown) Migraines (units (unkn own) date) unknown) (unknown) (no (unknown) (unknown) Mother Stroke (units ( unknown) date) unknown) (unknown) (no (unknown) (unknown) NAUSEA (units (unkno wn) date) unknown) (unknown) (no (unknown) (unknown) Osteoarthritis (units (unknown) date) unknown) (unknown) (no (unknown) (unknown) Other Menstrual (units (unknown) date) Period: unknown) Postmenopausal (unknown) (no (unknown) (unknown) PFSH (units (unkno wn) date) unknown) (unknown) (no (unknown) (unknown) Patient: (units (unkno wn) date) Yolanda Britton unknown) MR#: [id number] (unknown) (no (unknown) (unknown) Piriformis (units (unk nown) date) syndrome unknown) (unknown) (no (unknown) (unknown) Reason For Visit (units (unknown) date) unknown) (unknown) (no (unknown) (unknown) SENSITIVE TO (units (u nknown) date) NARCOTICS Allergy unknown) (Severe, Uncoded 12/04/21 16:07) (unknown) (no (unknown) (unknown) Sacral (units (unkno wn) date) dysfunction unknown) (unknown) (no (unknown) (unknown) Signed By: (units (unk nown) date) unknown) (unknown) (no (unknown) (unknown) Smoking Status: (units (unknown) date) Former smoker unknown) (unknown) (no (unknown) (unknown) Social History (units (unknown) date) unknown) (unknown) (no (unknown) (unknown) Status post (units (un known) date) endometrial unknown) ablation (07/11/14) (unknown) (no (unknown) (unknown) Status post (units (un known) date) laparoscopy unknown) (1982) (unknown) (no (unknown) (unknown) Status post (units (un known) date) laparoscopy unknown) (2001) (unknown) (no (unknown) (unknown) Sulfa (units (unkno wn) date) (Sulfonamide unknown) Antibiotics) [SULFA (SULFONAMIDE ANTIBIOTICS)] Allergy (unknown) (no (unknown) (unknown) Surgical History (units (unknown) date) (Reviewed unknown) 09/12/21 @ 14:01 by Milka Viramontes PA-C) (unknown) (no (unknown) (unknown) TH Phone: (units (unkn own) date) discuss unknown) medications (unknown) (no (unknown) (unknown) Tear of (units (unkno wn) date) acetabular labrum unknown) (unknown) (no (unknown) (unknown) This note may (units ( unknown) date) have been all or unknown) partially generated using voice recognition (unknown) (no (unknown) (unknown) Tobacco + (units (unkn own) date) Substance Use unknown) (unknown) (no (unknown) (unknown) Tobacco Status (units (unknown) date) unknown) (unknown) (no (unknown) (unknown) Visit Reasons: (units (unknown) date) TH phone to unknown) discuss medication (unknown) (no (unknown) (unknown) alcohol intake: (units (unknown) date) current unknown) (unknown) (no (unknown) (unknown) codeine (units (unkno wn) date) [CODEINE] Allergy unknown) (Mild, Verified 12/04/21 16:07) (unknown) (no (unknown) (unknown) have occurred. (units (unknown) date) If there are any unknown) questions, please contact the Medical Records (unknown) (no (unknown) (unknown) household (units (unkn own) date) members: none unknown) (unknown) (no (unknown) (unknown) marital status: (units (unknown) date) unknown unknown) (unknown) (no (unknown) (unknown) may occur. (units (unk nown) date) Occasional unknown) wrong-word or 'sound-alike' substitutions may have (unknown) (no (unknown) (unknown) occupational (units (u nknown) date) status: employed unknown) (unknown) (no (unknown) (unknown) occurred due to (units (unknown) date) the inherent unknown) limitations of voice recognition software. Please (unknown) (no (unknown) (unknown) read the note (units ( unknown) date) carefully and unknown) recognize, using context, where these substitutions (unknown) (no (unknown) (unknown) software. (units (unkn own) date) Although every unknown) effort is made to edit content, wink cutter operator errors (unknown) (no (unknown) (unknown) substance use (units ( unknown) date) type: does not unknown) use Result panel 18 (unknown) (no (unknown) (unknown) (no value) (units (unk nown) date) unknown) (unknown) (no (unknown) (unknown) (1) Sweating: (units ( unknown) date) unknown) (unknown) (no (unknown) (unknown) (Severe, (units (unkno wn) date) Verified 12/04/21 unknown) 16:07) (unknown) (no (unknown) (unknown) [id number] (units (unkno wn) date) unknown) (unknown) (no (unknown) (unknown) 12/23/21 (units (unkno wn) date) unknown) (unknown) (no (unknown) (unknown) 12/25/21 1831 (units ( unknown) date) unknown) (unknown) (no (unknown) (unknown) 13 (units (unkno wn) date) unknown) (unknown) (no (unknown) (unknown) 56 year old G2 (units (unknown) date) P1 with profuse unknown) sweating (unknown) (no (unknown) (unknown) Age/Sex: 56 / F (units (unknown) date) Date of Service: unknown) (unknown) (no (unknown) (unknown) All participants (units (unknown) date) + their role: unknown) (Providers,Parent ,Spouse,etc): (unknown) (no (unknown) (unknown) Allergies (units (unkn own) date) unknown) (unknown) (no (unknown) (unknown) [place], [place] (units ( unknown) date) [address] unknown) (unknown) (no (unknown) (unknown) Arthritis (units (unkn own) date) unknown) (unknown) (no (unknown) (unknown) Assessment + (units (u nknown) date) Plan unknown) (unknown) (no (unknown) (unknown) Assessment and (units (unknown) date) Plan: unknown) (unknown) (no (unknown) (unknown) Assessment: (units (un known) date) unknown) (unknown) (no (unknown) (unknown) Asthma (units (unkno wn) date) unknown) (unknown) (no (unknown) (unknown) Attending Dr: (units ( unknown) date) Natacha Resendez unknown) (unknown) (no (unknown) (unknown) Bruises easily (units (unknown) date) unknown) (unknown) (no (unknown) (unknown) Chief Complaint: (units (unknown) date) Discuss unknown) medication (unknown) (no (unknown) (unknown) Constipation (units (u nknown) date) unknown) (unknown) (no (unknown) (unknown) : 1965 (units (unknown) date) Acct:[id number] unknown) (unknown) (no (unknown) (unknown) Dept at (units (unkno wn) date) . unknown) (unknown) (no (unknown) (unknown) Documented By: (units (unknown) date) Natacha Resendez unknownNahed ZAPATA 12/23/21 1430 (unknown) (no (unknown) (unknown) Documenting (units (un known) date) clinical unknown) information in EHR/Medical record: 4 (unknown) (no (unknown) (unknown) Family History (units (unknown) date) (Reviewed unknown) 09/12/21 @ 14:01 by Milka Viramontes PA-C) (unknown) (no (unknown) (unknown) Father Heart (units (u nknown) date) disease unknown) (unknown) (no (unknown) (unknown) Fibromyalgia (units (u nknown) date) unknown) (unknown) (no (unknown) (unknown) [facility] unknown) (unknown) (no (unknown) (unknown) Former smoker (units ( unknown) date) unknown) (unknown) (no (unknown) (unknown) Gastroparesis (units ( unknown) date) unknown) (unknown) (no (unknown) (unknown) Grandfather (units (un known) date) Heart disease unknown) (unknown) (no (unknown) (unknown) Grandfather (units (un known) date) Stomach cancer unknown) (unknown) (no (unknown) (unknown) Grandmother (units (un known) date) Cancer unknown) (unknown) (no (unknown) (unknown) Greater (units (unkno wn) date) trochanteric unknown) bursitis of right hip (unknown) (no (unknown) (unknown) Gynecology Visit (units (unknown) date) unknown) (unknown) (no (unknown) (unknown) HIVES (units (unkno wn) date) unknown) (unknown) (no (unknown) (unknown) Heart murmur (units (u nknown) date) unknown) (unknown) (no (unknown) (unknown) History of foot (units (unknown) date) surgery (08/2015) unknown) (unknown) (no (unknown) (unknown) History of (units (unk nown) date) pneumonia unknown) (unknown) (no (unknown) (unknown) History of third (units (unknown) date) molar tooth unknown) extraction (1984) (unknown) (no (unknown) (unknown) History of (units (unk nown) date) thyroidectomy unknown) (07/11/14) (unknown) (no (unknown) (unknown) Intake Note: (units (u nknown) date) unknown) (unknown) (no (unknown) (unknown) Intake performed (units (unknown) date) by: unknown) Felicia Ramirez (unknown) (no (unknown) (unknown) Intake (units (unkno wn) date) unknown) (unknown) (no (unknown) (unknown) Intake- Clincial (units (unknown) date) Staff unknown) (unknown) (no (unknown) (unknown) Last Menstural (units (unknown) date) Cycle + Details unknown) (unknown) (no (unknown) (unknown) Loc: [facility] (units (unkno wn) date) unknown) (unknown) (no (unknown) (unknown) Location of (units (un known) date) patient:: Home unknown) (unknown) (no (unknown) (unknown) Location of (units (un known) date) provider:: Office unknown) (unknown) (no (unknown) (unknown) Low blood sugar (units (unknown) date) unknown) (unknown) (no (unknown) (unknown) 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) (unknown) (no (unknown) (unknown) Medical History (units (unknown) date) (Reviewed unknown) 09/12/21 @ 14:01 by Milka Viramontes PA-C) (unknown) (no (unknown) (unknown) Menstrual (units (unkn own) date) migraine, not unknown) intractable, without status migrainosus (unknown) (no (unknown) (unknown) Migraines (units (unkn own) date) unknown) (unknown) (no (unknown) (unknown) Mother Stroke (units ( unknown) date) unknown) (unknown) (no (unknown) (unknown) NAUSEA (units (unkno wn) date) unknown) (unknown) (no (unknown) (unknown) Note (units (unkno wn) date) unknown) (unknown) (no (unknown) (unknown) Note: (units (unkno wn) date) unknown) (unknown) (no (unknown) (unknown) Notes (units (unkno wn) date) unknown) (unknown) (no (unknown) (unknown) Obtaining and/or (units (unknown) date) reviewing unknown) separately obtained history: 3 (unknown) (no (unknown) (unknown) Ordering (units (unkno wn) date) medications, unknown) tests, or procedures: 2 (unknown) (no (unknown) (unknown) Osteoarthritis (units (unknown) date) unknown) (unknown) (no (unknown) (unknown) Other Menstrual (units (unknown) date) Period: unknown) Postmenopausal (unknown) (no (unknown) (unknown) PFSH (units (unkno wn) date) unknown) (unknown) (no (unknown) (unknown) Patient (units (unkno wn) date) consented to unknown) receive services via telehealth?: Yes (unknown) (no (unknown) (unknown) Patient is a 56 (units (unknown) date) year old unknown) who presents via Telehealth to discuss medication (unknown) (no (unknown) (unknown) Patient, (units (u nknown) date) [place]j unknown) (unknown) (no (unknown) (unknown) Patient: (units (unkno wn) date) Yolanda Britton unknown) MR#: [id number] (unknown) (no (unknown) (unknown) Piriformis (units (unk nown) date) syndrome unknown) (unknown) (no (unknown) (unknown) Plan: (units (unkno wn) date) unknown) (unknown) (no (unknown) (unknown) Preparing to see (units (unknown) date) the patient, unknown) i.e., chart review, review of tests: 4 (unknown) (no (unknown) (unknown) Pt reports that (units (unknown) date) over the last 6 unknown) months she sweats profusely and gets beet red (unknown) (no (unknown) (unknown) Reason For Visit (units (unknown) date) unknown) (unknown) (no (unknown) (unknown) SENSITIVE TO (units (u nknown) date) NARCOTICS Allergy unknown) (Severe, Uncoded 12/04/21 16:07) (unknown) (no (unknown) (unknown) Sacral (units (unkno wn) date) dysfunction unknown) (unknown) (no (unknown) (unknown) She spoke with (units (unknown) date) Dr. Pyle, PCP, unknown) who has ruled out many things with lab work. She (unknown) (no (unknown) (unknown) Signed By: (units (unk nown) date) <Electronically unknown) signed by Natacha Resendez MD> (unknown) (no (unknown) (unknown) Signed (units (unkno wn) date) unknown) (unknown) (no (unknown) (unknown) Smoking Status: (units (unknown) date) Former smoker unknown) (unknown) (no (unknown) (unknown) Social History (units (unknown) date) unknown) (unknown) (no (unknown) (unknown) Status post (units (un known) date) endometrial unknown) ablation (07/11/14) (unknown) (no (unknown) (unknown) Status post (units (un known) date) laparoscopy unknown) (1982) (unknown) (no (unknown) (unknown) Status post (units (un known) date) laparoscopy unknown) (2001) (unknown) (no (unknown) (unknown) Status: Acute (units ( unknown) date) unknown) (unknown) (no (unknown) (unknown) Sulfa (units (unkno wn) date) (Sulfonamide unknown) Antibiotics) [SULFA (SULFONAMIDE ANTIBIOTICS)] Allergy (unknown) (no (unknown) (unknown) Surgical History (units (unknown) date) (Reviewed unknown) 09/12/21 @ 14:01 by Milka Viramontes PA-C) (unknown) (no (unknown) (unknown) TH Phone: (units (unkn own) date) discuss unknown) medications (unknown) (no (unknown) (unknown) Tear of (units (unkno wn) date) acetabular labrum unknown) (unknown) (no (unknown) (unknown) TeleHealth (units (unk nown) date) unknown) (unknown) (no (unknown) (unknown) This note may (units ( unknown) date) have been all or unknown) partially generated using voice recognition (unknown) (no (unknown) (unknown) Time Coding (units (un known) date) Minutes Spent: unknown) (must be on same date of service/appointme nt) (unknown) (no (unknown) (unknown) Time Spent (units (unk nown) date) unknown) (unknown) (no (unknown) (unknown) Tobacco + (units (unkn own) date) Substance Use unknown) (unknown) (no (unknown) (unknown) Tobacco Status (units (unknown) date) unknown) (unknown) (no (unknown) (unknown) Total Time: 13 (units (unknown) date) unknown) (unknown) (no (unknown) (unknown) Visit Reasons: (units (unknown) date) phone to unknown) discuss medication (unknown) (no (unknown) (unknown) Were services (units (u nknown) date) performed via unknown) telephone only?: Yes Why were services performed via (unknown) (no (unknown) (unknown) Will add [facility] and (units (unknown) date) CBC to labs by unknown) Dr. Restrepo. (unknown) (no (unknown) (unknown) alcohol intake: (units (unknown) date) current unknown) (unknown) (no (unknown) (unknown) by Rheum. She is (units (unknown) date) still taking OCP. unknown) (unknown) (no (unknown) (unknown) codeine (units (unkno wn) date) [CODEINE] Allergy unknown) (Mild, Verified 12/04/21 16:07) (unknown) (no (unknown) (unknown) does have labs (units (unknown) date) ordered with Dr. singh) Lauro in a few weeks. She has been on steroids (unknown) (no (unknown) (unknown) have occurred. (units (unknown) date) If there are any unknown) questions, please contact the Medical Records (unknown) (no (unknown) (unknown) household (units (unkn own) date) members: none unknown) (unknown) (no (unknown) (unknown) marital status: (units (unknown) date) unknown unknown) (unknown) (no (unknown) (unknown) may occur. (units (unk nown) date) Occasional unknown) wrong-word or 'sound-alike' substitutions may have (unknown) (no (unknown) (unknown) occupational (units (u nknown) date) status: employed unknown) (unknown) (no (unknown) (unknown) occurred due to (units (unknown) date) the inherent unknown) limitations of voice recognition software. Please (unknown) (no (unknown) (unknown) read the note (units ( unknown) date) carefully and unknown) recognize, using context, where these substitutions (unknown) (no (unknown) (unknown) software. (units (unkn own) date) Although every unknown) effort is made to edit content, wink cutter operator errors (unknown) (no (unknown) (unknown) substance use (units ( unknown) date) type: does not unknown) use (unknown) (no (unknown) (unknown) telephone only?: (units (unknown) date) Patient choice unknown) (unknown) (no (unknown) (unknown) with the (units (unkno wn) date) slightest of unknown) exercise, yardwork or housework. Social History date description facility (no date) Ex-smoker (finding) [facility] Vital Signs date measurement value units +0000 BMI BMI 35.6 kg/m2 [id number] BP_diastolic BP_diastolic 80 mm[H g] [id number]+0000 BP_systolic BP_systolic 122 mm[Hg] [id number]+0000 heart_rate heart_rate 91 /min [id number]+0000 height_metric height_metric 168.91 cm [id number]+0000 height_standard height_standard 66.5 in [id number]+0000 weight_metric weight_metric 46.2 kg [id number]+0000 weight_standard weight_standard 101.86 lb
--- NOTE | 2021-12-29 14:54 | ED Physician Documentation ---
PD HPI CHEST PAIN - Stated complaint Stated Complaint: IRREGULAR HB/LOW TEMP - Chief complaint Chief Complaint: Cardiac - History obtained from History obtained from: Patient - Additional information Additional information: 56-year-old woman with history of gastroparesis, thyroidectomy and insomnia presents for the evaluation of episodic situation that she is noted for quite some time. For the last 6 months or maybe more with light exertion she gets feeling very hot and sweaty and winded with palpitations. It goes away with rest. But it takes some time. She saw her physician, there is no clear diagnosis, but her physician thought it might be malignant hyperthermia. A second physician thought malignant hyperthermia was unlikely because of the lack of exposure to anesthetics temporally and I agree with that. Today she had her episode which was more severe than usual after doing light work in the backyard. She took her temperature and was 93 degrees and then it went up. She called h er doctor's office who advised her to take her own pulse and she felt like sometimes it was stronger and sometimes it was weaker. Review of Systems Ten Systems: 10 systems reviewed and negative Constitutional: reports: Sweats. denies: Fever, Chills Cardiac: denies: Chest pain / pressure, Palpitations Respiratory: reports: Dyspnea. denies: Cough PD PAST MEDICAL HISTORY - Past Medical History Respiratory: Pneumonia - Past Surgical History Past Surgical History: Yes - Present Medications Home Medications: Ambulatory Orders Medication Instructions Recorded Confirmed LORazepam [Lorazepam] 0.5 - 1 mg PO Q6HR PRN #14 tablet 08/08/17 Propranolol [Inderal] 10 mg PO TID #90 tablet 12/29/21 - Allergies Allergies/Adverse Reactions: Allergies Allergy/AdvReac Type Severity Reaction Status Date / Time Sulfa (Sulfonamide Allergy Unknown Verified 12/29/21 14:23 Antibiotics) - Social History Does the pt smoke?: No Smoking Status: Never smoker Does the pt drink ETOH?: No Does the pt have substance abuse?: No - Immunizations Immunizations are current?: Yes - POLST Patient has POLST: No PD ED PE NORMAL - Vitals Vital signs reviewed: Yes - General General: Alert and oriented X 3, No acute distress - HEENT HEENT: PERRL, EOMI - Neck Neck: Supple, no meningeal sign, No bony TTP - Cardiac Cardiac: RRR, No murmur - Respiratory Respiratory: No respiratory distress, Clear bilaterally - Abdomen Abdomen: Non tender - Back Back: No CVA TTP, No spinal TTP - Derm Derm: Normal color, Warm and dry - Extremities Extremities: No edema, No calf tenderness / cord - Neuro Neuro: Alert and oriented X 3, Normal speech Results - Vitals Vitals: Vital Signs - 24 hr 12/29/21 12/29/21 12/29/21 14:23 15:43 16:14 Temperature 36.9 C Heart Rate 104 H 93 86 Respiratory 18 23 16 Rate Blood Pressure 135/76 H 137/88 H 123/79 O2 Saturation 98 98 100 Oxygen O2 Source Room air - EKG (time done) 1428 Rate: Rate (enter#) (97) Rhythm: NSR [place]: Normal Intervals: Normal [place] QRS: Normal Ischemia: Normal ST segments 1526 Rate: Rate (enter#) (89) Rhythm: NSR [place]: Normal Intervals: Normal [place] QRS: Normal Ischemia: Normal ST segments Compare to prior EKG: Changed from prior EKG (This EKG was done after exertion to try to recreate her symptoms, and there was no change.) Computer interpretation: Agree with computer - Labs Labs: Laboratory Tests 12/29/21 12/29/21 12/29/21 15:04 15:04 15:04 WBC 12.1 H RBC 4.13 L Hgb 11.1 L Hct 36.2 L MCV 87.7 MCH 26.9 L MCHC 30.7 L RDW 14.6 Plt Count 318 MPV 8.7 Neut # (Auto) 10.4 H Lymph # (Auto) 1.1 L [place] # (Auto) 0.4 Eos # (Auto) 0.0 Baso # (Auto) 0.1 Absolute Nucleated RBC 0.00 Nucleated RBC % 0.0 PT INR Sodium 136 Potassium 4.0 Chloride 104 Carbon Dioxide 24 Anion Gap 8.0 BUN 18 Creatinine 1.0 Estimated GFR (MDRD) 58 L Glucose 112 H Calcium 8.7 Total Bilirubin 0.3 AST 20 ALT 25 Alkaline Phosphatase 56 Troponin I High Sens 4.1 Total Protein 6.7 Albumin 3.8 Globulin 2.9 Albumin/Globulin Ratio 1.3 Lipase 38 TSH Free T4 Free T3 pg/mL 12/29/21 12/29/21 15:04 15:04 WBC RBC Hgb Hct MCV MCH MCHC RDW Plt Count MPV Neut # (Auto) Lymph # (Auto) [place] # (Auto) Eos # (Auto) Baso # (Auto) Absolute Nucleated RBC Nucleated RBC % PT 11.4 INR 1.0 Sodium Potassium Chloride Carbon Dioxide Anion Gap BUN Creatinine Estimated GFR (MDRD) Glucose Calcium Total Bilirubin AST ALT Alkaline Phosphatase Troponin I High Sens Total Protein Albumin Globulin Albumin/Globulin Ratio Lipase TSH 0.62 Free T4 0.85 Free T3 pg/mL 3.47 - Rads (name of study) Single view chest x-ray is normal Radiology: EMP read contemporaneously PD MEDICAL DECISION MAKING - ED course ED course: 56-year-old woman who has hot flashes not related to menopause which are exertional. This has been going on for about 6 months. Her primary care physician thought it might be malignant hyperthermia and therefore recommended she check her temperature during the episodes and today her temperature was low but I question the accuracy of her thermometer as her temperature edinson supra physiologically back to normal. Her examination is normal. She is noted to have a mildly elevated white blood cell count but she is chronically on steroids and mild anemia. Departure - Departure Disposition: 01 Home, Self Care Clinical Impression: Hot flash not due to menopause Condition: Good Record reviewed to determine appropriate education?: Yes Instructions: ED Chest Pain NonCardiac Prescriptions: Propranolol [Inderal] 10 mg PO TID #90 tablet Comments: You are seen today for episodic symptoms that do not fit a clear pattern but thankfully we have not identified anything terrible. Your EKG did not change with exertion, and it was normal at baseline. Your thyroid function is normal. The only thing we did note is that your white blood cell count is a bit high which is a nonspecific indicator of inflammation and you are mildly anemic. Your white blood cell count was 12.1, your hemoglobin of 11.1. I agree with your counter stitcher that the symptoms are not related to malignant hyperthermia, that just does not fit. I would recommend you follow-up with your primary care physician for consideration of Holter or event monitoring. Return for new or worsening symptoms. Discharge Date/Time: 12/29/21 16:15
--- NOTE | 2021-12-29 15:11 | XRAY Report ---
PROCEDURE: Chest 1 View X-Ray INDICATIONS: Chest Pain TECHNIQUE: One view of the chest was acquired. COMPARISON: 08/08/2017 FINDINGS: Surgical changes and devices: None. Lungs and pleura: An incomplete inspiratory result is noted, with low lung volumes and crowding of t he vascular markings. No focal infiltrates are seen. No large pneumothorax or large pleural effusion can be seen. Mediastinum: Mediastinal contours appear normal. Heart size is normal. Bones and chest wall: No suspicious bony lesions. Overlying soft tissues appear unremarkable. IMPRESSION: Portable chest within normal limits for age. Reviewed by: Demetrio Gibbons MD on 12/29/2021 2:10 PM [id number] Approved by: Demetrio Gibbons MD on 12/29/2021 2:10 PM AKDT Station ID: [id number]
[2021-12-29 15:12] LABS: BASOPHILS # (AUTO) 0.1 10^3/uL (0.0-0.1); BASOPHILS % (AUTO) 0.4 %; EOSINOPHILS % (AUTO) 0.1 %; HCT - HEMATOCRIT 36.2 % (37.0-47.0); HGB - HEMOGLOBIN 11.1 g/dL (12.0-16.0); LYMPHOCYTES # (AUTO) 1.1 10^3/uL (1.5-3.5); LYMPHOCYTES % (AUTO) 9.1 %; MEAN CORPUSCULAR HEMOGLOBIN 26.9 pg (27.0-31.0); MEAN CORPUSCULAR HGB CONC 30.7 g/dL (32.0-36.0); MEAN CORPUSCULAR VOLUME 87.7 fL (81.0-99.0); MEAN PLATELET VOLUME 8.7 fL (7.9-10.8); MONOCYTES # (AUTO) 0.4 10^3/uL (0.0-1.0); MONOCYTES % (AUTO) 3.6 %; NEUTROPHILS # (AUTO) 10.4 10^3/uL (1.5-6.6); NEUTROPHILS % (AUTO) 86.5 %; PLT - PLATELET COUNT 318 10^3/uL (130-450); RED BLOOD COUNT 4.13 10^6/uL (4.20-5.40); RED CELL DISTRIBUTION WIDTH 14.6 % (12.0-15.0); WHITE BLOOD COUNT 12.1 x10^3/uL (4.8-10.8)
[2021-12-29 15:29] LABS: ALBUMIN 3.8 g/dL (3.2-5.5); ALBUMIN/GLOBULIN RATIO 1.3 (1.0-2.2); BILIRUBIN,TOTAL 0.3 mg/dL (0.2-1.0); CALCIUM 8.7 mg/dL (8.5-10.3); PT - PROTHROMBIN TIME 11.4 secs (9.9-12.6); TOTAL PROTEIN 6.7 g/dL (6.7-8.2)
[2021-12-29 15:45] LABS: THYROID STIMULATING HORMONE 0.62 uIU/mL (0.34-5.60)
[2021-12-29 15:46] LABS: FREE T3 3.47 pg/mL (2.5-3.9)
[2021-12-29 15:47] LABS: FREE T4 (FREE THYROXINE) 0.85 ng/dL (0.58-1.64)
[2021-12-29 16:15] VITALS: BP 123/79
== END 2021-12-29 16:15 | disposition home or self-care (01) ==
LOC: ED 14:21
DX: R00.2 Palpitations (principal); R06.09 Other forms of dyspnea; N95.1 Menopausal and female climacteric states
CPT/HCPCS: 36415; 80053; 83690; 84439; 84443; 84481; 84484; 85025; 85610; 93005; 99283; 99284